=== PATIENT | female | born 1950 | race Caucasian/White ===

== ENCOUNTER 2017-05-30 09:42 | Inpatient (IN) | payer MEDICARE, MEDICAID ==
[2017-05-30 12:24] LABS: Hematocrit 31 % (35-47); Hemoglobin 10.5 g/dl (12.0-16.0); Mean Corpuscular HGB Conc 33 g/dl (31-36); Mean Corpuscular Hemoglobin 29 pg (27-31); Mean Corpuscular Volume 87 fL (80-97); Mean Platelet Volume 8 um3 (7.4-10.4); Red Blood Count 3.62 10^6/ul (4.0-5.4); Red Cell Distribution Width 16 % (10.5-15); White Blood Count 15.8 10^3/ul (3.5-10.8)
[2017-05-30 12:38] LABS: Albumin 2.9 g/dL (3.2-5.2); BUN/Creatinine Ratio 30.1 (8-20); C Reactive Protein 76.89 mg/L (< 5.00); Calcium 8.6 mg/dL (8.6-10.3); EGFR African American 101.7 (>60); Potassium 4.5 mmol/L (3.5-5.0); Total Bilirubin 0.3 mg/dL (0.2-1.0); Total Protein 5.9 g/dL (6.4-8.9)
[2017-05-30] MEDS ORDERED: Ketorolac INJ* 30 MG/ML 1 ML VIAL IV ONE (13:06)
--- NOTE | 2017-05-30 13:09 | RAD ---
INDICATION: Infection COMPARISON: None. TECHNIQUE: 4 views of the left heel were obtained. FINDINGS: The adequately corticated bones are properly aligned. Joint spaces appear maintained. Degenerative changes include enthesophyte formation at the origin of the plantar fascia on the calcaneal tubercle. No fracture, dislocation or focal bony abnormality is seen. IMPRESSION: No radiographically apparent acute abnormality of the left heel. If the patient's symptoms persist, follow-up imaging is recommended.
[2017-05-30] MEDS ORDERED: Meropenem 1 GM PREMIX(*) 1 GM/50 ML BAG IV ONE (14:19)
[2017-05-30] MEDS ORDERED: Vancomycin(*) 1,000 MG in NS 0.9% 250 ML* 250 ML IVPB ONE (14:19)
[2017-05-30] MEDS ORDERED: Dextrose 50% Syringe 50 ML* 25 GM/50 ML SYRINGE IV PUSH PRN ×2 (15:25)
[2017-05-30] MEDS ORDERED: Albuterol HFA INHALER* 8 gm MDI INH PRN (16:03)
[2017-05-30] MEDS: Furosemide TAB* 20 MG PO SCH (17:46)
[2017-05-30] MEDS: Insulin LISPRO* 1 UNITS UNIT SUBCUT SCH ×2 (17:46→17:47)
[2017-05-30] MEDS: Meropenem 1 GM PREMIX(*) 1 GM/50 ML BAG IV SCH (17:46)
[2017-05-30 18:11] LABS: Urine Bacteria Absent (Absent); Urine Bilirubin Negative (Negative); Urine Glucose Negative (Negative); Urine Nitrite Negative (Negative)
--- NOTE | 2017-05-30 18:46 | ED ---
Efrain Delgado Alfonso, scribed for Ash Joseph MD on 05/30/17 at 1137 . Skin Complaint - HPI Summary HPI Summary: This patient is a 67 year old F presenting to [facility] with a chief complaint of a left foot ulcer since one week ago. The patient rates the pain 10/10 in severity. Symptoms alleviated by nothing. Patient reports erythema and bleeding at the site. Patient denies drainage. PMHx includes DM. - History of Current Complaint Chief Complaint: EDRashSkinAbscess Time Seen by Provider: 05/30/17 11:30 Stated Complaint: LT FOOT PAIN Hx Obtained From: Patient Onset/Duration: Started Weeks Ago - 1, Still Present Timing: Constant Current Severity: Severe Pain Intensity: 10 Pain Scale Used: 0-10 Numeric Skin Location: Foot - L Character: Redness, Painful Alleviating Symptom(s): Nothing Associated Signs & Symptoms: Tenderness - Allergy/Home Medications Allergies/Adverse Reactions: Allergies Allergy/AdvReac Type Severity Reaction Status Date / Time Empagliflozin Allergy Stomach Verified 05/30/17 09:45 [From Jardiance] Cramps Penicillins Allergy Vomiting Verified 05/30/17 09:45 PMH/Surg Hx/FS Hx/Imm Hx Endocrine/Hematology History: Reports: Hx Diabetes Opthamlomology History: Denies: Hx Legally Blind EENT History: Denies: Hx Deafness Infectious Disease History: No Infectious Disease History: Denies: Traveled Outside the [place] in Last 30 Days - Social History Alcohol Use: None Hx Substance Use: No Substance Use Type: Reports: None Hx Tobacco Use: No Smoking Status (MU): Never Smoked Tobacco Review of Systems Negative: Fever Positive: Other - left foot ulcer, erythema and bleeding at the site; negative drainage All Other Systems Reviewed And Are Negative: Yes Physical Exam Triage Information Reviewed: Yes Vital Signs On Initial Exam: Initial Vitals Temp Pulse Resp BP Pulse Ox 97.9 F 71 16 135/53 96 05/30/17 09:46 05/30/17 09:46 05/30/17 09:46 05/30/17 09:46 05/30/17 09:46 Vital Signs Reviewed: Yes Appearance: Positive: Well-Appearing, No Pain Distress, Obese Skin: Positive: Warm, Skin Color Reflects Adequate Perfusion, Dry, Other - Open ulcer medial aspect of the left heal. 5-6 cm of surrounding erythema. Head/Face: Positive: Normal Head/Face Inspection Eyes: Positive: Normal ENT: Positive: Normal ENT inspection Neck: Positive: Supple, Nontender Respiratory/Lung Sounds: Positive: Clear to Auscultation, Breath Sounds Present Cardiovascular: Positive: RRR, Other - Capillary refill of 3 seconds at left foot. Abdomen Description: Positive: Nontender, Soft Bowel Sounds: Positive: Present Musculoskeletal: Positive: Other - Tenderness surrounding the ulcer. Neurological: Positive: Normal, Sensory/Motor Intact, Alert, Oriented to Person Place, Time, CN Intact II-III Psychiatric: Positive: Normal, Affect/Mood Appropriate Diagnostics - Vital Signs Vital Signs Temp Pulse Resp BP Pulse Ox 05/30/17 09:46 97.9 F 71 16 135/53 96 - Laboratory Lab Results: Lab Results 05/30/17 05/30/17 05/30/17 Range/Units 12:08 12:08 12:08 WBC 15.8 H (3.5-10.8) 10^3/ul RBC 3.62 L (4.0-5.4) 10^6/ul Hgb 10.5 L (12.0-16.0) g/dl Hct 31 L (35-47) % MCV 87 (80-97) fL MCH 29 (27-31) pg MCHC 33 (31-36) g/dl RDW 16 H (10.5-15) % Plt Count 370 (150-450) 10^3/ul MPV 8 (7.4-10.4) um3 Neut % (Auto) 79.9 (38-83) % Lymph % (Auto) 9.2 L (25-47) % Toole % (Auto) 9.0 (1-9) % Eos % (Auto) 1.3 (0-6) % Baso % (Auto) 0.6 (0-2) % Absolute Neuts (auto) 12.6 H (1.5-7.7) 10^3/ul Absolute Lymphs (auto) 1.5 (1.0-4.8) 10^3/ul Absolute Monos (auto) 1.4 H (0-0.8) 10^3/ul Absolute Eos (auto) 0.2 (0-0.6) 10^3/ul Absolute Basos (auto) 0.1 (0-0.2) 10^3/ul Absolute Nucleated RBC 0.01 10^3/ul Nucleated RBC % 0.1 INR (Anticoag Therapy) 1.14 H (0.89-1.11) Sodium 136 (133-145) mmol/L Potassium 4.5 (3.5-5.0) mmol/L Chloride 101 (101-111) mmol/L Carbon Dioxide 32 (22-32) mmol/L Anion Gap 3 (2-11) mmol/L BUN 22 (6-24) mg/dL Creatinine 0.73 (0.51-0.95) mg/dL Est GFR ( Amer) 101.7 (>60) Est GFR (Non-Af Amer) 79.0 (>60) BUN/Creatinine Ratio 30.1 H (8-20) Glucose 188 H (70-100) mg/dL Lactic Acid (0.5-2.0) mmol/L Calcium 8.6 (8.6-10.3) mg/dL Total Bilirubin 0.30 (0.2-1.0) mg/dL AST 15 (13-39) U/L ALT 23 (7-52) U/L Alkaline Phosphatase 106 H (34-104) U/L Troponin I 0.00 (<0.04) ng/mL C-Reactive Protein 76.89 H (< 5.00) mg/L Total Protein 5.9 L (6.4-8.9) g/dL Albumin 2.9 L (3.2-5.2) g/dL Globulin 3.0 (2-4) g/dL Albumin/Globulin Ratio 1.0 (1-3) 05/30/17 Range/Units 12:08 WBC (3.5-10.8) 10^3/ul RBC (4.0-5.4) 10^6/ul Hgb (12.0-16.0) g/dl Hct (35-47) % MCV (80-97) fL MCH (27-31) pg MCHC (31-36) g/dl RDW (10.5-15) % Plt Count (150-450) 10^3/ul MPV (7.4-10.4) um3 Neut % (Auto) (38-83) % Lymph % (Auto) (25-47) % Toole % (Auto) (1-9) % Eos % (Auto) (0-6) % Baso % (Auto) (0-2) % Absolute Neuts (auto) (1.5-7.7) 10^3/ul Absolute Lymphs (auto) (1.0-4.8) 10^3/ul Absolute Monos (auto) (0-0.8) 10^3/ul Absolute Eos (auto) (0-0.6) 10^3/ul Absolute Basos (auto) (0-0.2) 10^3/ul Absolute Nucleated RBC 10^3/ul Nucleated RBC % INR (Anticoag Therapy) (0.89-1.11) Sodium (133-145) mmol/L Potassium (3.5-5.0) mmol/L Chloride (101-111) mmol/L Carbon Dioxide (22-32) mmol/L Anion Gap (2-11) mmol/L BUN (6-24) mg/dL Creatinine (0.51-0.95) mg/dL Est GFR ( Amer) (>60) Est GFR (Non-Af Amer) (>60) BUN/Creatinine Ratio (8-20) Glucose (70-100) mg/dL Lactic Acid 1.4 (0.5-2.0) mmol/L Calcium (8.6-10.3) mg/dL Total Bilirubin (0.2-1.0) mg/dL AST (13-39) U/L ALT (7-52) U/L Alkaline Phosphatase (34-104) U/L Troponin I (<0.04) ng/mL C-Reactive Protein (< 5.00) mg/L Total Protein (6.4-8.9) g/dL Albumin (3.2-5.2) g/dL Globulin (2-4) g/dL Albumin/Globulin Ratio (1-3) Result Diagrams: 05/30/17 12:08 05/30/17 12:08 Lab Statement: Any lab studies that have been ordered have been reviewed, and results considered in the medical decision making process. - Radiology Heel X-ray Radiology Interpretation Completed By: Radiologist - No radiographically apparent acute abnormality of the left heel. If the patient's symptoms persist, follow-up imaging is recommended. ED physician has reviewed this radiology report and agrees. Course/Dx - Course Course Of Treatment: Ms. Henry presented with a diabetic foot ulcer that she has not had care for recently and has gotten red and painful. She looks acutely infected and was started on antibiotics and admitted to the hospitalist service. - Diagnoses Provider Diagnoses: Diabetic foot ulcer - Physician Notifications Discussed Care Of Patient With: Yoselin Dietz Time Discussed With Above Provider: 13:46 Instructed by Provider To: Other - Consulted Dr. Dietz (surgeon) at 1346 regarding the patients case. Discharge - Discharge Plan Condition: Stable Disposition: ADMITTED TO [facility] documentation as recorded by the Efrain segura Alfonso accurately reflects the service I personally performed and the decisions made by me, Ash Joseph MD.
--- NOTE | 2017-05-30 20:40 | PN ---
Progress Note - Progress Note Date of Service: 05/30/17 Note: Brief Note: (full surgery consult dictated; case discussed w/ Dr. Dietz) 67 yo w/ nonhealing painful Left heel ulcer s/p angioplasty w/ stenting of LLE ( at [facility] in the Spring of this year), with no arterial signals by handheld Doppler at bedside. Antibiotics initiated per hospitalist. Vascular lab will not do arterial study until details of above angio/stenting is available (I requested records). Will order MRI to r/o osteo (plain film was neg). May require CT angio to further define any potential options for revascularization. Will order her usual Eliquis for the present as there is no immediate anticipated indication for surgical intervention. Dr. Dietz to follow.
--- NOTE | 2017-05-30 20:41 | PN ---
Progress Note - Progress Note Date of Service: 05/30/17 Note: Obtained records from [facility] which confirm that patient is on eliquis for atrial fibrillation. There is no report of a history of TIA or stroke.
[2017-05-30] MEDS: celeCOXIB CAP* 200 MG PO SCH (22:03)
[2017-05-30] MEDS: Apixaban* 5 MG TAB PO SCH (22:03)
[2017-05-30] MEDS: Insulin GLARGINE(*) 1 UNITS UNIT SUBCUT SCH (22:04)
--- NOTE | 2017-05-30 22:21 | HP ---
CC: Andreina Meraz NP, [place]* [facility] MEDICINE HISTORY AND PHYSICAL: DATE OF ADMISSION: 05/30/17 PRIMARY CARE PHYSICIAN: Andreina Meraz NP in [place]. ATTENDING PHYSICIAN: Dr. Rohan Reed* (dictation provided by Nicole Deng NP). CHIEF COMPLAINT: Diabetic foot wound. HISTORY OF PRESENT ILLNESS: Ms. Henry is a 67-year-old female with a past medical history of diabetes, which is insulin dependent; hypertension; CHF of unknown type; and stents to her lower extremities for which she takes Xarelto, who presents to the hospital today with concern for diabetic foot ulcers. Ms. Henry has never been a patient at our hospital and is a very poor historian, but it appears from her report that she last was seen at [facility] in October or November of this year for the diabetic foot ulcer to her left heel. She states that she has no longer been able to afford wound care and other treatment for it. She has been following up with her primary care physician in [place]. She states it was healing well but then over the past week it began to look infected and become very painful. She has also noted ankle swelling and pain. She has seen some purulent drainage. She has had no fever. No chills. She denies other symptoms. She does report cough, which is nonproductive. She is a long-term smoker and continues to smoke about 5 cigarettes a day. She denies any chest pain. She has no nausea, vomiting, diarrhea, or abdominal pain. In the emergency room, Ms. Henry was confirmed to have odoriferous left medial heel ulceration. She had a heel x-ray that showed no evidence of osteomyelitis. She had an elevated white blood cell count of 15. Her CRP is elevated to 76.89. Gram stain shows polymicrobial infection with gram-positive and gram-negative bacteria. Her vitals are stable, she is afebrile. PAST MEDICAL HISTORY: 1. Type 2 diabetes, insulin dependent. 2. Hypertension. 3. Congestive heart failure, unknown type. 4. History of stents to her leg. 5. History of cataract surgery. 6. History of aortic valve surgery as a child. MEDICATIONS: 1. Apixaban 5 mg p.o. b.i.d. 2. Santyl daily p.r.n. 3. NovoLog insulin 20 units with each meal plus a sliding scale. 4. Lantus insulin 62 units subcutaneously before bed. 5. Atorvastatin 40 mg p.o. daily. 6. Diltiazem 240 mg p.o. daily. 7. Furosemide 20 mg in the p.m. and 40 mg in the a.m. 8. Metoprolol succinate 25 mg p.o. daily. 9. Celecoxib 200 mg p.o. b.i.d. ALLERGIES: To EMPAGLIFLOZIN and PENICILLINS. FAMILY HISTORY: The patient reports her mother of old age and dad related to injuries received in the war. SOCIAL HISTORY: The patient is a long-term smoker and started at age 11. She currently smokes about 5 cigarettes a day. She reports she drinks alcohol about once per year. No reported drug use. She lives alone, but states that her daughter, Blu, would be the healthcare proxy. REVIEW OF SYSTEMS: A 14-point review of systems was completed with Ms. Henry and all those not mentioned above were negative. PHYSICAL EXAMINATION GENERAL: Ms. Henry is sitting in the bed. She is in no acute distress. VITAL SIGNS: Temperature 97.9, pulse rate 71, respiratory rate 16, O2 saturation 98% on room air, blood pressure 150/29. LUNGS: Clear to auscultation bilaterally with no accessory muscle use and good aeration. HEART: S1 and S2. No murmur, rub, or gallop and regular. ABDOMEN: Soft, nontender with bowel sounds positive x4. EXTREMITIES: No cyanosis or edema. NEUROLOGIC: She is alert, she is oriented x3. She moves all extremities equally. There is no facial asymmetry or focal weakness. Extraocular movements are intact. SKIN: The patient has about a 3 cm oval diabetic foot ulcer to the medial portion of her left heel, it is purulent and odoriferous. She has some erythema on the front part of her crabtree, about half way up, which she states is new. LABORATORY DATA: WBC 15.8, hemoglobin 10.5, hematocrit 31, platelet count 370. INR 1.14. Sodium 136, potassium 4.5, chloride 101, serum bicarbonate 32, BUN 22, creatinine 0.73, glucose 188, lactic acid 1.4. Troponin 0.00. CRP 76.89. Heel x- ray shows no evidence of osteomyelitis. ASSESSMENT AND PLAN: Ms. Henry is a 67-year-old female with a past medical history of diabetes, which is insulin dependent; hypertension; peripheral vascular disease; and congestive heart failure, who presents to the hospital today with concern of a diabetic foot wound to her left heel. Plans are for inpatient admission as I expect her length of stay to be greater than 2 days for the followin. Diabetic foot wound: The patient likely has a polymicrobial infection. Plan to treat with meropenem. She will be seen in consultation by the surgical team to discuss debridement or other treatment. Plan to hold Eliquis in the event that surgical intervention is needed. She has leukocytosis, but no other markers for systemic inflammatory response syndrome and does not meet sepsis criteria today. She has no evidence of osteomyelitis on the heel x-ray. Plan to continue meropenem. 2. Suspected COPD: Patient becomes SOB when she is anxious but is not hypoxic on room air at this time. I have suggested to her that she likely has COPD based on her smoking history and have recommended that she use albuterol prn and consider follow up with Pulmonology. 3. Hypertension: Plan to continue patient's home furosemide and metoprolol. Continue diltiazem. 4. Congestive heart failure: No evidence of acute exacerbation. Continue furosemide. Plan to try to obtain records from [facility] as this is where the patient has had most of her care in the past. 5. Eliquis use: The patient states that she takes this because of her stents. I am suspicious that perhaps she has atrial fibrillation as she is on diltiazem and metoprolol as well as Eliquis. Again, we will look to obtain the records from [place]. 6. DVT prophylaxis with heparin subcu. 7. Code status is full code. TIME SPENT: Approximately 60 minutes were spent on the admission of this patient, more than half the time spent with the patient at the bedside reviewing the events leading up to this hospitalization, performing the physical examination, and reviewing the plan of care. NICOLE DENG NP [id number]/[facility] #: [id number] YUE
--- NOTE | 2017-05-31 00:11 | CONS ---
CC: [place]. [place]ina [place], [place]; V[facility] Service and Wound Clinic, [facility]* SURGICAL CONSULT NOTE: DATE OF CONSULT: 05/30/17 ATTENDING SURGEON: Yoselin Dietz MD CHIEF COMPLAINT: Left heel pain. HISTORY OF PRESENT ILLNESS: This is a 67-year-old diabetic, hypertensive, smoker, who has had a non-healing left heel ulcer since August of this year. She states that she underwent angioplasty and stenting x2 of the Left lower extremity in the Spring at [facility] with some improvement. She states that the heel ulcer had been relatively asymptomatic with gradual progression of healing, utilizing topical Santyl until approximately 1 week ago. At that time she noticed increased pain as well as some increase in size of the wound. At this point, she has pain all of the time and particularly with weightbearing or activity, i.e., walking. She denies fever or chills. She has been followed at the wound clinic in [place]. Her primary care office is in [place]. She has not had any other wound issues. She walks regularly and other than recently has not had claudication symptoms. A swab for C and S was taken in the ED; we are awaiting records from [facility]. PAST MEDICAL HISTORY: Type 2 diabetes, hypertension, CHF, hyperlipidemia, peripheral vascular disease, active smoker. She denies history of LA. She was treated as an inpatient for an arrhythmia related problem earlier this year. She denies history of chronic atrial fibrillation. She states that she is on Eliquis since her peripheral vascular intervention. She has not been seen for followup by Cardiology. PAST SURGICAL HISTORY: Left lower extremity angioplasty and stents x2 earlier this year, bilateral cataract extractions. CURRENT MEDICATIONS: Include: 1. Metoprolol. 2. Lantus. 3. NovoLog. 4. Furosemide. 5. Eliquis. 6. Celebrex. 7. Diltiazem. 8. Atorvastatin. 9. Santyl. She is on the hospitalist service and has vancomycin and meropenem ordered as well. DRUG ALLERGIES: Listed as PENICILLIN and EMPAGLIFLOZIN. I did not ask her about specific reactions. FAMILY HISTORY: Negative for bleeding or thromboembolic disease. SOCIAL HISTORY: The patient currently lives alone. She has a dog and a cat. She is a smoker of up to 2 packs per day since age 11, recently having cut down to 5 to 6 cigarettes per day, but still currently smoking. She drinks alcohol rarely and denies other drug use. REVIEW OF SYSTEMS: General: As above, no additions. Cardiovascular: As above , no additions. Respiratory: No history of asthma or COPD. Smoking history as noted. GI: No upper GI symptoms. Colonoscopy done more than 10 years ago. No interval problems reported. : No problems reported. She states that her renal function is normal. Endocrine: She is treated for type 2 diabetes. She states that her most recent A1c is 8.9, which is down from previous. She does fingersticks at home before each meal. She denies history of diabetic neuropathy. PHYSICAL EXAMINATION: Height 5 feet 2 inches, weight 233 pounds, BMI 42.6. Temperature 97.9. Blood pressure ranging from 129-150/29-70, pulse 71, respirations 16, room air saturation 98%. General: Well-nourished, obese female in no acute distress. Skin: Warm and dry. No suspicious rashes or lesions noted. See also below for extremities. Heart: Regular rate and rhythm , though heart tones are distant. No murmur appreciated. Lungs: Clear to auscultation. Abdomen: Obese. Extremities: Lower extremities noted for some dull erythema of the mid aspect of the left lower extremity which extends into the foot and toes. On the medial aspect of the left heel is an open wound measuring approximately 4.5 x 2.5 cm, is full thickness with some necrotic debris in the base. There is a rim a pallor surrounding most of the wound. There is up to 1 cm undermining along the inferior edge, but no evidence of abscess or collection. I am not specifically able to probe to bone. The area of the wound and around it are exquisitely tender to palpation. I am unable to palpate distal pulses on either foot. By Doppler, there is a weak dorsalis pedis signal on the right with absent posterior tibial. On the left, I am unable to obtain arterial signals at either DP or PT sites. There is decreased capillary refill in the left great toe as well and the toes are somewhat cool relative to the right foot. LABORATORY DATA: Of note, white blood cell count 15,800, hemoglobin 10.5, glucose 188, CRP 17. A plain film on the left foot was negative for osteomyelitis changes. She does have an osteophyte at the origin of the plantar fascia on the left. IMPRESSION: Non-healing painful left heel ulcer, likely arterial insufficiency related with possible secondary infection. PLAN: 1. Broad-spectrum antibiotics were initiated by the hospitalist team as noted above. Her case was discussed with Dr. Dietz. We will obtain non-invasive arterial studies and compare with baseline once her records from [place] are available. 2. MRI of the left heel to look for evidence of osteomyelitis. Ultimately, the patient may need additional intervention because of arterial insufficiency. The patient is aware of these findings and recommendations. ELISHA DAVIS [id number]/[facility] #: [id number] YUE
[2017-05-31] MEDS: Meropenem 1 GM PREMIX(*) 1 GM/50 ML BAG IV SCH ×2 (02:09→08:29)
[2017-05-31] MEDS ORDERED: Heparin VIAL(*) 5000 UNITS/ML VIAL (FIVE THOUSAND) SUBCUT SCH (06:00)
[2017-05-31] MEDS: Insulin LISPRO* 1 UNITS UNIT SUBCUT SCH ×6 (08:33→17:27)
[2017-05-31] MEDS: celeCOXIB CAP* 200 MG PO SCH ×2 (08:34→21:41)
[2017-05-31] MEDS: Diltiazem CD CAP* 240 MG PO SCH (08:34)
[2017-05-31] MEDS: Furosemide TAB* 40 MG PO SCH (08:34)
[2017-05-31] MEDS: Metoprolol Succinate XL TAB* 25 MG PO SCH (08:34)
[2017-05-31] MEDS: Atorvastatin* 40 MG TAB PO SCH (08:34)
[2017-05-31] MEDS: Apixaban* 5 MG TAB PO SCH ×2 (08:34→21:41)
[2017-05-31 09:23] LABS: Hematocrit 29 % (35-47); Hemoglobin 9.8 g/dl (12.0-16.0); Mean Corpuscular HGB Conc 34 g/dl (31-36); Mean Corpuscular Hemoglobin 29 pg (27-31); Mean Corpuscular Volume 86 fL (80-97); Mean Platelet Volume 8 um3 (7.4-10.4); Red Blood Count 3.41 10^6/ul (4.0-5.4); Red Cell Distribution Width 16 % (10.5-15); White Blood Count 12.4 10^3/ul (3.5-10.8)
[2017-05-31 09:49] LABS: BUN/Creatinine Ratio 38.4 (8-20); Calcium 8.1 mg/dL (8.6-10.3); EGFR African American 101.7 (>60); Potassium 4.3 mmol/L (3.5-5.0)
[2017-05-31] MEDS: oxyCODONE TAB* 5 MG TAB PO PRN ×2 (13:18→20:09)
--- NOTE | 2017-05-31 17:11 | RAD ---
INDICATION: Nonhealing ulcer. History of left SFA stent COMPARISON: None TECHNIQUE: Duplex interrogation of the left lower extremity was performed. FINDINGS: The common femoral artery and profunda femoris artery are both patent with normal waveforms and velocities of 121 and 140 cm/s. The SFA is patent although there are hemodynamically significant stenoses is noted below. There is arterial stenting of the mid and distal SFA. In the proximal SFA the velocities are 115 cm/s. More caudal proximal to the stent there velocities are 49 cm/s. Within the stent velocities of 44 cm/s are documented proximally and then there are 2 areas of stenosis, one in the midportion on the and one near the distal aspect of the stent near the joint line. Velocities of 503 and 340 cm/s, respectively, are documented. The popliteal artery is patent with a velocity 32 cm/s. There is no demonstrable flow in the posterior tibial artery. The anterior tibial artery shows slow flow of 12 cm/s. The vessels are very small in caliber. IMPRESSION: There are tandem lesions within the mid and distal aspect of an intra-arterial stent in the SFA. The two lesions are both hemodynamically significant. There is slow or absent flow within small caliber tibial vessels. Arteriography/CT angiography may be required for further characterization of these lesions and the for evaluation of the distal runoff as intervention may be required.
[2017-05-31] MEDS: Furosemide TAB* 20 MG PO SCH (17:26)
--- NOTE | 2017-05-31 17:48 | PN ---
Subjective Date of Service: 05/31/17 Interval History: Patient states that her foot hurts significantly, but that it has not increased since admission. Patient denies any systemic symptoms such as fevers, chills, nausea, vomiting. Patient denies CP, SOB, Abdominal Pain, dysuria, or other pain. Family History: Unchanged from Admission Social History: Unchanged from Admission Past Medical History: Unchanged from Admission Objective Active Medications: Albuterol (Ventolin Hfa Inhaler*) 1 puff INH Q4H PRN PRN Reason: SOB/WHEEZING Apixaban (Eliquis*) 5 mg PO BID [facility] Last Admin: 05/31/17 08:34 Dose: 5 mg Atorvastatin Calcium (Lipitor*) 40 mg PO DAILY [facility] Last Admin: 05/31/17 08:34 Dose: 40 mg Celecoxib (Celebrex Cap*) 200 mg PO BID [facility] Last Admin: 05/31/17 08:34 Dose: 200 mg Dextrose (D50w Syringe 50 Ml*) 12.5 gm IV PUSH .FOR FS < 60 - SS PRN PRN Reason: FS < 60 Diltiazem HCl (Cardizem Cd Cap*) 240 mg PO DAILY [facility] Last Admin: 05/31/17 08:34 Dose: 240 mg Furosemide (Lasix Tab*) 40 mg PO QAM [facility] Last Admin: 05/31/17 08:34 Dose: 40 mg Furosemide (Lasix Tab*) 20 mg PO QPM [facility] Last Admin: 05/31/17 17:26 Dose: 20 mg Cefepime HCl (Maxipime 2 Gm In Dextrose Duplex (*)) 2 gm in 50 mls @ 100 mls/ hr IV Q12H [facility] Insulin Glargine (Lantus(*)) 50 units SUBCUT BEDTIME [facility] Last Admin: 05/30/17 22:04 Dose: 50 unit Insulin Human Lispro (Humalog*) 0 units SUBCUT AC [facility] PRN Reason: Protocol Last Admin: 05/31/17 17:27 Dose: 3 units Insulin Human Lispro (Humalog*) 10 units SUBCUT AC [facility] Last Admin: 05/31/17 17:27 Dose: 10 units Metoprolol Succinate (Toprol Xl Tab*) 25 mg PO DAILY [facility] Last Admin: 05/31/17 08:34 Dose: 25 mg Oxycodone HCl (Roxycodone Tab*) 5 mg PO Q4H PRN PRN Reason: PAIN Last Admin: 05/31/17 13:18 Dose: 5 mg Vital Signs 05/30/17 05/30/17 05/31/17 19:14 23:25 02:28 Temperature 98.3 F 98.6 F Pulse Rate 78 77 19 Respiratory 20 16 70 Rate Blood Pressure 130/49 148/58 (mmHg) O2 Sat by Pulse 96 93 93 Oximetry 05/31/17 05/31/17 05/31/17 04:58 06:29 13:01 Temperature 98.9 F 98.3 F 98.1 F Pulse Rate 78 73 64 Respiratory 16 16 16 Rate Blood Pressure 127/40 129/38 109/44 (mmHg) O2 Sat by Pulse 92 92 96 Oximetry 05/31/17 05/31/17 13:18 13:37 Temperature Pulse Rate 100 Respiratory 19 14 Rate Blood Pressure (mmHg) O2 Sat by Pulse 93 Oximetry Oxygen Devices in Use Now: None Appearance: Patient is a 67yo female who appears stated age and is lying comfortably in the bed in [facility]. Eyes: No Scleral Icterus, PERRLA Ears/Nose/Mouth/Throat: NL Teeth, Lips, Gums, Clear Oropharnyx, Mucous Membranes Moist Neck: NL Appearance and Movements; NL JVP, Trachea Midline, No Thyroid Enlargement, Masses Respiratory: Symmetrical Chest Expansion and Respiratory Effort, Clear to Auscultation Cardiovascular: NL Sounds; No Murmurs; No JVD, RRR, No Edema Abdominal: NL Sounds; No Tenderness; No Distention, No Hepatosplenomegaly Lymphatic: No Cervical Adenopathy Extremities: No Edema, - - Approximately 2cm x 2cm ulceration with black exchar , a moist wound base and positive probe to bone on the medial aspect of the left heel. Skin: No Rash or Ulcers Neurological: Alert and Oriented x 3, - - CN II-XII intact. Result Diagrams: 05/31/17 08:26 05/31/17 08:26 Additional Lab and Data: Lab Results 05/30/17 05/30/17 05/30/17 Range/Units 12:08 12:08 12:08 WBC 15.8 H (3.5-10.8) 10^3/ul RBC 3.62 L (4.0-5.4) 10^6/ul Hgb 10.5 L (12.0-16.0) g/dl Hct 31 L (35-47) % MCV 87 (80-97) fL MCH 29 (27-31) pg MCHC 33 (31-36) g/dl RDW 16 H (10.5-15) % Plt Count 370 (150-450) 10^3/ul MPV 8 (7.4-10.4) um3 Neut % (Auto) 79.9 (38-83) % Lymph % (Auto) 9.2 L (25-47) % [place] % (Auto) 9.0 (1-9) % Eos % (Auto) 1.3 (0-6) % Baso % (Auto) 0.6 (0-2) % Absolute Neuts (auto) 12.6 H (1.5-7.7) 10^3/ul Absolute Lymphs (auto) 1.5 (1.0-4.8) 10^3/ul Absolute Monos (auto) 1.4 H (0-0.8) 10^3/ul Absolute Eos (auto) 0.2 (0-0.6) 10^3/ul Absolute Basos (auto) 0.1 (0-0.2) 10^3/ul Absolute Nucleated RBC 0.01 10^3/ul Nucleated RBC % 0.1 INR (Anticoag Therapy) 1.14 H (0.89-1.11) Sodium 136 (133-145) mmol/L Potassium 4.5 (3.5-5.0) mmol/L Chloride 101 (101-111) mmol/L Carbon Dioxide 32 (22-32) mmol/L Anion Gap 3 (2-11) mmol/L BUN 22 (6-24) mg/dL Creatinine 0.73 (0.51-0.95) mg/dL Est GFR ( Amer) 101.7 (>60) Est GFR (Non-Af Amer) 79.0 (>60) BUN/Creatinine Ratio 30.1 H (8-20) Glucose 188 H (70-100) mg/dL Lactic Acid (0.5-2.0) mmol/L Calcium 8.6 (8.6-10.3) mg/dL Total Bilirubin 0.30 (0.2-1.0) mg/dL AST 15 (13-39) U/L ALT 23 (7-52) U/L Alkaline Phosphatase 106 H (34-104) U/L Troponin I 0.00 (<0.04) ng/mL C-Reactive Protein 76.89 H (< 5.00) mg/L Total Protein 5.9 L (6.4-8.9) g/dL Albumin 2.9 L (3.2-5.2) g/dL Globulin 3.0 (2-4) g/dL Albumin/Globulin Ratio 1.0 (1-3) Assess/Plan/Problems-Billing Assessment: Patient is a 67yo female with a PMH significant for DM II with a HbA1c of 9.0, CHF, HTN, and chronic foot ulcer with previous revascularization who presents with concern for worsening pain in her foot. Will consider revascularization and continue on IV antibiotics. - Patient Problems (1) Chronic foot ulcer with necrosis of muscle Current Visit: Yes Status: Acute Code(s): L97.503 - NON-PRS CHRONIC ULCER OTH PRT UNSP FOOT W NECROSIS OF MUSCLE SNOMED Code(s): 450935820 Comment: Chronic foot ulcer with increased CRP and WBC count. No current systemic symptoms. Used to go to wound care at [place] but stopped due to financial concerns. Had previous revascularization and did not notice any improvement afterwards. Is willing to undergo repeat revascularization. Arterial ultrasound of the left leg ordered and completed per interventional radiology. Probe to bone positive in ulcer bed. Unable to MRI due to stents, will consider further imaging based on ID recommendations. Switched from Meropenum to Cefepime and vancomycin per ID, Appreciate input. (2) Diabetes mellitus Current Visit: Yes Status: Acute Code(s): E11.9 - TYPE 2 DIABETES MELLITUS WITHOUT COMPLICATIONS SNOMED Code(s): 54620132 Comment: Patient states that her FSBG is usally between 100 and 200 at home. HbA1c 9.0%. FSBG between 150 and 250 in hospital. Will increase basal insulin based on SSI dosage Continue Glargine 50u daily and SSI insulin with 10u scheduled AC. (3) Atrial fibrillation Current Visit: Yes Status: Acute Code(s): I48.91 - UNSPECIFIED ATRIAL FIBRILLATION SNOMED Code(s): 87660968 Comment: No EKG obtained at admission, will order one now. Regular rhythm on exam. Non- tachycardic. On Eliquis (4) Hypertension Current Visit: Yes Status: Acute Code(s): I10 - ESSENTIAL (PRIMARY) HYPERTENSION SNOMED Code(s): 32145083 Comment: Continue cardizem, metoprolol, and lasix. Normotensive. (5) CHF (congestive heart failure) Current Visit: Yes Status: Acute Code(s): I50.9 - HEART FAILURE, UNSPECIFIED SNOMED Code(s): 86078412 Comment: Continue lasix. Unknown type, will order echo if indicated for surgery. (6) Tobacco abuse Current Visit: Yes Status: Acute Code(s): Z72.0 - TOBACCO USE SNOMED Code( s): 478533224 Comment: Patient smokes 7 cigarettes a day, not interested in quitting at this time. Counseled that this would aid in healing of foot ulcer. (7) DVT prophylaxis Current Visit: Yes Status: Acute Code(s): TRY6393 - SNOMED Code(s): 902296075 Comment: Trinity (8) Full code status Current Visit: Yes Status: Acute Code(s): Z78.9 - OTHER SPECIFIED HEALTH STATUS SNOMED Code(s): 580800024 Status and Disposition: Patient is admitted inpatient and will be discharged when medically able.
[2017-05-31] MEDS: Cefepime 2 GM in Dextrose(*) 2 GM/50 ML BAG IV SCH (20:04)
[2017-05-31] MEDS: Insulin GLARGINE(*) 1 UNITS UNIT SUBCUT SCH (21:42)
[2017-06-01 07:10] LABS: Hematocrit 29 % (35-47); Hemoglobin 9.6 g/dl (12.0-16.0); Mean Corpuscular HGB Conc 33 g/dl (31-36); Mean Corpuscular Hemoglobin 28 pg (27-31); Mean Corpuscular Volume 86 fL (80-97); Mean Platelet Volume 8 um3 (7.4-10.4); Red Cell Distribution Width 16 % (10.5-15); White Blood Count 11.6 10^3/ul (3.5-10.8)
[2017-06-01 07:46] LABS: BUN/Creatinine Ratio 41.5 (8-20); C Reactive Protein 58.21 mg/L (< 5.00); Calcium 8.5 mg/dL (8.6-10.3); EGFR African American 116.2 (>60); EGFR Non-African American 90.4 (>60); Potassium 4.3 mmol/L (3.5-5.0)
[2017-06-01] MEDS: Furosemide TAB* 40 MG PO SCH (08:43)
[2017-06-01] MEDS: Apixaban* 5 MG TAB PO SCH ×2 (08:43→19:53)
[2017-06-01] MEDS: Metoprolol Succinate XL TAB* 25 MG PO SCH (08:45)
[2017-06-01] MEDS: Atorvastatin* 40 MG TAB PO SCH (08:45)
[2017-06-01] MEDS: celeCOXIB CAP* 200 MG PO SCH ×2 (08:46→19:55)
[2017-06-01] MEDS: Diltiazem CD CAP* 240 MG PO SCH (08:46)
[2017-06-01] MEDS: Insulin LISPRO* 1 UNITS UNIT SUBCUT SCH ×6 (08:47→17:45)
[2017-06-01] MEDS: Cefepime 2 GM in Dextrose(*) 2 GM/50 ML BAG IV SCH ×2 (08:51→19:52)
[2017-06-01] MEDS: oxyCODONE TAB* 5 MG TAB PO PRN ×3 (10:04→22:58)
--- NOTE | 2017-06-01 12:12 | CONS ---
CONSULTATION REPORT: DATE OF CONSULT: 06/01/17 REQUESTING PROVIDER: ELISHA Garrett CONSULTING SERVICE: Infectious Disease. REASON FOR CONSULT: Left heel ulcer. IMPRESSION: 1. Left medial ankle and calcaneus ulceration present for about 10 months, undoubtedly there is und erlying calcaneal chronic osteomyelitis. Also, these are polymicrobial. A PCR for methicillin-resi stant Staphylococcus aureus was negative. A Gram stain showed gram-positive cocci and gram-negative bacilli. There is no associated cellulitis. 2. Peripheral vascular disease with a history of lower extremity stenting. 3. Diabetes with neuropathy. 4. Obesity. RECOMMENDATION: We will start meropenem and vancomycin, start cefepime and oral Flagyl, and ask [facility] to see her for possible calcaneal debridement. We will plan on few weeks of IV antibiotics if we are able to get a setup after she leaves here. HISTORY OF PRESENT ILLNESS: This 67-year-old woman with diabetes and neuropathy admitted with left heel ulceration and pain. It has been there since August when she had a small blister that started from a sneaker, she thinks. Subsequently, she was followed at the wound clinic in [place] for numb er of debridements, which she states were killing her and they attempted to initiate hyperbaric ther apy, which she did not feel was appropriate and has not undertaken. She had worsening pain recently and came to the ER on 05/30/17 and x-ray of the region on that date showed no bony changes. Artery duplex scan showed lesions in the mid and distal intraarterial stent in the SFA on the left, which are hemodynamically significant. Left heel is very painful especially with weightbearing. The ulcer drains fluid. She had tried to k eep it dressed as best as she could; it has been dressed here. Sample was taken with Gram stain and PCR also above. The cultures are pending. Her blood cultures are negative here. She has been afebr ile, tolerating antibiotics well. PAST MEDICAL HISTORY: 1. Diabetes with peripheral neuropathy. 2. Peripheral vascular disease. 3. History of left SFA stent. 4. Hypertension. 5. Congestive heart failure. 6. Status post cataract surgery. 7. Status post aortic valve repair. MEDICATIONS: 1. Albuterol. 2. Eliquis. 3. Lipitor. 4. Lasix. 5. Insulin glargine. 6. Insulin lispro. 7. Metoprolol. 8. Celebrex. 9. Oxycodone. 10. Meropenem. ALLERGIES: PENICILLIN and EMPAGLIFLOZIN. FAMILY HISTORY: No recurrent infections. SOCIAL HISTORY: She lives in [place] by herself. She has a horse. She has no travel. No sic k contact. REVIEW OF SYSTEMS: All negative 14-point review of systems except as noted above. PHYSICAL EXAM: Vital Signs: Temperature 37, heart rate 60, respiratory rate 16, blood pressure 120 /50, O2 sat is 97% on room air. In general, she is awake, not in distress. Neurologic: She is ade ented x3. She has decreased sensation in both feet. HEENT: There is no thrush. Heart has regular rate and rhythm without murmurs, rubs, or gallops. Lungs are clear to auscultation bilaterally. A bdomen: Soft, nontender and nondistended. There are bowel sounds present. Skin: There are no rash es or hemorrhages. Musculoskeletal: Left medial heel, there is a 2.5- cm ulceration with some fibr inous exudate, surrounding erythema, foul odor. LABORATORY DATA: Creatinine 0.6. CRP 58. White blood cell count 11.6, hemoglobin 9.6, platelets 3 90. Urinalysis shows ketones in the blood. Please see impression and recommendations as outlined above, which I have discussed ELISHA Garrett. Thank you for asking me to see Ms. Henry in consultation. [id number]/[facility] #: [id number]
[2017-06-01] MEDS: metroNIDAZOLE TAB* 250 MG PO SCH ×2 (14:10→19:52)
[2017-06-01] MEDS: Acetaminophen TAB* 325 MG PO PRN (15:30)
--- NOTE | 2017-06-01 16:09 | PN ---
Subjective Date of Service: 06/01/17 Interval History: Patient has no acute complaints. No systemic symptoms. Pain in foot controlled with oxycodone and tylenol. No CP, SOB, N/V, Abdominal Pain, F/C, or numbness or tingling in the extremities, diarrhea, dysuria, or other pain. Family History: Unchanged from Admission Social History: Unchanged from Admission Past Medical History: Unchanged from Admission Objective Active Medications: Acetaminophen (Tylenol Tab*) 650 mg PO Q6H PRN PRN Reason: PAIN Last Admin: 06/01/17 15:30 Dose: 650 mg Albuterol (Ventolin Hfa Inhaler*) 1 puff INH Q4H PRN PRN Reason: SOB/WHEEZING Apixaban (Eliquis*) 5 mg PO BID [facility] Last Admin: 06/01/17 08:43 Dose: 5 mg Atorvastatin Calcium (Lipitor*) 40 mg PO DAILY [facility] Last Admin: 06/01/17 08:45 Dose: 40 mg Celecoxib (Celebrex Cap*) 200 mg PO BID [facility] Last Admin: 06/01/17 08:46 Dose: 200 mg Dextrose (D50w Syringe 50 Ml*) 12.5 gm IV PUSH .FOR FS < 60 - SS PRN PRN Reason: FS < 60 Diltiazem HCl (Cardizem Cd Cap*) 240 mg PO DAILY [facility] Last Admin: 06/01/17 08:46 Dose: 240 mg Furosemide (Lasix Tab*) 40 mg PO QAM [facility] Last Admin: 06/01/17 08:43 Dose: 40 mg Furosemide (Lasix Tab*) 20 mg PO QPM [facility] Last Admin: 05/31/17 17:26 Dose: 20 mg Cefepime HCl (Maxipime 2 Gm In Dextrose Duplex (*)) 2 gm in 50 mls @ 100 mls/ hr IV Q12H [facility] Last Admin: 06/01/17 08:51 Dose: 100 mls/hr Insulin Glargine (Lantus(*)) 50 units SUBCUT BEDTIME [facility] Last Admin: 05/31/17 21:42 Dose: 50 unit Insulin Human Lispro (Humalog*) 0 units SUBCUT AC [facility] PRN Reason: Protocol Last Admin: 06/01/17 12:12 Dose: Not Given Insulin Human Lispro (Humalog*) 10 units SUBCUT AC [facility] Last Admin: 06/01/17 12:45 Dose: 10 units Metoprolol Succinate (Toprol Xl Tab*) 25 mg PO DAILY [facility] Last Admin: 06/01/17 08:45 Dose: 25 mg Metronidazole (Flagyl Tab*) 500 mg PO TID [facility] Last Admin: 06/01/17 14:10 Dose: 500 mg Oxycodone HCl (Roxycodone Tab*) 5 mg PO Q4H PRN PRN Reason: PAIN Last Admin: 06/01/17 10:04 Dose: 5 mg Vital Signs 05/31/17 05/31/17 05/31/17 19:02 20:09 22:09 Temperature 98.0 F Pulse Rate 73 Respiratory 20 22 18 Rate Blood Pressure 115/44 (mmHg) O2 Sat by Pulse 94 Oximetry 06/01/17 06/01/17 06/01/17 00:11 00:34 00:35 Temperature 97.7 F Pulse Rate 68 Respiratory 16 16 18 Rate Blood Pressure 106/39 (mmHg) O2 Sat by Pulse 90 Oximetry 06/01/17 06/01/17 06/01/17 03:45 08:00 08:19 Temperature 98.0 F 98.3 F Pulse Rate 65 65 Respiratory 16 16 Rate Blood Pressure 104/42 120/53 (mmHg) O2 Sat by Pulse 92 97 Oximetry 06/01/17 06/01/17 10:04 12:04 Temperature Pulse Rate Respiratory 16 16 Rate Blood Pressure (mmHg) O2 Sat by Pulse Oximetry Oxygen Devices in Use Now: None Appearance: Patient is a 67yo female who appears stated age and is sitting in the exam bed in [facility]. Eyes: No Scleral Icterus, PERRLA Ears/Nose/Mouth/Throat: NL Teeth, Lips, Gums, Clear Oropharnyx, Mucous Membranes Moist Neck: NL Appearance and Movements; NL JVP Respiratory: Symmetrical Chest Expansion and Respiratory Effort, Clear to Auscultation Cardiovascular: NL Sounds; No Murmurs; No JVD, RRR, No Edema Abdominal: NL Sounds; No Tenderness; No Distention, No Hepatosplenomegaly Lymphatic: No Cervical Adenopathy Extremities: - - 1+ edema slightly worse in left leg than right. Skin: No Nodules or Sclerosis, - - Approximately 2cm x 2cm x 1cm deep wound on left heel with no surrounding cellulitis. Positive probe to bone. Neurological: Alert and Oriented x 3, NL Gait, - - CN II-XII intact. Result Diagrams: 06/01/17 06:46 06/01/17 06:46 Additional Lab and Data: Lab Results Abnormal Lab Results 05/30/17 05/31/17 06/01/17 12:08 17:10 06:46 WBC 11.6 H RBC 3.40 L Hgb 9.6 L Hct 29 L MCV 86 MCH 28 MCHC 33 RDW 16 H Plt Count 390 MPV 8 Neut % (Auto) 69.5 Lymph % (Auto) 15.[address] [place] % (Auto) 11.4 H Eos % (Auto) 2.8 Baso % (Auto) 1.1 Absolute Neuts (auto) 8.0 H Absolute Lymphs (auto) 1.8 Absolute Monos (auto) 1.3 H Absolute Eos (auto) 0.3 Absolute Basos (auto) 0.1 Absolute Nucleated RBC 0 Nucleated RBC % 0 Sodium Potassium Chloride Carbon Dioxide Anion Gap BUN Creatinine Est GFR ( Amer) Est GFR (Non-Af Amer) BUN/Creatinine Ratio Glucose POC Glucose (mg/dL) 178 H Hemoglobin A1c 9.0 H Calcium C-Reactive Protein B-Natriuretic Peptide 06/01/17 06/01/17 06/01/17 06:46 06:46 07:47 WBC RBC Hgb Hct MCV MCH MCHC RDW Plt Count MPV Neut % (Auto) Lymph % (Auto) [place] % (Auto) Eos % (Auto) Baso % (Auto) Absolute Neuts (auto) Absolute Lymphs (auto) Absolute Monos (auto) Absolute Eos (auto) Absolute Basos (auto) Absolute Nucleated RBC Nucleated RBC % Sodium 139 Potassium 4.3 Chloride 105 Carbon Dioxide 30 Anion Gap 4 BUN 27 H Creatinine 0.65 Est GFR ( Amer) 116.2 Est GFR (Non-Af Amer) 90.4 BUN/Creatinine Ratio 41.5 H Glucose 82 POC Glucose (mg/dL) 87 Hemoglobin A1c Calcium 8.5 L C-Reactive Protein 58.21 H B-Natriuretic Peptide 76 06/01/17 11:56 WBC RBC Hgb Hct MCV MCH MCHC RDW Plt Count MPV Neut % (Auto) Lymph % (Auto) [place] % (Auto) Eos % (Auto) Baso % (Auto) Absolute Neuts (auto) Absolute Lymphs (auto) Absolute Monos (auto) Absolute Eos (auto) Absolute Basos (auto) Absolute Nucleated RBC Nucleated RBC % Sodium Potassium Chloride Carbon Dioxide Anion Gap BUN Creatinine Est GFR ( Amer) Est GFR (Non-Af Amer) BUN/Creatinine Ratio Glucose POC Glucose (mg/dL) 74 Hemoglobin A1c Calcium C-Reactive Protein B-Natriuretic Peptide Microbiology and Other Data: Microbiology 05/30/17 12:08 Aerobic Blood Culture - Preliminary Blood Venous Anaerobic Blood Culture - Preliminary No Growth Day 2 Blood Culture - Final 05/30/17 12:12 Aerobic Blood Culture - Preliminary Blood Venous No Growth Day 2 Anaerobic Blood Culture - Preliminary No Growth Day 2 Blood Culture - Final 05/30/17 12:08 Skin and Soft Tissue MRSA/MSSA (PCR - Final Foot Left Mrsa Negative S.aureus Negative Gram Stain - Final Wound Culture - Preliminary [place] Species Assess/Plan/Problems-Billing Assessment: Patient is a 67yo female with a PMH significant for DM II with a HbA1c of 9.0, CHF, HTN, and chronic foot ulcer with previous revascularization who presents with concern for worsening pain in her foot secondary to chronic ulcer. Will consider revascularization inpatient or outpatient and continue on IV antibiotics. 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 No current systemic symptoms. Used to go to wound care at [place] but stopped due to financial concerns. Had previous revascularization and did not notice any improvement afterwards. Is willing to undergo repeat revascularization. Positive probe to bone with presumed osteomyelitis. Appreciate ID input. Continue to IV Cefepime and Oral Flagyl. Arterial ultrasound of the left leg ordered and completed per interventional radiology. (2) Osteomyelitis Current Visit: Yes Status: Acute Code(s): M86.9 - OSTEOMYELITIS, UNSPECIFIED SNOMED Code(s): 74955287 Comment: Presumed, of Calcaneus. No need for MRI or bone scan per ID. Treat empirically with Cefepime and Flagyl. Surgery Consulted for possible debridement of calcaneus. Gram Positive Bacilli present in aerobic blood culture. Will await sensitivities. (3) Diabetes mellitus Current Visit: Yes Status: Acute Code(s): E11.9 - TYPE 2 DIABETES MELLITUS WITHOUT COMPLICATIONS SNOMED Code(s): 38548771 Comment: Patient states that her FSBG is usally between 100 and 200 at home. HbA1c 9.0%. FSBG well controlled aorund 100. Continue Glargine 50u daily and SSI insulin with 10u scheduled AC. Will decrease if symptomatic for hypoglycemia. (4) Atrial fibrillation Current Visit: Yes Status: Acute Code(s): I48.91 - UNSPECIFIED ATRIAL FIBRILLATION SNOMED Code(s): 85774806 Comment: EKG shows NSR. Non-tachycardic. Patient was very aware when she went into Afib due to SOB and chest pressure. Was cardioverted out and has had no repeat symptoms since then. On Eliquis (5) Hypertension Current Visit: Yes Status: Acute Code(s): I10 - ESSENTIAL (PRIMARY) HYPERTENSION SNOMED Code(s): 24923394 Comment: Continue cardizem, metoprolol, and lasix. Normotensive. (6) CHF (congestive heart failure) Current Visit: Yes Status: Acute Code(s): I50.9 - HEART FAILURE, UNSPECIFIED SNOMED Code(s): 49237571 Comment: Continue lasix. Unknown type, will order echo if indicated for surgery. (7) Tobacco abuse Current Visit: Yes Status: Acute Code(s): Z72.0 - TOBACCO USE SNOMED Code( s): 833093986 Comment: Patient smokes 7 cigarettes a day, not interested in quitting at this time. Counseled that this would aid in healing of foot ulcer. (8) DVT prophylaxis Current Visit: Yes Status: Acute Code(s): GCE6191 - SNOMED Code(s): 380472634 Comment: Trinity (9) Full code status Current Visit: Yes Status: Acute Code(s): Z78.9 - OTHER SPECIFIED HEALTH STATUS SNOMED Code(s): 984340490 Status and Disposition: Patient is admitted inpatient and will be discharged when medically able. Estimated 1-2 days.
[2017-06-01] MEDS: Furosemide TAB* 20 MG PO SCH (17:44)
--- NOTE | 2017-06-01 19:39 | PN ---
Progress Note - Progress Note Date of Service: 06/01/17 Note: Surgery Progress: S: states she feels about the same, i.e., pain in the L heel is still significant. ID consult note reviewed as well as wound care nurse. Outside records from [facility] from 09/17/16 also reviewed, including the fact that patient has single-vessel runoff (peroneal) which is also stenosed. O: Vital Signs - 8 hr 06/01/17 06/01/17 06/01/17 12:04 14:36 15:10 Temperature 99.1 F 99.1 F Pulse Rate 66 66 Respiratory 16 12 12 Rate Blood Pressure 120/47 120/47 (mmHg) O2 Sat by Pulse 92 92 Oximetry 06/01/17 16:37 Temperature Pulse Rate Respiratory 16 Rate Blood Pressure (mmHg) O2 Sat by Pulse Oximetry No PE performed. A: ischemic Left LE wound w/ osteomyelitis (presumed by hx) P: agree w/ IV abx, but patient also needs arterial flow which at present is very limited; I discussed w/ ELISHA Phillip; there is a consult request for IR ( consideration for CT angio vs on-table angio w/ intervention); patient understands that she may need bypass, if that is even feasible.
[2017-06-01] MEDS: Insulin GLARGINE(*) 1 UNITS UNIT SUBCUT SCH (19:56)
[2017-06-02 07:49] LABS: Hematocrit 30 % (35-47); Hemoglobin 9.3 g/dl (12.0-16.0); Mean Corpuscular HGB Conc 32 g/dl (31-36); Mean Corpuscular Hemoglobin 28 pg (27-31); Mean Corpuscular Volume 88 fL (80-97); Red Blood Count 3.38 10^6/ul (4.0-5.4); Red Cell Distribution Width 16 % (10.5-15); White Blood Count 12.6 10^3/ul (3.5-10.8)
[2017-06-02 07:50] LABS: Add Diff/Slide Review? Slide Review Added; Comments Flag Yes
[2017-06-02] MEDS: Insulin LISPRO* 1 UNITS UNIT SUBCUT SCH ×6 (08:02→17:39)
[2017-06-02 08:10] LABS: BUN/Creatinine Ratio 40.9 (8-20); Calcium 8.5 mg/dL (8.6-10.3); EGFR African American 114.2 (>60); EGFR Non-African American 88.8 (>60); Potassium 4.6 mmol/L (3.5-5.0)
[2017-06-02 08:22] LABS: Mean Platelet Volume 8 um3 (7.4-10.4)
[2017-06-02] MEDS: Diltiazem CD CAP* 240 MG PO SCH (08:38)
[2017-06-02] MEDS: celeCOXIB CAP* 200 MG PO SCH ×2 (08:39→20:24)
[2017-06-02] MEDS: Apixaban* 5 MG TAB PO SCH ×2 (08:39→20:24)
[2017-06-02] MEDS: Atorvastatin* 40 MG TAB PO SCH (08:39)
[2017-06-02] MEDS: Metoprolol Succinate XL TAB* 25 MG PO SCH (08:39)
[2017-06-02] MEDS: Furosemide TAB* 40 MG PO SCH (08:39)
[2017-06-02] MEDS: metroNIDAZOLE TAB* 250 MG PO SCH ×3 (08:39→20:24)
[2017-06-02] MEDS: oxyCODONE TAB* 5 MG TAB PO PRN ×3 (08:40→21:11)
[2017-06-02] MEDS: Cefepime 2 GM in Dextrose(*) 2 GM/50 ML BAG IV SCH ×3 (08:42→22:51)
--- NOTE | 2017-06-02 08:51 | CONSULT ---
Consult Consult: Date of Service: 06/02/17 Reason for Consultation: Non-healing left heel ulcer in a vasculopath (Focused) HPI: Mrs. Xavier is a 67 yof admitted to the hospital with non-healing left heel ulcer and signs of sepsis. She has a long cigarette smoking history (currently smokes ~5 cigarettes daily) and subsequent vasculopathy. Over the past winter she was experiencing claudication symptoms and On 09/20/16 she underwent LLE angiography with bare metal stenting of the distal left SFA and balloon agnioplasty of the popliteal artery and single runoff peroneal artery. About a month ago she noticed a painful wound at the left heel that progressively worsened prompting admission to the hospital. PAST MEDICAL HISTORY: 1. Type 2 diabetes, insulin dependent. 2. Hypertension. 3. Congestive heart failure, unknown type. 4. History of stents to her leg. 5. History of cataract surgery. 6. History of aortic valve surgery as a child. MEDICATIONS: 1. Apixaban 5 mg p.o. b.i.d. 2. Santyl daily p.r.n. 3. NovoLog insulin 20 units with each meal plus a sliding scale. 4. Lantus insulin 62 units subcutaneously before bed. 5. Atorvastatin 40 mg p.o. daily. 6. Diltiazem 240 mg p.o. daily. 1 of 3 PE: Selected Entries 06/02/17 06/02/17 07:13 08:40 Temperature 97.9 F Temperature Oral Source Pulse Rate 66 Respiratory 18 Rate Blood Pressure 111/89 (mmHg) Blood Pressure 94 Mean O2 Sat by Pulse 94 Oximetry Patient on Room Yes Air NAD, AAO x 3 RRR, 2/6 SFM CTAB with vesicular breath sounds Abdomen is soft,nontender 2+ pulses at BUE, BL [employer] LLE pop and pedal pulses nonpalpable Malodorous left heel wound was not undressed Data: Laboratory Tests 05/30/17 05/31/17 06/01/17 12:08 08:26 06:46 WBC 15.8 H 12.4 H 11.6 H RBC Hgb Hct 06/02/17 06:32 WBC 12.6 H RBC 3.38 L Hgb 9.3 L Hct 30 L Patient Name: PRESLEY XAVIER Medical Record#: [id number] Ordering Physician: Noé TELLO Acct.#: [id number] : 1950 Age: 67 Sex: F Location: [address] [place] [address] Exam Date: 05/31/17 1352 ADM Status: ADM IN Order Information: VL LOWER EXT ART DUPLEX LEFT Accession Number: [id number] CPT: 83922 INDICATION: Nonhealing ulcer. History of left SFA stent COMPARISON: None TECHNIQUE: Duplex interrogation of the left lower extremity was performed. FINDINGS: The common femoral artery and profunda femoris artery are both patent with normal waveforms and velocities of 121 and 140 cm/s. The SFA is patent although there are hemodynamically significant stenoses is noted below. There is arterial stenting of the mid and distal SFA. In the proximal SFA the velocities are 115 cm/s. More caudal proximal to the stent there velocities are 49 cm/s. Within the stent velocities of 44 cm/s are documented proximally and then there are 2 areas of stenosis, one in the midportion on the and one near the distal aspect of the stent near the joint line. Velocities of 503 and 340 cm/s, respectively, are documented. The popliteal artery is patent with a velocity 32 cm/s. There is no demonstrable flow in the posterior tibial artery. The anterior tibial artery shows slow flow of 12 cm/s. The vessels are very small in caliber. IMPRESSION: There are tandem lesions within the mid and distal aspect of an intra-arterial stent in the SFA. The two lesions are both hemodynamically significant. There is slow or absent flow within small caliber tibial vessels. Arteriography/CT angiography may be required for further characterization of these lesions and the for evaluation of the distal runoff as intervention may be required. <Electronically signed by Noé Chilel MD in OV> 05/31/171706 Dictated By: Noé Chilel MD Dictated Date/Time: 05/31/171706 Transcribed Date/Time: 05/31/171655 Copy to: CC:Yoselin Dietz MD; Brian Morales MD; Rohan Reed MD; Non Staff,Doctor ; Noé Phillip ND Imaging - [facility] Imaging - [facility] Imaging - [facility] [address] [address] ph [phone]) ph ([phone]) ph ([phone]) Assessment: 67 year old vasculopath with left heel critical limb ischemia with evidence in stent restenosis of left SFA stent placed 09/20/16 and infrapopliteal arterial insufficiency. At this time it appears feasible to recannulate the left SFA stent and perform arteriography to determine if infrapopliteal revascularization is possible. Ideally part or all of the pedal loop could be re-established. Plan: 1. Continue antibiotic as an outpatient. 2. According to the patient's preference she can return to [facility] for endovascular care or can be treated either by myself of Dr. Bunch.
--- NOTE | 2017-06-02 10:49 | PN ---
Progress Note - Progress Note Date of Service: 06/02/17 SOAP: Subjective: CC: wound HPI: 67 year old woman with wound on left lateral heel for 9 months, painful and red with fluid drainage. Had followed at [facility]. No fever, rash, or diarrhea. Pain improved with narcotics. Objective: [] Vital Signs Temp 36.6 C 06/02/17 07:13 Pulse 68 06/02/17 08:58 Resp 16 06/02/17 10:35 BP 111/89 06/02/17 07:13 Pulse Ox 96 06/02/17 08:58 Intake & Output 06/01/17 06/02/17 06/02/17 18:59 06:59 18:59 Intake Total 288 525 Balance 288 525 Intake: IV Fluids 58 30 NS (0.9%) 30 cefepime 58 IVPB 55 cefepime 55 Oral 230 440 Other: Estimated Void Medium Large # Bowel Movements 0 # Voids 3 3 Gen:awake, no distress HEENT:PERRL Heart:RRR no murmur Lungs:CTA BL Abd:+BS NTND soft Skin: no rash MSK: Left lateral heel wound w surrounding erythema Microbiology 05/30/17 12:12 Aerobic Blood Culture - Preliminary Blood Venous No Growth Day 2 Anaerobic Blood Culture - Preliminary No Growth Day 2 Blood Culture - Final 05/30/17 12:08 Aerobic Blood Culture - Final Blood Venous Corynebacterium Species Anaerobic Blood Culture - Preliminary No Growth Day 2 Blood Culture - Final 05/30/17 12:08 Skin and Soft Tissue MRSA/MSSA (PCR - Final Foot Left Mrsa Negative S.aureus Negative Gram Stain - Final Wound Culture - Preliminary Alcaligenes Species Assessment: 1. chronic non pressure related left lateral heel wound, complicated by cellulitis and wound infection 2. chronic osteomyelitis left calcaneous 3. t2 diabetes 4. obesity Plan: 1. cefepime 2 gm IV Q12hrs/flagyl 500 mg PO Q12hrs day with weekly CBC, CMP , CRP. She prefers SNF for IV antibiotics. Discussed with Noé TELLO and Dr Matta
[2017-06-02] MEDS: Acetaminophen TAB* 325 MG PO PRN (12:16)
--- NOTE | 2017-06-02 14:46 | PN ---
Subjective Date of Service: 06/02/17 Interval History: Patient's pain is steady from yesterday, responsive to pain medication. Patient denies any other acute complaints including F/C, N/V, CP, SOB, Dizziness, abdominal pain, dysuria, back pain, or other pain. Family History: Unchanged from Admission Social History: Unchanged from Admission Past Medical History: Unchanged from Admission Objective Active Medications: Acetaminophen (Tylenol Tab*) 650 mg PO Q6H PRN PRN Reason: PAIN Last Admin: 06/02/17 12:16 Dose: 650 mg Albuterol (Ventolin Hfa Inhaler*) 1 puff INH Q4H PRN PRN Reason: SOB/WHEEZING Apixaban (Eliquis*) 5 mg PO BID [facility] Last Admin: 06/02/17 08:39 Dose: 5 mg Atorvastatin Calcium (Lipitor*) 40 mg PO DAILY [facility] Last Admin: 06/02/17 08:39 Dose: 40 mg Celecoxib (Celebrex Cap*) 200 mg PO BID [facility] Last Admin: 06/02/17 08:39 Dose: 200 mg Dextrose (D50w Syringe 50 Ml*) 12.5 gm IV PUSH .FOR FS < 60 - SS PRN PRN Reason: FS < 60 Diltiazem HCl (Cardizem Cd Cap*) 240 mg PO DAILY [facility] Last Admin: 06/02/17 08:38 Dose: 240 mg Furosemide (Lasix Tab*) 40 mg PO QAM [facility] Last Admin: 06/02/17 08:39 Dose: 40 mg Furosemide (Lasix Tab*) 20 mg PO QPM [facility] Last Admin: 06/01/17 17:44 Dose: 20 mg Cefepime HCl (Maxipime 2 Gm In Dextrose Duplex (*)) 2 gm in 50 mls @ 100 mls/ hr IV Q12H [facility] Last Admin: 06/02/17 08:42 Dose: 100 mls/hr Insulin Glargine (Lantus(*)) 50 units SUBCUT BEDTIME [facility] Last Admin: 06/01/17 19:56 Dose: 50 unit Insulin Human Lispro (Humalog*) 0 units SUBCUT AC [facility] PRN Reason: Protocol Last Admin: 06/02/17 12:17 Dose: 3 units Insulin Human Lispro (Humalog*) 10 units SUBCUT AC [facility] Last Admin: 06/02/17 12:18 Dose: 10 units Metoprolol Succinate (Toprol Xl Tab*) 25 mg PO DAILY [facility] Last Admin: 06/02/17 08:39 Dose: 25 mg Metronidazole (Flagyl Tab*) 500 mg PO TID [facility] Last Admin: 06/02/17 13:58 Dose: 500 mg Oxycodone HCl (Roxycodone Tab*) 5 mg PO Q4H PRN PRN Reason: PAIN Last Admin: 06/02/17 14:33 Dose: 5 mg Vital Signs 06/01/17 06/01/17 06/01/17 15:10 16:37 18:37 Temperature 99.1 F Pulse Rate 66 Respiratory 12 16 18 Rate Blood Pressure 120/47 (mmHg) O2 Sat by Pulse 92 Oximetry 06/01/17 06/01/17 06/01/17 19:38 20:00 22:58 Temperature 97.4 F Pulse Rate 69 Respiratory 20 20 18 Rate Blood Pressure 138/65 (mmHg) O2 Sat by Pulse 93 Oximetry 06/01/17 06/02/17 06/02/17 23:14 00:00 00:43 Temperature 98.1 F Pulse Rate 66 Respiratory 16 Rate Blood Pressure 143/43 (mmHg) O2 Sat by Pulse 95 95 98 Oximetry 06/02/17 06/02/17 06/02/17 00:58 04:56 07:13 Temperature 97.7 F 97.9 F Pulse Rate 65 66 Respiratory 15 16 18 Rate Blood Pressure 137/30 111/89 (mmHg) O2 Sat by Pulse 93 94 Oximetry 06/02/17 06/02/17 06/02/17 08:00 08:40 08:58 Temperature Pulse Rate 68 Respiratory 16 18 14 Rate Blood Pressure (mmHg) O2 Sat by Pulse 96 Oximetry 06/02/17 06/02/17 06/02/17 10:35 13:59 14:21 Temperature 98.2 F 98.0 F Pulse Rate 65 64 Respiratory 16 18 16 Rate Blood Pressure 119/43 114/42 (mmHg) O2 Sat by Pulse 92 94 Oximetry 06/02/17 14:33 Temperature Pulse Rate Respiratory 16 Rate Blood Pressure (mmHg) O2 Sat by Pulse Oximetry Oxygen Devices in Use Now: None Appearance: Patient is a 67yo female who appears stated age and is sitting in the bed in [facility]. Eyes: No Scleral Icterus, PERRLA Ears/Nose/Mouth/Throat: NL Teeth, Lips, Gums, Clear Oropharnyx, Mucous Membranes Moist Neck: NL Appearance and Movements; NL JVP, Trachea Midline Respiratory: Symmetrical Chest Expansion and Respiratory Effort, Clear to Auscultation, - - Diminished breath sounds. Cardiovascular: NL Sounds; No Murmurs; No JVD, RRR, - - 1+ pitting edema in B/L lower extremities. Pulses 2+ in the bilateral radial areas. Pulses trace in Bilateral DP, PT areas Abdominal: NL Sounds; No Tenderness; No Distention, No Hepatosplenomegaly Lymphatic: No Cervical Adenopathy Skin: - - Decreased necrotic tissue from yesterday in foot wound. Neurological: Alert and Oriented x 3, NL Gait - CN II-XII intact. Result Diagrams: 06/02/17 06:32 06/02/17 06:39 Additional Lab and Data: Lab Results Abnormal Lab Results Microbiology and Other Data: Microbiology 05/30/17 12:08 Aerobic Blood Culture - Preliminary Blood Venous Anaerobic Blood Culture - Preliminary No Growth Day 2 Blood Culture - Final 05/30/17 12:12 Aerobic Blood Culture - Preliminary Blood Venous No Growth Day 2 Anaerobic Blood Culture - Preliminary No Growth Day 2 Blood Culture - Final 05/30/17 12:08 Skin and Soft Tissue MRSA/MSSA (PCR - Final Foot Left Mrsa Negative S.aureus Negative Gram Stain - Final Wound Culture - Preliminary Alcaligenes Species Assess/Plan/Problems-Billing Assessment: Patient is a 67yo female with a PMH significant for DM II with a HbA1c of 9.0, CHF, HTN, and chronic foot ulcer with previous revascularization who presents with concern for worsening pain in her foot secondary to chronic ulcer. Will consider revascularization and debridement outpatient and continue on IV antibiotics for 6 weeks per ID. - Patient Problems (1) Chronic foot ulcer with necrosis of muscle Current Visit: Yes Status: Acute Code(s): L97.503 - NON-PRS CHRONIC ULCER OTH PRT UNSP FOOT W NECROSIS OF MUSCLE SNOMED Code(s): 443285190 Comment: Chronic foot ulcer with increased CRP and WBC count. No current systemic symptoms. Used to go to wound care at [facility] but stopped due to financial concerns. Had previous revascularization and did not notice any improvement afterwards. Is willing to undergo repeat revascularization. Positive probe to bone with presumed osteomyelitis. Appreciate ID input. Continue to IV Cefepime and Oral Flagyl. Arterial ultrasound of the left leg ordered and completed per interventional radiology. Appreciate IR consult, will follow up outpatient for intervention. (2) Osteomyelitis Current Visit: Yes Status: Acute Code(s): M86.9 - OSTEOMYELITIS, UNSPECIFIED SNOMED Code(s): 39536102 Comment: Presumed, of Calcaneus. No need for MRI or bone scan per ID. Treat empirically with Cefepime and Flagyl for 6 weeks. Will set up either home infusion or NH treatment based on patient preference. Surgery Consulted for possible debridement of calcaneus, will follow up after revascularization. Gram Positive Bacilli present in aerobic blood culture. Corynebacterium, probably skin contaminant. (3) Diabetes mellitus Current Visit: Yes Status: Acute Code(s): E11.9 - TYPE 2 DIABETES MELLITUS WITHOUT COMPLICATIONS SNOMED Code(s): 38405778 Comment: Patient states that her FSBG is usally between 100 and 200 at home. HbA1c 9.0%. FSBG well controlled 100-150 today Continue Glargine 50u daily and SSI insulin with 10u scheduled AC. Will decrease if symptomatic for hypoglycemia. (4) Atrial fibrillation Current Visit: Yes Status: Acute Code(s): I48.91 - UNSPECIFIED ATRIAL FIBRILLATION SNOMED Code(s): 09114541 Comment: EKG shows NSR. Non-tachycardic on cardizem 240 and Toprol 25. Patient was very aware when she went into Afib due to SOB and chest pressure. Was cardioverted out and has had no repeat symptoms since then. On Eliquis (5) Hypertension Current Visit: Yes Status: Acute Code(s): I10 - ESSENTIAL (PRIMARY) HYPERTENSION SNOMED Code(s): 55649022 Comment: Continue cardizem, metoprolol, and lasix. Normotensive. (6) CHF (congestive heart failure) Current Visit: Yes Status: Acute Code(s): I50.9 - HEART FAILURE, UNSPECIFIED SNOMED Code(s): 72716250 Comment: Continue lasix. Unknown type, will order echo if indicated for surgery. (7) Tobacco abuse Current Visit: Yes Status: Acute Code(s): Z72.0 - TOBACCO USE SNOMED Code( s): 143328609 Comment: Patient smokes 7 cigarettes a day, not interested in quitting at this time. Counseled that this would aid in healing of foot ulcer. (8) DVT prophylaxis Current Visit: Yes Status: Acute Code(s): GKQ0832 - SNOMED Code(s): 777966797 Comment: Trinity (9) Full code status Current Visit: Yes Status: Acute Code(s): Z78.9 - OTHER SPECIFIED HEALTH STATUS SNOMED Code(s): 500762917 Status and Disposition: Patient is admitted inpatient and will be discharged when able to set up a way to get IV antibiotics.
[2017-06-02] MEDS: Furosemide TAB* 20 MG PO SCH (17:40)
--- NOTE | 2017-06-02 18:17 | CONS ---
ORTHOPEDIC CONSULT NOTE: DATE OF CONSULT: DATE OF DICTATION: 06/02/2017. REQUESTING SERVICE: Hospitalist. CONSULTING SERVICE: Orthopedics. CHIEF COMPLAINT: Left foot pain and ulcer. HISTORY OF PRESENT ILLNESS: Danielle is a 67-year-old woman with diabetes, insulin dependent; hypertension; CHF, on Xarelto; 4 lower extremity stents. She reports that she has had a left heel ulcer for about a year. Initially, it was medially and laterally; the lateral part had healed up, but the medial part has persisted. She does find it painful. Pain is described as daily, mild, burning. It is worsened with weightbearing, improved with rest. Denies associated bruising or swelling. PAST MEDICAL HISTORY: Type 2 diabetes, insulin dependent; hypertension; CHF; stents in the leg; cataract surgery; aortic valve surgery as a child. MEDICATIONS: 1. Apixaban. 2. Santyl. 3. NovoLog. 4. Lantus insulin. 5. Atorvastatin. 6. Diltiazem. 7. Furosemide. 8. Metoprolol. 9. Celecoxib. ALLERGIES: EMPAGLIFLOZIN and PENICILLIN. FAMILY HISTORY: Mother of old age and father from injuries of war. SOCIAL HISTORY: She is a 6-jpzzxidzx-jxi-day smoker. She is a long-term smoker. Minimal alcohol use. No illicit drug use. At baseline, she does use a cane for ambulation. REVIEW OF SYSTEMS: As noted in the HPI. PHYSICAL EXAM: General: Danielle is well appearing and in no apparent distress. Examination of her left lower extremity reveals there is a ulcer about the medial heel. Minimal surrounding erythema. No ecchymosis. DP and PT pulses are not palpable. Toes are warm now and apparently have good perfusion. She is able to flex and extend all of her toes. She has pain with active range of motion of the ankle. There is no exposed bone at the ulcer, but given the location likely does track right down to bone. DIAGNOSTIC STUDIES/LAB DATA: Imaging: X-rays of the left heel were independently interpreted and reviewed by me. They do not show any obvious osteomyelitis. No fractures. White blood count 12.6. ASSESSMENT AND PLAN: Danielle is a 67-year-old woman with a diabetic heel ulcer for about 1 year. Danielle and I discussed this diagnosis and prognosis at length today. The etiology is probably multifactorial from diabetic neuropathy, peripheral vascular disease, as well as mechanical pressure on the heel. We discussed possible treatment options, both nonoperative and operative. Nonoperative could include wound care and antibiotics. Additionally given her poor blood flow, I think it is reasonable to discuss a revascularization procedure to see if we could increase blood flow and the potential for healing in this area. We also discussed what surgery would entail and would likely involve partial calcanectomy to take pressure off the wound as well as debridement and possible closure of the wound. This is quite an extensive surgery and understandably so she would like to avoid this if possible. I think there is a big chance this could heal with wound care, antibiotics, assuming she does get improvement of her blood flow. In the meantime, I think it will be a good idea to get a bone scan of the area to assess the extent of infection given that she cannot get an MRI because of the stents. The heel should be offloaded from pressure at all times, so when she is bed, she either needs to have her heel hanging free or be in Prevalon boots that offload the heel. Antibiotics will be guided by the infectious disease service. We will continue to follow along and will be of assistance if needed. TIME SPENT: Over 35 minutes was spent [id number] with the patient during this consultation, over which more than half of the time was spent in counseling and coordination of care. [id number]/[facility] #: [id number] YUE
[2017-06-02] MEDS: Insulin GLARGINE(*) 1 UNITS UNIT SUBCUT SCH (20:24)
[2017-06-03 06:21] LABS: Hematocrit 29 % (35-47); Hemoglobin 9.6 g/dl (12.0-16.0); Mean Corpuscular HGB Conc 33 g/dl (31-36); Mean Corpuscular Hemoglobin 28 pg (27-31); Mean Corpuscular Volume 87 fL (80-97); Mean Platelet Volume 7 um3 (7.4-10.4); Red Blood Count 3.36 10^6/ul (4.0-5.4); Red Cell Distribution Width 16 % (10.5-15)
[2017-06-03 06:41] LABS: BUN/Creatinine Ratio 39.7 (8-20); Calcium 8.5 mg/dL (8.6-10.3); EGFR African American 101.7 (>60); Potassium 4.4 mmol/L (3.5-5.0)
[2017-06-03] MEDS: Cefepime 2 GM in Dextrose(*) 2 GM/50 ML BAG IV SCH ×2 (08:28→18:45)
[2017-06-03] MEDS: Atorvastatin* 40 MG TAB PO SCH (08:31)
[2017-06-03] MEDS: celeCOXIB CAP* 200 MG PO SCH ×2 (08:31→21:12)
[2017-06-03] MEDS: Metoprolol Succinate XL TAB* 25 MG PO SCH (08:31)
[2017-06-03] MEDS: Furosemide TAB* 40 MG PO SCH (08:31)
[2017-06-03] MEDS: Diltiazem CD CAP* 240 MG PO SCH (08:31)
[2017-06-03] MEDS: Apixaban* 5 MG TAB PO SCH ×2 (08:31→21:12)
[2017-06-03] MEDS: Insulin LISPRO* 1 UNITS UNIT SUBCUT SCH ×6 (08:32→17:54)
[2017-06-03] MEDS: metroNIDAZOLE TAB* 250 MG PO SCH ×3 (08:32→21:13)
[2017-06-03] MEDS ORDERED: Furosemide TAB* 40 MG PO ONE (14:21)
--- NOTE | 2017-06-03 16:12 | PN ---
Subjective Date of Service: 06/03/17 Interval History: Patient has no acute complaints. Pain in foot decreased and feels somewhat "numb." Patient denies any other complaints including F/C, N/V, CP, Abdominal Pain, Dysuria, or other pain. Family History: Unchanged from Admission Social History: Unchanged from Admission Past Medical History: Unchanged from Admission Objective Active Medications: Acetaminophen (Tylenol Tab*) 650 mg PO Q6H PRN PRN Reason: PAIN Last Admin: 06/02/17 12:16 Dose: 650 mg Albuterol (Ventolin Hfa Inhaler*) 1 puff INH Q4H PRN PRN Reason: SOB/WHEEZING Apixaban (Eliquis*) 5 mg PO BID [facility], [facility] Last Admin: 06/03/17 08:31 Dose: 5 mg Atorvastatin Calcium (Lipitor*) 40 mg PO DAILY [facility], [facility] Last Admin: 06/03/17 08:31 Dose: 40 mg Celecoxib (Celebrex Cap*) 200 mg PO BID [facility], [facility] Last Admin: 06/03/17 08:31 Dose: 200 mg Dextrose (D50w Syringe 50 Ml*) 12.5 gm IV PUSH .FOR FS < 60 - SS PRN PRN Reason: FS < 60 Diltiazem HCl (Cardizem Cd Cap*) 240 mg PO DAILY [facility], [facility] Last Admin: 06/03/17 08:31 Dose: 240 mg Furosemide (Lasix Tab*) 40 mg PO QAM [facility] Last Admin: 06/03/17 08:31 Dose: 40 mg Furosemide (Lasix Tab*) 20 mg PO QPM [facility] Last Admin: 06/02/17 17:40 Dose: 20 mg Cefepime HCl (Maxipime 2 Gm In Dextrose Duplex (*)) 2 gm in 50 mls @ 100 mls/ hr IV Q12H [facility], [facility] Last Admin: 06/03/17 08:28 Dose: 100 mls/hr Insulin Glargine (Lantus(*)) 50 units SUBCUT BEDTIME [facility], [facility] Last Admin: 06/02/17 20:24 Dose: 50 unit Insulin Human Lispro (Humalog*) 0 units SUBCUT AC [facility] PRN Reason: Protocol Last Admin: 06/03/17 12:29 Dose: 6 units Insulin Human Lispro (Humalog*) 10 units SUBCUT AC [facility] Last Admin: 06/03/17 12:29 Dose: 10 units Metoprolol Succinate (Toprol Xl Tab*) 25 mg PO DAILY [facility] Last Admin: 06/03/17 08:31 Dose: 25 mg Metronidazole (Flagyl Tab*) 500 mg PO TID [facility] Last Admin: 06/03/17 13:01 Dose: 500 mg Oxycodone HCl (Roxycodone Tab*) 5 mg PO Q4H PRN PRN Reason: PAIN Last Admin: 06/02/17 21:11 Dose: 5 mg Vital Signs 06/02/17 06/02/17 06/02/17 16:31 18:33 19:11 Temperature 98.2 F Pulse Rate 68 Respiratory 16 18 20 Rate Blood Pressure 135/53 (mmHg) O2 Sat by Pulse 93 Oximetry 06/02/17 06/02/17 06/02/17 20:00 21:11 23:11 Temperature Pulse Rate 69 Respiratory 16 18 18 Rate Blood Pressure (mmHg) O2 Sat by Pulse 94 Oximetry 06/02/17 06/03/17 06/03/17 23:21 00:00 04:10 Temperature 98.1 F 98.2 F Pulse Rate 69 69 Respiratory 16 20 Rate Blood Pressure 143/52 120/49 (mmHg) O2 Sat by Pulse 94 94 92 Oximetry 06/03/17 06/03/17 06/03/17 07:55 08:00 11:30 Temperature 97.8 F 98.0 F Pulse Rate 64 65 Respiratory 17 16 17 Rate Blood Pressure 120/40 138/43 (mmHg) O2 Sat by Pulse 95 97 Oximetry Oxygen Devices in Use Now: None Appearance: Patient is a 67yo female who appears stated age and is sitting in the bed in [facility]. Eyes: No Scleral Icterus, PERRLA Ears/Nose/Mouth/Throat: NL Teeth, Lips, Gums, Clear Oropharnyx, Mucous Membranes Moist Neck: NL Appearance and Movements; NL JVP, Trachea Midline Respiratory: Symmetrical Chest Expansion and Respiratory Effort, Clear to Auscultation, - - Diminished breath sounds B/L. Cardiovascular: NL Sounds; No Murmurs; No JVD, RRR Abdominal: NL Sounds; No Tenderness; No Distention, No Hepatosplenomegaly Lymphatic: No Cervical Adenopathy Extremities: - - 2+ Pitting Edema in the B/L LE. Skin: No Nodules or Sclerosis, - - Ulcer on foot consistent with previous exam except with less slough. Neurological: Alert and Oriented x 3 Result Diagrams: 06/03/17 05:44 06/03/17 05:44 Additional Lab and Data: Lab Results Abnormal Lab Results Microbiology and Other Data: Microbiology 05/30/17 12:08 Aerobic Blood Culture - Preliminary Blood Venous Anaerobic Blood Culture - Preliminary No Growth Day 2 Blood Culture - Final 05/30/17 12:12 Aerobic Blood Culture - Preliminary Blood Venous No Growth Day 2 Anaerobic Blood Culture - Preliminary No Growth Day 2 Blood Culture - Final 05/30/17 12:08 Skin and Soft Tissue MRSA/MSSA (PCR - Final Foot Left Mrsa Negative S.aureus Negative Gram Stain - Final Wound Culture - Preliminary Alcaligenes Species Assess/Plan/Problems-Billing Assessment: Patient is a 67yo female with a PMH significant for DM II with a HbA1c of 9.0, CHF, HTN, and chronic foot ulcer with previous revascularization who presents with concern for worsening pain in her foot secondary to chronic ulcer. Will consider revascularization and debridement outpatient and continue on IV antibiotics for 6 weeks per ID. - Patient Problems (1) Chronic foot ulcer with necrosis of muscle Current Visit: Yes Status: Acute Code(s): L97.503 - NON-PRS CHRONIC ULCER OTH PRT UNSP FOOT W NECROSIS OF MUSCLE SNOMED Code(s): 956518308 Comment: Chronic foot ulcer with increased CRP and WBC count. No current systemic symptoms. Used to go to wound care at [facility] but stopped due to financial concerns. Had previous revascularization and did not notice any improvement afterwards. Is willing to undergo repeat revascularization. Positive probe to bone with presumed osteomyelitis. No need for bone scan if no orthopedic intervention planned at this time. Appreciate Orthopedic input. Appreciate ID input. Continue to IV Cefepime and Oral Flagyl. Arterial ultrasound of the left leg ordered and completed per interventional radiology. Appreciate IR consult, will follow up outpatient for intervention. (2) Osteomyelitis Current Visit: Yes Status: Acute Code(s): M86.9 - OSTEOMYELITIS, UNSPECIFIED SNOMED Code(s): 61856628 Comment: Presumed, of Calcaneus. No need for MRI or bone scan per ID. Treat with Cefepime and Flagyl for 6 weeks. Home infusions set up to begin on 06/05. Wound culture grew Alcaligenes susceptible to Cefepime. Surgery Consulted for possible debridement of calcaneus, will follow up after revascularization. Appreciate input. Corynebacterium present in aerobic blood culture. Probably skin contaminant. (3) Diabetes mellitus Current Visit: Yes Status: Acute Code(s): E11.9 - TYPE 2 DIABETES MELLITUS WITHOUT COMPLICATIONS SNOMED Code(s): 60658111 Comment: Patient states that her FSBG is usally between 100 and 200 at home. HbA1c 9.0%. FSBG at 150-200 today Increase Glargine to 60u daily and SSI insulin with 10u scheduled AC. (4) Atrial fibrillation Current Visit: Yes Status: Acute Code(s): I48.91 - UNSPECIFIED ATRIAL FIBRILLATION SNOMED Code(s): 67190337 Comment: EKG shows NSR. Non-tachycardic on cardizem 240 and Toprol 25. Patient was very aware when she went into Afib due to SOB and chest pressure. Was cardioverted out and has had no repeat symptoms since then. On Eliquis (5) Hypertension Current Visit: Yes Status: Acute Code(s): I10 - ESSENTIAL (PRIMARY) HYPERTENSION SNOMED Code(s): 90938188 Comment: Continue cardizem, metoprolol, and lasix. Normotensive. (6) CHF (congestive heart failure) Current Visit: Yes Status: Acute Code(s): I50.9 - HEART FAILURE, UNSPECIFIED SNOMED Code(s): 11217565 Comment: Continue lasix. Unknown type, will order echo if indicated for surgery. Patient gained over 10 pounds this morning over last known home weight, will order Lasix 40mg PO x1 today in addition to daily lasix. Strict I+O and daily weight. (7) Tobacco abuse Current Visit: Yes Status: Acute Code(s): Z72.0 - TOBACCO USE SNOMED Code( s): 116435336 Comment: Patient smokes 7 cigarettes a day, not interested in quitting at this time. Counseled that this would aid in healing of foot ulcer. (8) DVT prophylaxis Current Visit: Yes Status: Acute Code(s): GQN7036 - SNOMED Code(s): 539428105 Comment: Trinity (9) Full code status Current Visit: Yes Status: Acute Code(s): Z78.9 - OTHER SPECIFIED HEALTH STATUS SNOMED Code(s): 961740313 Status and Disposition: Patient is admitted inpatient and will be discharged on 06/04 after second dose of cefepime. Will continue at home with self infusions.
[2017-06-03] MEDS: Furosemide TAB* 20 MG PO SCH (17:54)
[2017-06-03] MEDS ORDERED: Insulin GLARGINE(*) 1 UNITS UNIT SUBCUT SCH (21:00)
[2017-06-03] MEDS: oxyCODONE TAB* 5 MG TAB PO PRN (23:36)
[2017-06-04] MEDS: Cefepime 2 GM in Dextrose(*) 2 GM/50 ML BAG IV SCH ×2 (06:01→14:45)
[2017-06-04] MEDS: Acetaminophen TAB* 325 MG PO PRN (06:16)
[2017-06-04 06:21] LABS: Hematocrit 28 % (35-47); Hemoglobin 9.5 g/dl (12.0-16.0); Mean Corpuscular HGB Conc 33 g/dl (31-36); Mean Corpuscular Hemoglobin 29 pg (27-31); Mean Corpuscular Volume 86 fL (80-97); Mean Platelet Volume 7 um3 (7.4-10.4); Red Blood Count 3.31 10^6/ul (4.0-5.4); Red Cell Distribution Width 16 % (10.5-15); White Blood Count 10.9 10^3/ul (3.5-10.8)
[2017-06-04 06:35] LABS: BUN/Creatinine Ratio 36.5 (8-20); Calcium 8.5 mg/dL (8.6-10.3); EGFR African American 100.1 (>60); EGFR Non-African American 77.8 (>60); Potassium 4.4 mmol/L (3.5-5.0)
[2017-06-04] MEDS: Insulin LISPRO* 1 UNITS UNIT SUBCUT SCH ×4 (09:09→12:37)
[2017-06-04] MEDS: Metoprolol Succinate XL TAB* 25 MG PO SCH (09:10)
[2017-06-04] MEDS: celeCOXIB CAP* 200 MG PO SCH (09:10)
[2017-06-04] MEDS: Furosemide TAB* 40 MG PO SCH (09:11)
[2017-06-04] MEDS: Atorvastatin* 40 MG TAB PO SCH (09:11)
[2017-06-04] MEDS: metroNIDAZOLE TAB* 250 MG PO SCH ×2 (09:11→14:47)
[2017-06-04] MEDS: Diltiazem CD CAP* 240 MG PO SCH (09:11)
[2017-06-04] MEDS: Apixaban* 5 MG TAB PO SCH (09:11)
--- NOTE | 2017-06-04 09:17 | PN ---
Subjective Date of Service: 06/04/17 Interval History: Pt is feeling well. She states her foot pain is ok for the most part. She notices the most pain when she gets up to walk to the bathroom as she is having a hard time keeping the weight off her heel. She denies any diarrhea. No SOB. She is ready to go home-she got her PICC yesterday. Family History: Unchanged from Admission Social History: Unchanged from Admission Past Medical History: Unchanged from Admission Objective Active Medications: Acetaminophen (Tylenol Tab*) 650 mg PO Q6H PRN PRN Reason: PAIN Last Admin: 06/04/17 06:16 Dose: 650 mg Albuterol (Ventolin Hfa Inhaler*) 1 puff INH Q4H PRN PRN Reason: SOB/WHEEZING Apixaban (Eliquis*) 5 mg PO BID [facility] Last Admin: 06/03/17 21:12 Dose: 5 mg Atorvastatin Calcium (Lipitor*) 40 mg PO DAILY [facility] Last Admin: 06/03/17 08:31 Dose: 40 mg Celecoxib (Celebrex Cap*) 200 mg PO BID [facility] Last Admin: 06/03/17 21:12 Dose: 200 mg Dextrose (D50w Syringe 50 Ml*) 12.5 gm IV PUSH .FOR FS < 60 - SS PRN PRN Reason: FS < 60 Diltiazem HCl (Cardizem Cd Cap*) 240 mg PO DAILY [facility] Last Admin: 06/03/17 08:31 Dose: 240 mg Furosemide (Lasix Tab*) 40 mg PO QAM [facility] Last Admin: 06/03/17 08:31 Dose: 40 mg Furosemide (Lasix Tab*) 20 mg PO QPM [facility] Last Admin: 06/03/17 17:54 Dose: 20 mg Heparin Sodium (Porcine) (Heparin Flush Picc/Ml/Cvc(*)) 1 - 3 ml FLUSH 0600, 1800 JAILYN PRN Reason: Protocol Last Admin: 06/04/17 06:52 Dose: 1 ml Cefepime HCl (Maxipime 2 Gm In Dextrose Duplex (*)) 2 gm in 50 mls @ 100 mls/ hr IV Q12H [facility] Last Admin: 06/04/17 06:01 Dose: 100 mls/hr Insulin Glargine (Lantus(*)) 60 units SUBCUT BEDTIME [facility] Last Admin: 06/03/17 21:14 Dose: 60 units Insulin Human Lispro (Humalog*) 0 units SUBCUT AC [facility] PRN Reason: Protocol Last Admin: 06/03/17 17:54 Dose: 3 units Insulin Human Lispro (Humalog*) 10 units SUBCUT AC [facility] Last Admin: 06/03/17 17:54 Dose: 10 units Metoprolol Succinate (Toprol Xl Tab*) 25 mg PO DAILY [facility] Last Admin: 06/03/17 08:31 Dose: 25 mg Metronidazole (Flagyl Tab*) 500 mg PO TID [facility] Last Admin: 06/03/17 21:13 Dose: 500 mg Oxycodone HCl (Roxycodone Tab*) 5 mg PO Q4H PRN PRN Reason: PAIN Last Admin: 06/03/17 23:36 Dose: 5 mg Vital Signs 06/03/17 06/03/17 06/03/17 11:30 15:10 16:46 Temperature 98.0 F 98.2 F Pulse Rate 65 67 67 Respiratory 17 18 16 Rate Blood Pressure 138/43 125/45 (mmHg) O2 Sat by Pulse 97 96 94 Oximetry 06/03/17 06/03/17 06/03/17 19:09 20:00 23:16 Temperature 97.9 F 98.6 F Pulse Rate 69 68 Respiratory 16 18 20 Rate Blood Pressure 139/51 142/50 (mmHg) O2 Sat by Pulse 95 95 Oximetry 06/03/17 06/04/17 06/04/17 23:36 00:00 01:36 Temperature Pulse Rate Respiratory 20 16 Rate Blood Pressure (mmHg) O2 Sat by Pulse 97 Oximetry 06/04/17 06/04/17 03:28 07:33 Temperature 98.3 F 97.4 F Pulse Rate 63 61 Respiratory 16 16 Rate Blood Pressure 112/39 122/45 (mmHg) O2 Sat by Pulse 97 97 Oximetry Oxygen Devices in Use Now: None Appearance: Middle aged obese female sitting on the edge of the bed, NAD Eyes: No Scleral Icterus Ears/Nose/Mouth/Throat: Mucous Membranes Moist Respiratory: Symmetrical Chest Expansion and Respiratory Effort, Clear to Auscultation Cardiovascular: NL Sounds; No Murmurs; No JVD, RRR, No Edema Abdominal: NL Sounds; No Tenderness; No Distention Extremities: No Clubbing, Cyanosis Skin: - - will evaluate heel when nursing does dressing change later this AM Neurological: Alert and Oriented x 3 Result Diagrams: 06/04/17 06:00 06/04/17 06:00 Additional Lab and Data: Lab Results Abnormal Lab Results Microbiology and Other Data: Microbiology 05/30/17 12:08 Aerobic Blood Culture - Preliminary Blood Venous Anaerobic Blood Culture - Preliminary No Growth Day 2 Blood Culture - Final 05/30/17 12:12 Aerobic Blood Culture - Preliminary Blood Venous No Growth Day 2 Anaerobic Blood Culture - Preliminary No Growth Day 2 Blood Culture - Final 05/30/17 12:08 Skin and Soft Tissue MRSA/MSSA (PCR - Final Foot Left Mrsa Negative S.aureus Negative Gram Stain - Final Wound Culture - Preliminary Alcaligenes Species Assess/Plan/Problems-Billing Ms Henry is a 67yo female with a PMHx significant for DM II with a HbA1c of 9.0 , CHF (unspecified type), HTN, and chronic L foot ulcer with previous revascularization to the L LE who presents with concern for worsening pain in her foot secondary to worsened chronic ulcer. - Patient Problems (1) Diabetic foot ulcer with osteomyelitis Current Visit: Yes Status: Acute Code(s): E11.621 - TYPE 2 DIABETES MELLITUS WITH FOOT ULCER; E11.69 - TYPE 2 DIABETES MELLITUS WITH OTHER SPECIFIED COMPLICATION; L97.509 - NON-PRESSURE CHRONIC ULCER OTH PRT UNSP FOOT W UNSP SEVERITY; M86.9 - OSTEOMYELITIS, UNSPECIFIED SNOMED Code(s): 19621012 Comment: The patient's presumed polymicrobial diabetic foot ulcer with underlying osteomyelitis has reportedly been improving on cefepime and flagyl. Today is D#6/42 of Abx therapy. She had a PICC placed yesterday and is ready for d/c home this afternoon. She will need to be re-evaluated as an outpatient for repeat attempt at revascularization as she was found to have hemodynamically significant in-stent restenosis. Will ask the patient where she would like to go for follow up. We are treating the osteomyelitis empirically as the wound could be probed to bone therefore no MRI or bone scan was performed. Check weekly CBC, CMP, CRP. (2) Diabetes mellitus Current Visit: Yes Status: Acute Code(s): E11.9 - TYPE 2 DIABETES MELLITUS WITHOUT COMPLICATIONS SNOMED Code(s): 49476172 Comment: Blood sugars are moderately elevated will increase lantus to 65 units SQ daily and continue insulin aspart 20 units AC. Pt needs improved blood sugar control. Follow up with PCP for further adjustments. (3) Anemia Current Visit: Yes Status: Acute Code(s): D64.9 - ANEMIA, UNSPECIFIED SNOMED Code(s): 896047820 Comment: The patient is anemic but H/H stable. I suspect her anemia is secondary to CKD. Will check iron and B12 studies. (4) Atrial fibrillation Current Visit: Yes Status: Acute Code(s): I48.91 - UNSPECIFIED ATRIAL FIBRILLATION SNOMED Code(s): 03879749 Comment: Pt remains in NSR. Continue diltiazem CD 240mg daily and metoprolol XL 25mg daily. Continue eliquis. (5) CHF (congestive heart failure) Current Visit: Yes Status: Acute Code(s): I50.9 - HEART FAILURE, UNSPECIFIED SNOMED Code(s): 37750457 Comment: Unknown type. Continue daily lasix dose. Pt appears to be euvolemic. Monitor labs as outpatient. (6) Hypertension Current Visit: Yes Status: Acute Code(s): I10 - ESSENTIAL (PRIMARY) HYPERTENSION SNOMED Code(s): 79558509 Comment: BP is under good control. Continue diltiazem, metoprolol and lasix. (7) Tobacco abuse Current Visit: Yes Status: Acute Code(s): Z72.0 - TOBACCO USE SNOMED Code( s): 587187163 Comment: Encourage smoking cessation though pt is not motivated to quit. (8) DVT prophylaxis Current Visit: Yes Status: Acute Code(s): IFQ0999 - SNOMED Code(s): 412977832 Comment: Trinity (9) Full code status Current Visit: Yes Status: Acute Code(s): Z78.9 - OTHER SPECIFIED HEALTH STATUS SNOMED Code(s): 662482986 Status and Disposition: d/c home
[2017-06-04] MEDS ORDERED: Insulin GLARGINE(*) 1 UNITS UNIT SUBCUT SCH (09:25)
[2017-06-04 10:07] LABS: Ferritin 38.7 ng/mL (11-307)
--- NOTE | 2017-06-04 10:53 | PN ---
Progress Note - Progress Note Date of Service: 06/04/17 Note: I went back to evaluate the patient's wound. Looks healthy, no foul smell. Picture taken at time of d/c.
[2017-06-04] MEDS: oxyCODONE TAB* 5 MG TAB PO PRN (11:02)
[2017-06-04 15:11] VITALS: BP 125/85
--- NOTE | 2017-06-04 23:11 | DS ---
CC: Dr. Morales; Andreina Meraz NP * DISCHARGE SUMMARY: DATE OF ADMISSION: 05/30/17 DATE OF DISCHARGE: 06/04/17 PRIMARY CARE PROVIDER: Andreina Meraz NP PRINCIPAL DIAGNOSIS: Left diabetic foot ulcer with underlying osteomyelitis - likely polymicrobial. SECONDARY DIAGNOSES: 1. Type 2 diabetes - poor control. 2. Hypertension. 3. Unknown type congestive heart failure. 4. Peripheral arterial disease, status post stenting to the left lower extremity, now with in-stent restenosis. DISCHARGE MEDICATIONS: 1. Santyl apply topically daily to wound with dressing change. 2. Lantus 65 units subcutaneous daily (increased dose). 3. Insulin aspart 20 units subcutaneous a.c. 4. Metoprolol XL 25 mg p.o. daily. 5. Lasix 40 mg p.o. q.a.m., 20 mg p.o. q.p.m. 6. Eliquis 5 mg p.o. b.i.d. 7. Celebrex 200 mg p.o. b.i.d. 8. Diltiazem CD 240 mg p.o. daily. 9. Lipitor 40 mg p.o. daily. 10. Oxycodone 5 mg p.o. q.4 hours p.r.n. pain. 11. Flagyl 500 mg p.o. t.i.d. 12. Cefepime 2 g IV q.12 hours x36 more days. 13. Heparin flush per PICC protocol. 14. Ferrous sulfate 325 mg p.o. daily. 15. Tylenol 650 mg p.o. q.6 hours p.r.n. pain. HOSPITAL COURSE: Ms. Henry is a 67-year-old female who reports a history of left foot ulceration that has been present for at least 9 to 10 months. She had been attending wound clinic; however, stopped this. She noted that prior to admission the wound appeared to look infected and became very painful. This was over the week prior to admission. She also noted ankle swelling and pain. She noticed some purulent drainage. She had no fever or chills, however. The patient presented to the emergency room where she was found to have left medial heel ulceration that was foul smelling. An x-ray was performed that did not reveal any evidence of osteomyelitis. The wound was able to be probed down to bone therefore making osteomyelitis likely. The patient is a known diabetic with poor glucose control. Her most recent hemoglobin A1c was obtained on and elevated at 9%. The patient was admitted and seen in consultation by Dr. Morales who recommended placing the patient on cefepime and Flagyl for a presumed polymicrobial diabetic foot ulceration with underlying osteomyelitis. Additionally, it was recommended that surgery evaluated the patient for possible debridement. Both General Surgery and Orthopedics did not feel that this was necessary at this time. Of note, the patient did have a stent placed to her distal left SFA and balloon angioplasty of the popliteal artery in September 2016. Repeat evaluation via arterial duplex of the left lower extremity revealed tandem lesions within the mid and distal aspect of the intra- arterial stent in the SFA. The 2 lesions are felt to both be hemodynamically significant. There was slow or absent flow within the small caliber tibial vessels. It was recommended that arteriography or CT angiography be considered for further characterization of the lesions and for evaluation of distal run- off as intervention may be required. The patient was seen in consultation by Dr. Wallace who did feel that the patient would need intervention; however, it was felt that this could be performed as an outpatient. It is recommended that she follow up either with the provider that performed her initial stent procedure through [place] or by Dr. Wallace or Dr. Bunch at [facility]. The patient has been given this information and understands that she needs to follow up with either of these providers to take care of the poor blood flow to the left foot at this point. Overall, the patient has improved during the course of her hospitalization. She continues to have pain in her left foot; however, it is mostly when she puts weight on this. It is recommended that she have as little pressure on the heel as possible. A family member was able to obtain a rollator walker for her, which should help. At this point, the patient was felt to be stable for discharge home. She will be continued on cefepime 2 g IV q.12 hours for another 36 days and Flagyl 500 mg p.o. 3 times daily for another 36 days. The patient will need to have a weekly CBC, CMP, and CRP. She will need to follow up with Dr. Morales in approximately 1 month. The patient has been instructed to return to the emergency room if she has any worsened pain, redness, or signs of infection that is worse or any other concerning symptoms. FOLLOWUP CONCERNS: The patient is being discharged home today, 06/04/17. ACTIVITY LEVEL: As tolerated. DIET: Diabetic, heart healthy. CONDITION ON DISCHARGE: Stable. FOLLOWUP: The patient should follow up with Andreina Meraz in the next [address] Morales in the next 2 to 4 weeks. She will be receiving IV antibiotics via [facility] ([facility] TIME SPENT: 35 minutes were spent discharging this patient. [id number]/CPS #: [id number] MTDD
== END 2017-06-04 16:50 | disposition home health service (06) | DRG 638 ==
LOC: ED 09:42 → MED 15:06
PROVIDERS: ADMIT Internal Medicine; ATTEND Hospitalist
DX: E11.621 Type 2 diabetes mellitus with foot ulcer (principal); M86.8X7 Other osteomyelitis, ankle and foot; E11.42 Type 2 diabetes mellitus with diabetic polyneuropathy; E11.51 Type 2 diabetes mellitus with diabetic peripheral angiopathy without gangrene; I48.91 Unspecified atrial fibrillation; L03.116 Cellulitis of left lower limb; L97.423 Non-pressure chronic ulcer of left heel and midfoot with necrosis of muscle; T82.858A Stenosis of other vascular prosthetic devices, implants and grafts, initial encounter; Z68.41 Body mass index [BMI] 40.0-44.9, adult; E11.69 Type 2 diabetes mellitus with other specified complication; I11.0 Hypertensive heart disease with heart failure; I50.9 Heart failure, unspecified; F17.210 Nicotine dependence, cigarettes, uncomplicated; E78.5 Hyperlipidemia, unspecified; E66.9 Obesity, unspecified; E11.65 Type 2 diabetes mellitus with hyperglycemia; D64.9 Anemia, unspecified; Y82.8 Other medical devices associated with adverse incidents; Y92.009 Unspecified place in unspecified non-institutional (private) residence as the place of occurrence of the external cause; Z88.8 Allergy status to other drugs, medicaments and biological substances; Z98.42 Cataract extraction status, left eye; Z88.0 Allergy status to penicillin; Z98.41 Cataract extraction status, right eye; Z79.82 Long term (current) use of aspirin
CPT/HCPCS: 36415; 80048; 80053; 81003; 81015; 82607; 82728; 83036; 83540; 83550; 83605; 83880; 84484; 85025; 85610; 86140; 87040; 87070; 87077; 87186; 87205; 87640; 87641; 93005; 94760; 99406; A9270-GY; C1751; J0692; J1885; J2185; J3370

== ENCOUNTER → 2017-06-15 06:53 | Day surgery (SDC) | payer MEDICARE, MEDICAID ==
[~2017-06-15 06:53] MED LIST: Clindamycin 900 MG IVPREMIX(* 900 MG/50 ML SDV IV ONE; Heparin 2 UNITS/ML IVPREMIX* 2,000 ML IV ONE; Heparin(*) 1000 UNIT/ML 10 ML VIAL CATH LAB IV ONE; Iohexol 350 (CONTRAST) 200 ML MDV IV ONE; LORazepam TAB(*) 1 MG ONE; Lidocaine 1% INJ* 10 MG/ML 30 ML SDV ONE; Midazolam* 1 MG/ML 10 ML VIAL (10 MG) ONE; Ondansetron INJ* 2 MG/ML VIAL ONE; Ticagrelor* 90 MG TAB PO ONE; fentaNYL* 50 MCG/ML 2 ML VIAL (100 MCG VIAL) ONE; nitroGLYCERIN DRIP* 25,000 MCG/250 ML BTL ONE
--- NOTE | 2017-06-15 14:11 | PN ---
Progress Note - Progress Note Date of Service: 06/15/17 SOAP: Subjective: Mild low back pain from laying flat. No abdominal, groin or left leg pain. No nausea. Objective: 130/60, 58, 93%(ra) NAD, AAO x 3 Abd is soft, NT Right groin is soft, nontender, non-ecchymotic Mild serous drainage on dressing left foot is warm and pink possible palpable left DPA pulse? +Doppler NM is grossly intact at BLE Assessment: 67 YOF status post pelvic and LLE arteriogram, revascularization of mostly occluded left SFA (including 2 mostly occluded stents) and balloon angioplasty of the entire left SFA with 6mm paclitaxel coated ImPact balloons. Plan: 1. Brilinta 90 mg PO BID x 6 months. 2. Patient strongly encouraged to stop smoking. 3. 2 week US follow up of left leg 4. Possible further intervention to revascularize left MARY if SFA remains patient. If not, surgical consideration. 5. Abx therapy per ID (Dr. Morales) 6. Patient encouraged to engage [facility] to left foot.
--- NOTE | 2017-06-15 20:35 | RAD ---
CPT II Codes: 6045F Procedure(s) performed: 1. Right iliac arteriogram. 2. Pelvic arteriogram 3. Left lower extremity arteriogram. 4. Revascularization of occluded left superficial femoral artery including 2 mostly occluded left superficial femoral artery stents. 5. Serial balloon angioplasty of the left superficial femoral artery. Date of service: June 15, 2017 Indication for procedure: Critical limb ischemia with worsening left heel wound. Comparison: Left lower extremity arterial duplex ultrasound May 31, 2017 Contrast: 140 mL Omnipaque 300 Fluoroscopy Time: 30.4 minutes Vessels Accessed: Percutaneous access was obtained with ultrasound guidance in the right common femoral artery in the retrograde direction towards the heart. Catheter arteriography, with the catheter tip located within the lumen of the following arteries, was performed at the right external iliac artery, aorta, left common iliac artery, right common femoral artery, right superficial femoral artery and popliteal artery Anesthesia: Conscious sedation with IV Fentanyl and Versed as well as local 1% lidocaine injected locally at the arteriotomy site. Conscious sedation time: Timeout: 9:15 hours Case end: 11:38 hours Total conscious sedation time: 2 hours and 23 minutes Additional medications: * IV heparin 9000 Units to achieve a goal ACT of 250-300. * The patient received 1 mg of p.o. Ativan prior to the onset of the procedure. * The patient received Brilinta 90 mg p.o. prior to the procedure. * Zofran 8 mg IV. PROCEDURE NOTE AND INTRAPROCEDURAL IMAGING FINDINGS: Immediately prior to the procedure the patient signed consent after thoroughly discussing all risks, benefits and alternative therapies. The patient was positioned on the fluoroscopy table in the supine position and the bilateral groins were shaved, prepped and the patient was draped in standard sterile fashion. The left dorsalis pedis artery was also prepped and draped. Using fluoroscopic imaging the location of the right common femoral head was marked externally with a skin marker on the patient's groin. Utilizing sonographic guidance and palpation, the right common femoral artery was cannulated overlying the femoral head with a 21-gauge needle. An ultrasound image was saved. A microwire was slowly and smoothly advanced into the common femoral artery under fluoroscopic imaging. No buckling of the wire was visualized to indicate dissection. With the wire securing percutaneous arterial access, the needle was removed and a 5-Bangladeshi sheath was advanced under fluoroscopic control into the common femoral artery retrograde into the right external iliac artery securing access. The microwire was removed and exchanged for a 0.035 inch Bentson wire. Over the Bentson wire a 5-Bangladeshi SideArm sheath was advanced until the tip was in the right external iliac artery. Through the side arm of the access sheath arteriography of the right iliac arteries and common femoral artery demonstrated an appropriate puncture of the common femoral artery above the bifurcation and below the inferior epigastric artery. Over the Bentson wire a flush catheter was advanced to the aorta and contrast aortogram was performed to provide detailed characterization of the aortoiliac arterial system. Relevant to the patient's current presentation is high-grade stenosis at the proximal most right superficial femoral artery. The wire was reinserted and utilizing a reverse curve 5-Bangladeshi catheter and hydrophilic 0.035 inch wire, access was obtained to the contralateral left iliac arterial system. Contrast arteriography with the tip of the catheter in the left common iliac artery was performed to better delineate the course of the left iliac arteries. Utilizing a combination of a hydrophilic wire and curved tip catheter access was obtained into the left femoral arterial system. The catheter followed by the short 7-Bangladeshi sheath were removed and replaced with a 55 cm, 6-Bangladeshi Ansell sheath. This was advanced under fluoroscopic control until the tip was in the distal left external iliac artery. Contrast arteriogram performed from this point further confirmed high-grade stenosis at the origin of the left superficial femoral artery and abrupt occlusion more distally at the more superior of the 2 superficial femoral arterial stents. Contrast arteriography performed or distally in the superficial femoral artery demonstrated high-grade stenosis and/or complete occlusion through both the superior and inferior superficial femoral artery stents with the distal most left superficial femoral artery filling by reconstituted flow into the popliteal artery and then with in-line flow into the tibioperoneal trunk and peroneal artery. The left anterior tibial artery exhibits stenosis at its origin but is patent at its proximal portion. Utilizing a combination of a hydrophilic 0.035 inch wire and a curved tip 5-Bangladeshi catheter wire cannulization was achieved throughout the length of the left superficial femoral artery with the wire terminating in the superior peroneal artery. Over the wire balloon dilatation was performed throughout the length of the left superficial femoral artery extending into the popliteal artery with a 5 mm x 150 mm Passeo-35 balloon. At each level of inflation the balloon remained inflated for minimum of 2 minutes to address arterial spasm. After this the 5-Bangladeshi catheter could be advanced to the popliteal artery allowing complete arteriography of the tibial arteries. The peroneal artery is the only artery providing direct in-line flow to the level of the ankle. The proximal left anterior tibial artery is patent but becomes occluded. The distal anterior tibial artery and dorsalis pedis artery fill by collateralized flow. There is essentially no filling in the left posterior tibial artery. Indication chronic [employer]SEM[employer]ER occlusion is seen by robust hypertrophied collateralization provided by geniculate arteries as well as branch arteries of the peroneal. Arteriography performed from the left common femoral artery demonstrates improved patency of the left superficial femoral artery but with persistent stenoses. The 6-Bangladeshi sheath was exchanged for a long 7-Bangladeshi 55 cm and cell sheath to accommodate drug coated balloon's. Balloon angioplasty was then performed along the entire length of the superior popliteal artery and superficial femoral artery utilizing (three )6 mm by 120 mm paclitaxel coated InPact balloons. During each inflation the balloon remained inflated for minimum of 3 minutes to ensure adequate drug delivery. Arteriography performed through the long 7-Bangladeshi sheath demonstrated a small dissection at the proximal superficial femoral artery. After balloon dilatation was performed at this site with a 6 mm x 120 mm InPact balloon the dissection was no longer visible and brisk arterial flow was demonstrated from the bifurcation of the femoral arteries through the left superficial femoral artery, including both stents, into the tibial arteries. Prior to removing the long 7-Bangladeshi sheath arteriography was performed with the tip in the right common iliac artery demonstrating patency of the distal aorta and iliac arteries. Over the wire the access sheath was exchanged for a new 7-Bangladeshi, 11 cm length access sheath intended specifically for percutaneous arterial closure. After an appropriate resterilization of the arteriotomy and exchange for new sterile gloves, a Minx closure device was deployed at the common femoral arteriotomy and pressure held for approximately 15 minutes. There were no signs of bleeding at the percutaneous arterial access site and the site was dressed with sterile gauze and Tegaderm. The patient tolerated the procedure well and was transferred to angiography holding bay for standard post procedural observation. SUMMARY OF PROCEDURE, IMAGING FINDINGS AND INTERVENTIONS PERFORMED: 1. Diagnostic studies performed: * Arterial access was obtained at the right common femoral artery in the retrograde direction (i.e. towards the heart) with ultrasound guidance. A sonographic image was recorded. * Diagnostic catheter angiography (necessary to perform the appropriate interventions) was performed with the catheter tip in the right external iliac artery, right common iliac artery, aorta, left common iliac artery, left external iliac artery, left common femoral artery, left superficial femoral artery and left popliteal artery.. * Catheter arteriography was performed of the lower abdominal aorta and bilateral iliac arterial system as far as the bilateral femoral bifurcation as well as arteriography of the entire left lower extremity from the common femoral artery to the proximal pedal branches. 2. Interpretation of diagnostic studies performed: * High-grade stenosis at the proximal most portion of the left superficial femoral artery. * Series of stenoses and complete occlusions of the left superficial femoral artery including the 2 previously placed left superficial femoral artery stents. * The left popliteal artery fills by collateralized flow provided by branches of the femoral profundus. * The left anterior tibial artery becomes occluded at the proximal left lower leg with collateralized filling more distally of the left MARY and dorsalis pedis artery. * The peroneal artery provides in-line flow to the ankle. * The posterior tibial artery is essentially nonexistent. * Arteriography performed for the purpose of deploying a percutaneous arterial closure device demonstrates adequately patent right external iliac artery, common femoral artery and proximal superficial femoral artery and femoral profundus. 3. Surgical interventions performed: * Catheter wire revascularization of the occluded left superficial femoral artery. * Balloon angioplasty of the left superficial femoral and popliteal arteries first with a 5 mm x 150 mm Passeo-35 balloon followed by (three) 6 mm x 120 mm paclitaxel coated InPact balloons * Closure of the right common femoral artery was achieved with a Minx closure device followed by 15 minutes of gentle manual pressure. 4. Interpretation of interventions performed: * Final arteriography demonstrated improved brisk arterial flow throughout the entire length of the left superficial femoral and popliteal arteries into the proximal left tibial arteries.. Plan: 1. Aspirin 81 mg p.o. daily for life. 2. Brilinta 90 mg PO b.i.d. daily x 6 months. 3. Clinical and imaging follow-up will include complex ultrasound examination in approximately 2 weeks to determine patency of left superficial femoral artery and left superficial femoral artery stents. 4. The patient experienced nausea and neck and back pain during the procedure that prevented time to attempt to revascularize the left anterior tibial artery. Should the left SFA remains patent on follow-up imaging the patient will be offered the chance to have left MARY revascularization. This also depends on the status of the patient's left heel wound.
== END | disposition home or self-care (01) ==
LOC: CHICATH 06:53
PROVIDERS: ATTEND Radiology Diagnostic Radiology
DX: I70.262 Atherosclerosis of native arteries of extremities with gangrene, left leg (principal); E11.9 Type 2 diabetes mellitus without complications; Z79.4 Long term (current) use of insulin; I10 Essential (primary) hypertension; F17.210 Nicotine dependence, cigarettes, uncomplicated
CPT/HCPCS: 75625; 76937; 99156; 99157; A9270-GY; C1725; C1760; C1769; C1887; C1894; C2623; J0696; J1644; J2001; J2250; J2405; J3010

== ENCOUNTER 2017-07-09 00:51 | Inpatient (IN) | payer MEDICARE, MEDICAID ==
--- OUTSIDE RECORDS SUMMARY | 2017-07-09 01:01 | XMS REPORT ---
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 [address] [place] [address] [facility] Expires: 2017 Policy Number: [id number] Medicare Danielle Henry PayID: [id number] [address] [facility] [place] [address] Medigap Part B Policy Number: [id number] Medicaid Danielle Henry Group Name: 1 1 [address] PayID: [id number] [place] [address] Problems Description No Information Social History Type Date Description Comments Smoking Patient is a current smoker, smokes every day smoked x 56 years Allergies, Adverse Reactions, Alerts Date Description Reaction Status Severity Comments 07/05/2017 Penicillin Anaphylaxis active 07/05/2017 Sitagliptin abdominal pain active 07/05/2017 Dapagliflozin abdominal pains active Medications Medication Date Status Form Strength Qnty SIG Indications Ordering Provider Ceftriaxone 06/14/ Active Solution 2gm iv every 24 Brian 2016 Rec hours x 36 D. days through [place] Infusion Plavix 10/30/ Active Tablets 75mg 90tab start plavix Candelario Gaona 2016 s 75 mg by Politi, mouth daily M.D. one week before endovascular surgery with dr. beebe. (pt reports she is not taking this) Lantus 00// Active Solution 100Unit/M 65 units Unknown 0000 L daily Insulin 00/00/ Active Solution 100Unit/M 20 units Unknown 0000 Cartridge L subcu ac Metoprolol / Active Tablets ER 25mg 1 by mouth Unknown Succinate ER 0000 24HR every day Lasix / Active Tablets 20mg 2 by mouth in Unknown 0000 the Am, 1 by mouth in the PM Eliquis / Active Tablets 5mg 1 by mouth Unknown 0000 twice a day Celebrex / Active Capsules 200mg 1 by mouth Unknown 0000 twice daily Diltiazem CD / Active Caps ER 240mg 1 by mouth Unknown 0000 24HR every day Lipitor / Active Tablets 40mg 1 by mouth at Unknown 0000 bedtime Flagyl / Active Tablets 500mg 1 tab by Brian 0000 mouth 2 times D. daily Jovany Owens Tylenol 8 / Active Tablets ER 650mg 1 by mouth Unknown Hour 0000 every 6 hrs as needed for pain Brilinta / Active Tablets 90mg 1 tab by Unknown 0000 mouth twice a day Oxycodone HCL / Hx Capsules 5mg 1 tab by Unknown 0000 - mouth every 4 07/04/ hours as 2017 needed pain Ferrous / Hx Tablets 325mg 1 by mouth Unknown Sulfate 0000 - every day 2016 Medications Administered in Office Medication Date Status Form Strength Qnty SIG Indications Ordering Provider Influenza,Unsp Administered Injection Unknown ecified 017 Immunizations CPT Code Status Date Vaccine Lot # [id number] Given 04/11/2017 Zoster (Zostavax) Vital Signs Date Vital Result Comment 07/05/2017 Height 62 inches 5'2" Weight 247.00 lb Heart Rate 72 /min BP Systolic Sitting 118 mmHg BP Diastolic Sitting 54 mmHg Respiratory Rate 14 /min Body Temperature 97.0 F BMI (Body Mass Index) 45.2 kg/m2 Results Description No Information Procedures Date CPT Code Description Status 06/15/2017 68350 Moderate Sedation Services; Same Phys Each Additional Completed 15 Mins 06/15/2017 51945 Moderate Sedation Services; Same Phys Intl 15 Mins; PT Completed >=5 Years 06/15/2017 20692 Ultrasound Guidance For Vascular Access Completed 06/15/2017 19004 Angio Extremity, Bilateral Completed 06/15/2017 25265 Revascularization,Endovascular,Transluminal Angioplasty Completed Encounters Type Date Location Provider CPT E/M Dx Office Visit 06/04/2017 [facility], Rosalinda Hernandez, 03832 E11.621 1:27p Hospitalists Jovany L97.429 I50.9 I10 Office Visit 06/03/2017 1:26p [facility], Noé Phillip, 67885 E11.621 Hospitalists ELISHA L97.429 I50.9 I10 Office Visit 06/02/2017 8:59a [facility] Brian Owens, 53129 E11.69 Infectious Diseases Jovany M86.672 E11.621 L97.429 L03.032 Office Visit 06/02/2017 8:06a [facility] [place] [address] E11.621 C.M.Tamera L97.329 Office Visit 06/02/2017 1:25p [facility], Noé Phlilip, 20279 E11.621 Hospitalists ELISHA L97.429 I50.9 I10 Office Visit 06/02/2017 10:47a [facility] Vascular Medicine Candelario Beebe, 23137 E11.621 Of Isaac Manzo L97.429 Office Visit 06/01/2017 7:00a [facility] Conner [facility], [address]608 I70.262 Of [facility] Office Visit 06/01/2017 8:44a [facility] Brian Owens, 64477 E11.622 Infectious Diseases Jovany L97.329 L97.429 E11.40 E11.51 Office Visit 06/01/2017 1:23p [facility], Noé Phillip, 00188 E11.621 Hospitalists ELISHA L97.429 I50.9 I10 Office Visit 05/31/2017 1:22p [facility] Noé Phillip, 95297 E11.621 Hospitalists ELISHA L97.429 I50.9 I10 Office Visit 05/30/2017 1:21p [facility] Nicole Deng N.[facility]. [address]2669 E11.621 Hospitalists L97.429 I50.9 I10 Office Visit 05/30/2017 7:00a [facility] La Rosa, [address]3593 E11.621 Of [facility] L97.429 Plan of Care Future Appointment(s):07/26/2017 11:10 am - Brian Owens M.D. at [facility]/06/2017 1:00 pm - Candelario Beebe M.D. at [facility] Vascular Medicine [facility]07/05/2017 - Brian Owens M.D.M86.672 Other chronic osteomyelitis, left ankle and footComments:IV abx until 07/16 then DC PICC , tolerating well, not missing doses. After thatZ79.2 longterm (current) use of antibioticsFollow up:3-4 nntepE52.9 Peripheral vascular disease, olmscyzryqyS64.621 Type 2 diabetes mellitus with foot ulcerFollow up:lisa appt chang Arreaga who [place] [facility] [place]
[2017-07-09] MEDS ORDERED: Furosemide IV* 10 MG/ML VIAL (40 MG) IV ONE ×2 (01:17→03:26)
[2017-07-09] MEDS ORDERED: Aspirin Low Dose CHEW TAB* 81 MG PO ONE (01:17)
[2017-07-09 02:18] LABS: Hematocrit 25 % (35-47); Hemoglobin 8.1 g/dl (12.0-16.0); Mean Corpuscular HGB Conc 33 g/dl (31-36); Mean Corpuscular Hemoglobin 28 pg (27-31); Mean Corpuscular Volume 86 fL (80-97); Mean Platelet Volume 7 um3 (7.4-10.4); Red Blood Count 2.88 10^6/ul (4.0-5.4); Red Cell Distribution Width 19 % (10.5-15); White Blood Count 14.3 10^3/ul (3.5-10.8)
[2017-07-09 02:31] LABS: Albumin 2.8 g/dL (3.2-5.2); BUN/Creatinine Ratio 46.2 (8-20); Calcium 8.2 mg/dL (8.6-10.3); EGFR African American 150.4 (>60); EGFR Non-African American 116.9 (>60); Globulin 2.8 g/dL (2-4); Magnesium 2.4 mg/dL (1.9-2.7); Potassium 3.6 mmol/L (3.5-5.0); Total Bilirubin 0.3 mg/dL (0.2-1.0); Total Protein 5.6 g/dL (6.4-8.9)
[2017-07-09 02:33] LABS: Troponin I 0.01 ng/mL (<0.04)
--- NOTE | 2017-07-09 03:08 | ED ---
Roney Delgado Thomas, scribed for Saroj Damon MD on 07/09/17 at 0130 . Shortness of Breath - HPI Summary HPI Summary: The pt is a 67 y/o F with a Hx of presenting to the ED c/o chest heaviness and SOB that has worsened over the last month but especially in the last few days. The SOB is aggravated by lying flat and is alleviated by nothing. She is not on home oxygen. Pt additionally c/o diarrhea (chronic). Pt denies N/V, diaphoresis. She is on antibiotics for a wound on her left foot. She is on Lasix 20mg BID. - History of Current Complaint Chief Complaint: EDShortnessOfBreath Time Seen by Provider: 07/09/17 01:11 Hx Obtained From: Patient Onset/Duration: Lasting Weeks - onset, Still Present Timing: Constant Dyspnea At: Rest Aggrevating Factors: Recumbent Position Alleviating Factors: Nothing Associated Signs & Symptoms: Chest Pain Unrelated to Cough Related History: Obesity - Allergy/Home Medications Allergies/Adverse Reactions: Allergies Allergy/AdvReac Type Severity Reaction Status Date / Time Empagliflozin Allergy Stomach Verified 05/30/17 09:45 [From Jardiance] Cramps Penicillins Allergy Vomiting Verified 05/30/17 09:45 PMH/Surg Hx/FS Hx/Imm Hx Previously Healthy: No Endocrine/Hematology History: Reports: Hx Diabetes Cardiovascular History: Reports: Hx Angioplasty - 2017, Hx Congestive Heart Failure, Hx Hypercholesterolemia, Hx Hypertension, Hx Peripheral Vascular Disease Respiratory History: Reports: Hx Chronic Obstructive Pulmonary Disease (COPD) Sensory History: Reports: Hx Cataracts, Hx Contacts or Glasses Denies: Hx Legally Blind, Hx Deafness, Hx Hearing Aid Opthamlomology History: Reports: Hx Cataracts, Hx Contacts or Glasses Denies: Hx Legally Blind - Surgical History Surgery Procedure, Year, and Place: angioplasty 2017, cataracts Infectious Disease History: No Infectious Disease History: Denies: Traveled Outside the [place] in Last 30 Days - Family History Known Family History: Negative: Seizure Disorder - Social History Alcohol Use: None Alcohol Amount: holidays Hx Substance Use: No Substance Use Type: Reports: None Hx Tobacco Use: Yes Smoking Status (MU): Light Every Day Tobacco Smoker Type: Cigarettes Length of Time of Smoking/Using Tobacco: 57 years Have You Smoked in the Last Year: Yes Review of Systems Negative: Skin Diaphoresis Positive: Chest Pain Positive: Shortness Of Breath Positive: Diarrhea - chronic. Negative: Vomiting, Nausea All Other Systems Reviewed And Are Negative: Yes Physical Exam - Summary Physical Exam Summary: VITAL SIGNS: Reviewed. GENERAL: Patient is a well-developed and nourished female who is lying comfortable in the stretcher. Patient is in mild respiratory distress. HEAD AND FACE: No signs of trauma. No ecchymosis, hematomas or skull depressions. No sinus tenderness. EYES: PERRLA, EOMI x 2, No injected conjunctiva, no nystagmus. EARS: Hearing grossly intact. Ear canals and tympanic membranes are within normal limits. MOUTH: Oropharynx within normal limits. NECK: Supple, trachea is midline, no adenopathy, no JVD, no carotid bruit, no c- spine tenderness, neck with full ROM. CHEST: Symmetric, no tenderness at palpation LUNGS: Mild respiratory distress. There are rales bialterally up to the middle lung larios. CVS: Regular rate and rhythm, S1 and S2 present, no murmurs or gallops appreciated. ABDOMEN: Soft, non-tender. No signs of distention. No rebound no guarding, and no masses palpated. Bowel sounds are normal. EXTREMITIES: There is bilateral pitting edema 1+. She has a chronic ulcer over her left foot that is wrapped. There is a PICC line on the right upper arm. FROM in all major joints, no cyanosis or clubbing. NEURO: Alert and oriented x 3. No acute neurological deficits. Speech is normal and follows commands. SKIN: Dry and warm Triage Information Reviewed: Yes Vital Signs On Initial Exam: Initial Vitals Temp Pulse Resp BP Pulse Ox 97.9 F 83 14 161/54 97 07/09/17 01:04 07/09/17 01:04 07/09/17 01:04 07/09/17 01:04 07/09/17 01:04 Vital Signs Reviewed: Yes Diagnostics - Vital Signs Vital Signs Temp Pulse Resp BP Pulse Ox 07/09/17 01:04 97.9 F 83 14 161/54 97 - Laboratory Result Diagrams: 07/09/17 02:00 07/09/17 02:00 Lab Statement: Any lab studies that have been ordered have been reviewed, and results considered in the medical decision making process. - Radiology CXR Xray Interpretation: Positive (See Comments) - CHF Radiology Interpretation Completed By: ED Physician - EKG 01:15 Cardiac Rate: NL EKG Rhythm: Sinus Rhythm - at 82 BPM EKG Interpretation: Normal axis. Normal intervals. No ischemic change. Course/Dx - Course Assessment/Plan: The pt is a 67 y/o F with a Hx of presenting to the ED c/o chest heaviness and SOB that has worsened over the last month but especially in the last few days. The SOB is aggravated by lying flat and is alleviated by nothing. She is not on home oxygen. Pt additionally c/o diarrhea (chronic). Pt denies N/V, diaphoresis. She is on antibiotics for a wound on her left foot. She is on Lasix 20mg BID. In the ED course the patient was given ASA and Lasix. EKG, bloodwork, and CXR were obtained. The patient is diagnosed with CHF. [place] [facility] [place]. - Diagnoses Provider Diagnoses: CHF (congestive heart failure) - Physician Notifications Discussed Care of Patient With: Daisy Oh Time Discussed With Above Provider: 02:45 Instructed by Provider To: Admit As Inpatient Discharge - Discharge Plan Condition: Fair Disposition: ADMITTED TO [facility] Referrals: Andreina Meraz, [employer]PENTER LABOR SUPERVISOR [Primary Care Provider] - The documentation as recorded by the Roney segura Thomas accurately reflects the service I personally performed and the decisions made by , Saroj Damon MD.
[2017-07-09] MEDS ORDERED: Albuterol 2.5 MG/3 ML NEB.SOL* (0.083%) INH ONE (03:26)
[2017-07-09] MEDS ORDERED: Ondansetron INJ* 2 MG/ML VIAL IV PRN (03:27)
[2017-07-09] MEDS ORDERED: Al Hydrox/Mg Hydrox/Simet LIQ* 30 ML UDC PO PRN (03:27)
[2017-07-09] MEDS ORDERED: Acetaminophen TAB* 325 MG PO PRN (03:27)
[2017-07-09] MEDS ORDERED: Nitroglycerin 2% OINT* 1 GM PAK TOPICAL ONE (03:28)
[2017-07-09] MEDS ORDERED: Morphine INJ* 2 MG/ML 1 ML SYRINGE (TWO MG - NEW SYRINGE VERSION) IV PRN (03:29)
[2017-07-09] MEDS ORDERED: Dextrose 50% Syringe 50 ML* 25 GM/50 ML SYRINGE IV PUSH PRN ×2 (03:33)
[2017-07-09 05:52] LABS: Urine Bacteria Absent (Absent); Urine Bilirubin Negative (Negative); Urine Glucose 2+(150 mg/dL) (Negative); Urine Nitrite Negative (Negative)
--- NOTE | 2017-07-09 08:53 | PN ---
Subjective Date of Service: 07/09/17 Interval History: Still some SOB. Gained about 15 lbs recently at home, weighs herself. Objective Active Medications: Acetaminophen (Tylenol Tab*) 650 mg PO Q4H PRN PRN Reason: FEVER/PAIN Al Hydrox/Mg Hydrox/Simethicone (Maalox Plus*) 30 ml PO Q6H PRN PRN Reason: INDIGESTION Apixaban (Eliquis*) 5 mg PO BID [facility] Atorvastatin Calcium (Lipitor*) 40 mg PO 1700 [facility] Dextrose (D50w Syringe 50 Ml*) 12.5 gm IV PUSH .FOR FS < 60 - SS PRN PRN Reason: FS < 60 Diltiazem HCl (Cardizem Cd Cap*) 240 mg PO DAILY [facility] Ceftriaxone Sodium 2 gm/ (Sodium Chloride) 100 mls @ 200 mls/hr IVPB Q24H [facility] Insulin Glargine (Lantus(*)) 65 units SUBCUT BEDTIME [facility] Insulin Human Lispro (Humalog*) 0 units SUBCUT AC JAIL[facility] PRN Reason: Protocol Insulin Human Lispro (Humalog*) 0 units SUBCUT AC JAILYN PRN Reason: Protocol Metoprolol Succinate (Toprol Xl Tab*) 25 mg PO DAILY [facility] Metronidazole (Flagyl Tab*) 500 mg PO TID [facility] Morphine Sulfate (Morphine Inj (Syringe)*) 2 mg IV Q4H PRN PRN Reason: PAIN - MILD Ondansetron HCl (Zofran Inj*) 4 mg IV Q4H PRN PRN Reason: NAUSEA/VOMITING Ticagrelor (Brilinta*) 90 mg PO BID [facility] Torsemide (Demadex*) 60 mg PO DAILY [facility] Vital Signs 07/09/17 07/09/17 07/09/17 04:00 04:01 04:30 Temperature Pulse Rate 72 72 73 Respiratory 20 20 21 Rate Blood Pressure 120/48 117/46 (mmHg) O2 Sat by Pulse 98 100 98 Oximetry 07/09/17 07/09/17 04:58 05:30 Temperature 98 F Pulse Rate 73 Respiratory 21 21 Rate Blood Pressure 117/46 (mmHg) O2 Sat by Pulse 99 Oximetry Oxygen Devices in Use Now: Nasal Cannula Appearance: Alert, sitting on the edge of her bed, somewhat tachypneic from going to the BR. In good spirits. Eyes: No Scleral Icterus Respiratory: Symmetrical Chest Expansion and Respiratory Effort, Clear to Auscultation, Clear to Percussion Cardiovascular: NL Sounds; No Murmurs; No JVD, RRR, No Edema, - Extremities: No Clubbing, Cyanosis, - - 1-2+ edema BL L heel bandaged Skin: No Rash or Ulcers, No Nodules or Sclerosis, - Neurological: Alert and Oriented x 3, NL Sensation Result Diagrams: 07/09/17 02:00 07/09/17 02:00 Assess/Plan/Problems-Billing Assessment: - Patient Problems (1) CHF (congestive heart failure) Current Visit: No Status: Acute Code(s): I50.9 - HEART FAILURE, UNSPECIFIED SNOMED Code(s): 03945706 Comment: Unknown type. Echo 07/10. Oral torsemide 60 mg 07/09. PVR by bladder scan ordered. (2) Atrial fibrillation Current Visit: No Status: Acute Code(s): I48.91 - UNSPECIFIED ATRIAL FIBRILLATION SNOMED Code(s): 38447394 Comment: Pt remains in NSR. Continue diltiazem, metoprolol XL, apixaban. (3) Diabetes mellitus Current Visit: No Status: Acute Code(s): E11.9 - TYPE 2 DIABETES MELLITUS WITHOUT COMPLICATIONS SNOMED Code(s): 92966184 Comment: Continue Lantus and Lispro. Pt reports poor control at home. Pt needs better diet, better insulin directions. (4) Diabetic foot ulcer with osteomyelitis Current Visit: No Status: Acute Code(s): E11.621 - TYPE 2 DIABETES MELLITUS WITH FOOT ULCER; E11.69 - TYPE 2 DIABETES MELLITUS WITH OTHER SPECIFIED COMPLICATION; L97.509 - NON-PRESSURE CHRONIC ULCER OTH PRT UNSP FOOT W UNSP SEVERITY; M86.9 - OSTEOMYELITIS, UNSPECIFIED SNOMED Code(s): 34033422 Comment: Continue IV ceftriaxone. Pt reports severe diarrhea with cefepime, states Dr. Morales changed the antibiotic. Continue outpt tx plan. (5) Tobacco abuse Current Visit: No Status: Acute Code(s): Z72.0 - TOBACCO USE SNOMED Code(s ): 820112637 Comment: Pt advised to quit smoking and avoid second hand smoke. She states she smoke 1 cigarette per day. (6) Morbid obesity Current Visit: Yes Status: Acute Code(s): E66.01 - MORBID (SEVERE) OBESITY DUE TO EXCESS CALORIES SNOMED Code(s): 922945568 Comment: BMI 44.6. (7) PVD (peripheral vascular disease) Current Visit: Yes Status: Acute Code(s): I73.9 - PERIPHERAL VASCULAR DISEASE, UNSPECIFIED SNOMED Code(s): 726562726 Comment: Stents 06/15/17. Discussed with Dr. Wallace. No ASA while on ticagrelor and apixaban.
[2017-07-09] MEDS ORDERED: Torsemide TAB* 20 MG PO SCH (09:00)
[2017-07-09] MEDS ORDERED: cefTRIAXone(*) 2 GM in NS 0.9% 100 ML* 100 ML IVPB SCH (09:00)
[2017-07-09] MEDS ORDERED: metroNIDAZOLE TAB* 250 MG PO SCH (09:00)
[2017-07-09] MEDS ORDERED: Cefepime 2 GM in Dextrose(*) 2 GM/50 ML BAG IV SCH (09:00)
--- NOTE | 2017-07-09 09:36 | RAD ---
INDICATION: 1 week of shortness of breath, 30 pound weight gain and lower extremity pitting edema COMPARISON: None. TECHNIQUE: Single AP portable view of the chest was obtained. FINDINGS: Image quality is compromised due to the relative inferiority of a portable chest x-ray. The heart is mildly enlarged. The pulmonary vasculature is indistinct and engorged. There is indistinct density overlying the bilateral lungs. The left hemidiaphragm is obscured. There is bibasilar costophrenic angle blunting. Visualized bones are normal for the patient's age. IMPRESSION: The chest x-ray appearance in light of the provided clinical history is most consistent with cardiogenic pulmonary edema. Pneumonia at the left lung base is not completely excluded.
[2017-07-09] MEDS: Metoprolol Succinate XL TAB* 25 MG PO SCH (09:41)
[2017-07-09] MEDS: Diltiazem CD CAP* 240 MG PO SCH (09:41)
[2017-07-09] MEDS: Insulin LISPRO* 1 UNITS UNIT SUBCUT SCH ×6 (09:42→17:33)
[2017-07-09] MEDS: Ticagrelor* 90 MG TAB PO SCH ×2 (09:42→21:25)
[2017-07-09] MEDS: metroNIDAZOLE TAB* 250 MG PO SCH ×3 (09:42→21:25)
[2017-07-09] MEDS: Apixaban* 5 MG TAB PO SCH ×2 (09:42→21:25)
[2017-07-09] MEDS: Ferrous Sulfate TAB* 325 MG PO SCH (10:20)
--- NOTE | 2017-07-09 10:27 | HP ---
CC: Andreina Meraz NP HISTORY AND PHYSICAL: DATE OF ADMISSION: 07/09/17 TIME OF EVALUATION: 0300 PRIMARY CARE PHYSICIAN: Andreina Meraz NP. CHIEF COMPLAINT: Shortness of breath. HISTORY OF PRESENT ILLNESS: This is a 67-year-old female with a past medical history of CHF, poorly controlled diabetes, and peripheral vascular disease, who presents to the emergency room with worsening shortness of breath. The patient states her shortness of breath has gotten progressively worse over the past several days with chest pressure and heaviness. She has a persistent dry cough, that she can hear a rattle in her lungs. She has gained a significant amount of weight over the past few days. Last week, she saw Dr. Morales for followup with her osteomyelitis and he increased her morning Lasix dose from 20 mg b.i.d. to 40 mg in the morning and 20 mg in the evening. No significant change in her breathing. She states she has significant lower extremity swelling. She is unable to change her dressing from her wound due to significant shortness of breath. She does not have any chest pain right now. No nausea, no abdominal pain, no urinary symptoms. She states she has loose watery diarrhea all day long since starting her antibiotics for her osteomyelitis. She has not seen by a hostel manager and is not sure if she has ever had an echocardiogram, otherwise remaining review of systems is negative. In the emergency room, the patient had labs, imaging. She was given Lasix 40 mg IV once, aspirin 325 and was referred to the hospitalist service for further evaluation. PAST MEDICAL HISTORY: 1. Poorly controlled diabetes. 2. Chronic osteomyelitis of the left foot, followed by Dr. Morales, on IV antibiotics. 3. History of congestive heart failure. 4. Peripheral vascular disease. 5. Recent stenting of left lower extremity. 6. Hyperlipidemia. 7. Atrial fibrillation, on anticoagulation. MEDICATIONS: 1. Ceftriaxone 2 g every 24 hours x36 days. 2. Flagyl 500 mg p.o. b.i.d. 3. Lantus 65 units at bedtime. 4. NovoLog 20 units and sliding scale a.c. 5. Metoprolol succinate ER 25 mg p.o. daily. 6. Lasix recently increased to 40 mg in the morning and 20 mg in the evening. 7. Eliquis 5 mg p.o. b.i.d. 8. Celebrex 200 mg p.o. b.i.d. 9. Diltiazem CD 240 mg daily. 10. Lipitor 40 mg at bedtime. 11. Tylenol 650 mg every 6 hours as needed for pain. 12. Brilinta 90 mg p.o. b.i.d. ALLERGIES: EMPAGLIFLOZIN and PENICILLIN. FAMILY HISTORY: Mother at age 96 of malaise. Father at 69 from cancer. SOCIAL HISTORY: The patient lives at home alone with her dog and her cat. She ambulates with a cane. Her healthcare proxy is Abiola Mckee. She is still smoking, she said she is down to 1 cigarette a day, she has been smoking for the past 56 years, her peak was up to 3 packs per day. Rare alcohol use. No illicit drug use. Her code status is full code. REVIEW OF SYSTEMS: A 14-point review of systems as mentioned in the HPI. Pertinent positives and negatives were reviewed and otherwise negative. PHYSICAL EXAMINATION GENERAL: Some mild conversation dyspnea, no significant acute distress. VITAL SIGNS: Temp 97.9, pulse rate 71, respiratory rate 17, oxygen saturation 99% on 2 L, blood pressure 140/81. HEENT: Head normocephalic. Pupils equal and reactive. Anicteric. Oropharynx : Mucous membranes moist. No erythema or exudate. NECK: Supple. No lymphadenopathy. RESPIRATORY: Rhonchorous rales bilaterally with expiratory wheezing, prolonged expiratory phase, diminished breath sounds. CARDIAC: Regular rate and rhythm. Soft systolic murmur heard throughout. ABDOMEN: Soft, nontender. Distended. EXTREMITIES: +2 pretibial edema. Distant pulses. DERM: The patient with a 3 to 4 cm open wound on the medial aspect of her left lower foot with surrounding erythema, some mild tenderness to palpation. Wound is exposing subcutaneous tissue. No purulent drainage. NEUROLOGIC: Alert and oriented x3. No focal neurologic deficits. DIAGNOSTIC STUDIES/LAB DATA: White count 14.3, hemoglobin 8.1, hematocrit 25, platelet 332. INR is 1.35. Sodium 135, potassium 3.6, chloride 100, bicarb 29 , BUN 24, creatinine 0.52, glucose 247. Troponin 0.01. BNP 165. Chest x-ray shows prominent interstitial markings with cardiomegaly. EKG shows normal sinus rhythm with flattened T waves. ASSESSMENT: This is a 67-year-old female with past medical history of congestive heart failure, poorly controlled diabetes, and chronic osteomyelitis , on IV antibiotics, who presents to the emergency room with acute onset of worsening shortness of breath, chest pressure in the setting of weight gain. 1. Shortness of breath and chest pressure. Assessment: The patient's history and physical is most consistent with acute decompensated congestive heart failure. It is possible she also has underlying chronic obstructive pulmonary disease exacerbation with her wheezing, however, I would treat primarily for heart failure. Plan: We will admit her to telemetry. We will give another 40 of IV Lasix down in the emergency room for a total of 80 as she has not had any urine output yet. Monitor I's and O's. Low-salt diet. Fluid restriction. We will place her on 60 mg IV daily. Check an echocardiogram. Trend her troponin. Lipid panel. We will also give her DuoNeb and nitro paste if her urine output improves. If she is still having respiratory issues, we will consider underlying chronic obstruction pulmonary disease exacerbation as well. 2. Leukocytosis. Assessment: It could be an acute phase reactant, however, the patient with loose diarrhea and on antibiotics. Plan: We will check a C. diff and monitor, check followup on her urine as well. 3. Chronic osteomyelitis. We will resume her medications and place a wound care consult and for dressing change recommendations. CHRONIC MEDICAL PROBLEMS: 1. We will resume her home medications as prescribed for peripheral vascular disease, which includes Brilinta. 2. Atrial fibrillation. Resume her Eliquis. She is currently in normal sinus rhythm. 3. Congestive heart failure. As mentioned, we will continue metoprolol. We will increase her Lasix as described and continue diltiazem and follow up on her echocardiogram. 4. FEN. We will place her on heart-healthy, low-salt diet. Fluid restricted. 5. DVT prophylaxis. The patient scores high risk. She is on Eliquis. 6. Code status. Full code. PATIENT TIME: Greater than 60 minutes spent doing the history and physical, more than half the time spent in direct patient contact. [id number]/[facility] #: [id number] MTDD
[2017-07-09 12:49] LABS: HDL Cholesterol 28.1 mg/dL
[2017-07-09] MEDS: Atorvastatin* 40 MG TAB PO SCH (17:32)
[2017-07-09] MEDS ORDERED: Insulin GLARGINE(*) 1 UNITS UNIT SUBCUT SCH (21:00)
[2017-07-09] MEDS: cefTRIAXone(*) 2 GM in D5W 100 ML BAG* 100 ML IVPB SCH (21:28)
[2017-07-10] MEDS ORDERED: Nitroglycerin TAB 0.4 MG* 0.4 MG TAB ONE (05:12)
[2017-07-10 05:23] LABS: Hematocrit 24 % (35-47); Hemoglobin 7.6 g/dl (12.0-16.0); Mean Corpuscular HGB Conc 32 g/dl (31-36); Mean Corpuscular Hemoglobin 28 pg (27-31); Mean Corpuscular Volume 86 fL (80-97); Mean Platelet Volume 7 um3 (7.4-10.4); Red Blood Count 2.74 10^6/ul (4.0-5.4); Red Cell Distribution Width 18 % (10.5-15); White Blood Count 9.1 10^3/ul (3.5-10.8)
--- NOTE | 2017-07-10 05:23 | PN ---
Progress Note - Progress Note Date of Service: 07/10/17 Note: CAT call for diaphoresis, not feeling well and chest pain. Glucose: 40. Amp of D50 given. EKG unremarkable. Patient initially answering with one word sentences. ABG and labs ordered. Patient states she takes Lantus 68 units at bedtime, often wakes up feeling horrible with low glucose, often finds herself passed out with her dog lying on her. Will decrease Lantus to 15 units BID for now.
[2017-07-10 05:38] LABS: BUN/Creatinine Ratio 40.9 (8-20); EGFR African American 114.2 (>60); EGFR Non-African American 88.8 (>60); Potassium 3.2 mmol/L (3.5-5.0)
[2017-07-10 05:41] LABS: Troponin I 0.01 ng/mL (<0.04)
[2017-07-10] MEDS ORDERED: Potassium Chlor TAB* 20 MEQ TAB.ER PO SCH (05:48)
[2017-07-10 05:50] LABS: FIO2 60; PCO2 Arterial 46 mmHg (35-45)
[2017-07-10 06:10] LABS: Magnesium 2.3 mg/dL (1.9-2.7)
--- NOTE | 2017-07-10 07:46 | PN ---
Subjective Date of Service: 07/10/17 Interval History: Pt had severe diaphoresis at 5 AM today. She states she didn't eat her usual amount here yesterday. She still feels washed out from the hypoglycemia. ALso still SOB/FELIX. Objective Active Medications: Acetaminophen (Tylenol Tab*) 650 mg PO Q4H PRN PRN Reason: FEVER/PAIN Al Hydrox/Mg Hydrox/Simethicone (Maalox Plus*) 30 ml PO Q6H PRN PRN Reason: INDIGESTION Apixaban (Eliquis*) 5 mg PO BID [facility] Last Admin: 07/09/17 21:25 Dose: 5 mg Atorvastatin Calcium (Lipitor*) 40 mg PO 1700 [facility] Last Admin: 07/09/17 17:32 Dose: 40 mg Dextrose (D50w Syringe 50 Ml*) 12.5 gm IV PUSH .FOR FS < 60 - SS PRN PRN Reason: FS < 60 Last Admin: 07/10/17 05:07 Dose: 25 gm Diltiazem HCl (Cardizem Cd Cap*) 240 mg PO DAILY [facility] Last Admin: 07/09/17 09:41 Dose: 240 mg Ferrous Sulfate (Ferrous Sulfate Tab*) 325 mg PO DAILY [facility] Last Admin: 07/09/17 10:20 Dose: 325 mg Ceftriaxone Sodium 2 gm/ (Dextrose) 100 mls @ 200 mls/hr IVPB Q24H [facility] Last Admin: 07/09/17 21:28 Dose: 200 mls/hr Insulin Glargine (Lantus(*)) 40 units SUBCUT BEDTIME [facility] Insulin Human Lispro (Humalog*) 0 units SUBCUT AC [facility] PRN Reason: Protocol Last Admin: 07/09/17 17:32 Dose: 3 units Insulin Human Lispro (Humalog*) 0 units SUBCUT AC [facility] PRN Reason: Protocol Last Admin: 07/09/17 17:33 Dose: 3 units Metolazone (Zaroxolyn Tab*) 5 mg PO ONCE ONE Stop: 07/10/17 08:31 Metoprolol Succinate (Toprol Xl Tab*) 25 mg PO DAILY [facility] Last Admin: 07/09/17 09:41 Dose: 25 mg Metronidazole (Flagyl Tab*) 500 mg PO TID [facility] Last Admin: 07/09/17 21:25 Dose: 500 mg Morphine Sulfate (Morphine Inj (Syringe)*) 2 mg IV Q4H PRN PRN Reason: PAIN - MILD Ondansetron HCl (Zofran Inj*) 4 mg IV Q4H PRN PRN Reason: NAUSEA/VOMITING Potassium Chloride (Klor Con Er Tab*) 20 meq PO BID [facility] Last Admin: 07/10/17 07:14 Dose: 20 meq Ticagrelor (Brilinta*) 90 mg PO BID [facility] Last Admin: 07/09/17 21:25 Dose: 90 mg Torsemide (Demadex*) 80 mg PO DAILY [facility] Vital Signs 07/09/17 07/09/17 07/09/17 10:30 11:53 15:43 Temperature 98.0 F 98.4 F Pulse Rate 73 74 Respiratory 20 20 20 Rate Blood Pressure 131/57 126/49 (mmHg) O2 Sat by Pulse 100 97 Oximetry 07/09/17 07/09/17 07/10/17 19:54 20:00 00:54 Temperature 98.9 F 99.1 F Pulse Rate 72 72 Respiratory 22 22 20 Rate Blood Pressure 124/47 106/61 (mmHg) O2 Sat by Pulse 99 90 Oximetry 07/10/17 04:07 Temperature 97.4 F Pulse Rate 87 Respiratory 20 Rate Blood Pressure 137/47 (mmHg) O2 Sat by Pulse 99 Oximetry Oxygen Devices in Use Now: Nasal Cannula Appearance: Alert, head partly up in bed. In fair spirits. Looks fatigued. Respiratory: Symmetrical Chest Expansion and Respiratory Effort, Clear to Auscultation, Clear to Percussion Cardiovascular: NL Sounds; No Murmurs; No JVD, RRR, No Edema, - Extremities: No Clubbing, Cyanosis, - - 1+ edema BL. L heel bandaged. Skin: No Rash or Ulcers, No Nodules or Sclerosis, - Neurological: Alert and Oriented x 3, NL Sensation Result Diagrams: 07/10/17 05:16 07/10/17 05:16 Microbiology and Other Data: Microbiology 07/09/17 21:40 Stool Occult Blood (QUYNH) - Final Stool Assess/Plan/Problems-Billing Assessment: - Patient Problems (1) CHF (congestive heart failure) Current Visit: No Status: Acute Code(s): I50.9 - HEART FAILURE, UNSPECIFIED SNOMED Code(s): 72528043 Comment: Unknown type. Echo 07/10. Mediocre response to torsemide 60 mg 07/09. PVR by bladder scan was low. Metolazone 5 mg once 07/10, increase daily torsemide to 80 mg. BMP 07/11. (2) Atrial fibrillation Current Visit: No Status: Acute Code(s): I48.91 - UNSPECIFIED ATRIAL FIBRILLATION SNOMED Code(s): 36965378 Comment: Pt remains in NSR. Continue diltiazem, metoprolol XL, apixaban. (3) Diabetes mellitus Current Visit: No Status: Acute Code(s): E11.9 - TYPE 2 DIABETES MELLITUS WITHOUT COMPLICATIONS SNOMED Code(s): 24022624 Comment: Reduce Lantus to 40 U hs, continue Lispro by SS. Pt reports poor control at home. Pt needs better diet, better insulin directions. Transportation as outpt to certified diabetes educator might be a problem. (4) Diabetic foot ulcer with osteomyelitis Current Visit: No Status: Acute Code(s): E11.621 - TYPE 2 DIABETES MELLITUS WITH FOOT ULCER; E11.69 - TYPE 2 DIABETES MELLITUS WITH OTHER SPECIFIED COMPLICATION; L97.509 - NON-PRESSURE CHRONIC ULCER OTH PRT UNSP FOOT W UNSP SEVERITY; M86.9 - OSTEOMYELITIS, UNSPECIFIED SNOMED Code(s): 61367733 Comment: Continue IV ceftriaxone. Pt reports severe diarrhea with cefepime, states Dr. Morales changed the antibiotic. Continue outpt tx plan. (5) Tobacco abuse Current Visit: No Status: Acute Code(s): Z72.0 - TOBACCO USE SNOMED Code(s ): 731938611 Comment: Pt advised to quit smoking and avoid second hand smoke. She states she smoke 1 cigarette per day. (6) Morbid obesity Current Visit: Yes Status: Acute Code(s): E66.01 - MORBID (SEVERE) OBESITY DUE TO EXCESS CALORIES SNOMED Code(s): 148066991 Comment: BMI 44.6. (7) PVD (peripheral vascular disease) Current Visit: Yes Status: Acute Code(s): I73.9 - PERIPHERAL VASCULAR DISEASE, UNSPECIFIED SNOMED Code(s): 232947724 Comment: Stents 06/15/17. Discussed with Dr. Wallace. No ASA while on ticagrelor and apixaban.
--- NOTE | 2017-07-10 07:54 | PN ---
Subjective Date of Service: 07/10/17 Interval History: Addendum to earlier note today: Pt had severe diaphoresis at 5 AM today. She states she didn't eat her usual amount here yesterday. She still feels washed out from the hypoglycemia. ALso still SOB/FELIX. Objective Active Medications: Acetaminophen (Tylenol Tab*) 650 mg PO Q4H PRN PRN Reason: FEVER/PAIN Al Hydrox/Mg Hydrox/Simethicone (Maalox Plus*) 30 ml PO Q6H PRN PRN Reason: INDIGESTION Apixaban (Eliquis*) 5 mg PO BID [facility] Last Admin: 07/09/17 21:25 Dose: 5 mg Atorvastatin Calcium (Lipitor*) 40 mg PO 1700 [facility] Last Admin: 07/09/17 17:32 Dose: 40 mg Dextrose (D50w Syringe 50 Ml*) 12.5 gm IV PUSH .FOR FS < 60 - SS PRN PRN Reason: FS < 60 Last Admin: 07/10/17 05:07 Dose: 25 gm Diltiazem HCl (Cardizem Cd Cap*) 240 mg PO DAILY [facility] Last Admin: 07/09/17 09:41 Dose: 240 mg Ferrous Sulfate (Ferrous Sulfate Tab*) 325 mg PO DAILY [facility] Last Admin: 07/09/17 10:20 Dose: 325 mg Ceftriaxone Sodium 2 gm/ (Dextrose) 100 mls @ 200 mls/hr IVPB Q24H [facility] Last Admin: 07/09/17 21:28 Dose: 200 mls/hr Insulin Glargine (Lantus(*)) 40 units SUBCUT BEDTIME [facility] Insulin Human Lispro (Humalog*) 0 units SUBCUT AC [facility] PRN Reason: Protocol Last Admin: 07/09/17 17:32 Dose: 3 units Insulin Human Lispro (Humalog*) 0 units SUBCUT AC [facility] PRN Reason: Protocol Last Admin: 07/09/17 17:33 Dose: 3 units Metolazone (Zaroxolyn Tab*) 5 mg PO ONCE ONE Stop: 07/10/17 08:31 Metoprolol Succinate (Toprol Xl Tab*) 25 mg PO DAILY [facility] Last Admin: 07/09/17 09:41 Dose: 25 mg Metronidazole (Flagyl Tab*) 500 mg PO TID [facility] Last Admin: 07/09/17 21:25 Dose: 500 mg Morphine Sulfate (Morphine Inj (Syringe)*) 2 mg IV Q4H PRN PRN Reason: PAIN - MILD Ondansetron HCl (Zofran Inj*) 4 mg IV Q4H PRN PRN Reason: NAUSEA/VOMITING Potassium Chloride (Klor Con Er Tab*) 20 meq PO BID [facility] Last Admin: 07/10/17 07:14 Dose: 20 meq Ticagrelor (Brilinta*) 90 mg PO BID [facility] Last Admin: 07/09/17 21:25 Dose: 90 mg Torsemide (Demadex*) 80 mg PO DAILY [facility] Vital Signs 07/09/17 07/09/17 07/09/17 10:30 11:53 15:43 Temperature 98.0 F 98.4 F Pulse Rate 73 74 Respiratory 20 20 20 Rate Blood Pressure 131/57 126/49 (mmHg) O2 Sat by Pulse 100 97 Oximetry 07/09/17 07/09/17 07/10/17 19:54 20:00 00:54 Temperature 98.9 F 99.1 F Pulse Rate 72 72 Respiratory 22 22 20 Rate Blood Pressure 124/47 106/61 (mmHg) O2 Sat by Pulse 99 90 Oximetry 07/10/17 04:07 Temperature 97.4 F Pulse Rate 87 Respiratory 20 Rate Blood Pressure 137/47 (mmHg) O2 Sat by Pulse 99 Oximetry Oxygen Devices in Use Now: Nasal Cannula Result Diagrams: 07/10/17 05:16 07/10/17 05:16 Microbiology and Other Data: Microbiology 07/09/17 21:40 Stool Occult Blood (QUYNH) - Final Stool Assess/Plan/Problems-Billing Assessment: - Patient Problems (1) CHF (congestive heart failure) Current Visit: No Status: Acute Code(s): I50.9 - HEART FAILURE, UNSPECIFIED SNOMED Code(s): 56198658 Comment: Unknown type. Echo 07/10. Mediocre response to torsemide 60 mg 07/09. PVR by bladder scan was low. Metolazone 5 mg once 07/10, increase daily torsemide to 80 mg. BMP 07/11. (2) Atrial fibrillation Current Visit: No Status: Acute Code(s): I48.91 - UNSPECIFIED ATRIAL FIBRILLATION SNOMED Code(s): 28169537 Comment: Pt remains in NSR. Continue diltiazem, metoprolol XL, apixaban. (3) Diabetes mellitus Current Visit: No Status: Acute Code(s): E11.9 - TYPE 2 DIABETES MELLITUS WITHOUT COMPLICATIONS SNOMED Code(s): 69269293 Comment: Reduce Lantus to 40 U hs, continue Lispro by SS. Pt reports poor control at home. Pt needs better diet, better insulin directions. Transportation as outpt to cover mat machine operator might be a problem. (4) Diabetic foot ulcer with osteomyelitis Current Visit: No Status: Acute Code(s): E11.621 - TYPE 2 DIABETES MELLITUS WITH FOOT ULCER; E11.69 - TYPE 2 DIABETES MELLITUS WITH OTHER SPECIFIED COMPLICATION; L97.509 - NON-PRESSURE CHRONIC ULCER OTH PRT UNSP FOOT W UNSP SEVERITY; M86.9 - OSTEOMYELITIS, UNSPECIFIED SNOMED Code(s): 58330036 Comment: Continue IV ceftriaxone. Pt reports severe diarrhea with cefepime, states Dr. Morales changed the antibiotic. Continue outpt tx plan. (5) Tobacco abuse Current Visit: No Status: Acute Code(s): Z72.0 - TOBACCO USE SNOMED Code(s ): 799266577 Comment: Pt advised to quit smoking and avoid second hand smoke. She states she smoke 1 cigarette per day. (6) Morbid obesity Current Visit: Yes Status: Acute Code(s): E66.01 - MORBID (SEVERE) OBESITY DUE TO EXCESS CALORIES SNOMED Code(s): 785567233 Comment: BMI 44.6. (7) PVD (peripheral vascular disease) Current Visit: Yes Status: Acute Code(s): I73.9 - PERIPHERAL VASCULAR DISEASE, UNSPECIFIED SNOMED Code(s): 074116509 Comment: Stents 06/15/17. Discussed with Dr. Wallace. No ASA while on ticagrelor and apixaban. (8) Anemia Current Visit: No Status: Acute Code(s): D64.9 - ANEMIA, UNSPECIFIED SNOMED Code(s): 363612424 Comment: B12 wnl. Iron sat 7%. Ferritin 38,7 on 06/03/17 may be due to acute inflmmatory repsonse. FeSO4 started 07/09/17. CBC 07/11. (9) Hypokalemia Current Visit: Yes Status: Acute Code(s): E87.6 - HYPOKALEMIA SNOMED Code( s): 99753624 Comment: Start KCL 20 meq tid, 3 doses on 07/10, BMP 07/11.
[2017-07-10] MEDS ORDERED: Metolazone TAB* 5 MG PO ONE (08:30)
[2017-07-10] MEDS: Apixaban* 5 MG TAB PO SCH ×2 (08:36→20:55)
[2017-07-10] MEDS: Ticagrelor* 90 MG TAB PO SCH ×2 (08:37→20:54)
[2017-07-10] MEDS: Ferrous Sulfate TAB* 325 MG PO SCH (08:37)
[2017-07-10] MEDS: Potassium Chlor TAB* 10 MEQ TAB.ER PO SCH ×3 (08:37→20:55)
[2017-07-10] MEDS: Metoprolol Succinate XL TAB* 25 MG PO SCH (08:37)
[2017-07-10] MEDS: Diltiazem CD CAP* 240 MG PO SCH (08:37)
[2017-07-10] MEDS: metroNIDAZOLE TAB* 250 MG PO SCH ×3 (08:37→20:55)
[2017-07-10] MEDS: Insulin LISPRO* 1 UNITS UNIT SUBCUT SCH ×6 (08:42→17:52)
[2017-07-10] MEDS ORDERED: Furosemide IV* 10 MG/ML 10 ML VIAL (100 MG) IV SCH (09:00)
[2017-07-10] MEDS ORDERED: Torsemide TAB* 20 MG PO SCH (09:00)
[2017-07-10] MEDS: Atorvastatin* 40 MG TAB PO SCH (17:52)
[2017-07-10] MEDS: Collagenase 250 MG/GM OINT* 30 GM TOPICAL SCH (18:18)
[2017-07-10] MEDS: cefTRIAXone(*) 2 GM in D5W 100 ML BAG* 100 ML IVPB SCH (20:52)
[2017-07-10] MEDS: Insulin GLARGINE(*) 1 UNITS UNIT SUBCUT SCH (20:56)
[2017-07-10] MEDS ORDERED: Insulin GLARGINE(*) 1 UNITS UNIT SUBCUT SCH ×3 (21:00)
[2017-07-10 23:37] LABS: BUN/Creatinine Ratio 34.9 (8-20); Calcium 8.7 mg/dL (8.6-10.3); EGFR African American 87.7 (>60); EGFR Non-African American 68.2 (>60); Potassium 3.8 mmol/L (3.5-5.0)
[2017-07-11 05:25] LABS: Hematocrit 23 % (35-47); Hemoglobin 7.6 g/dl (12.0-16.0); Mean Corpuscular HGB Conc 33 g/dl (31-36); Mean Corpuscular Hemoglobin 28 pg (27-31); Mean Corpuscular Volume 86 fL (80-97); Mean Platelet Volume 7 um3 (7.4-10.4); Red Blood Count 2.73 10^6/ul (4.0-5.4); Red Cell Distribution Width 18 % (10.5-15); White Blood Count 10.1 10^3/ul (3.5-10.8)
[2017-07-11 05:35] LABS: Albumin 2.5 g/dL (3.2-5.2); BUN/Creatinine Ratio 35.5 (8-20); Calcium 8.5 mg/dL (8.6-10.3); EGFR Non-African American 75.5 (>60); Globulin 2.8 g/dL (2-4); Potassium 3.7 mmol/L (3.5-5.0); Total Bilirubin 0.3 mg/dL (0.2-1.0); Total Protein 5.3 g/dL (6.4-8.9)
[2017-07-11] MEDS: Collagenase 250 MG/GM OINT* 30 GM TOPICAL SCH (07:16)
[2017-07-11] MEDS: metroNIDAZOLE TAB* 250 MG PO SCH ×3 (08:14→19:44)
[2017-07-11] MEDS: Torsemide TAB* 20 MG PO SCH (08:14)
[2017-07-11] MEDS: Ticagrelor* 90 MG TAB PO SCH ×2 (08:14→19:44)
[2017-07-11] MEDS: Potassium Chlor TAB* 10 MEQ TAB.ER PO SCH ×3 (08:15→19:44)
[2017-07-11] MEDS: Apixaban* 5 MG TAB PO SCH ×2 (08:15→19:44)
[2017-07-11] MEDS: Metoprolol Succinate XL TAB* 25 MG PO SCH (08:15)
[2017-07-11] MEDS: Ferrous Sulfate TAB* 325 MG PO SCH (08:16)
[2017-07-11] MEDS: Diltiazem CD CAP* 240 MG PO SCH (08:16)
[2017-07-11] MEDS: Insulin LISPRO* 1 UNITS UNIT SUBCUT SCH ×6 (09:53→18:39)
--- NOTE | 2017-07-11 13:36 | ECHO ---
Patient: PRESLEY XAVIER [facility] Rec#: [id number] : 1950 Date: 07/11/2017 Age: 67y Height: 157.48 cm / 62.0 in Weight: 112.04 kg / 246.9 lbs Sex: F BSA: 2.09 Room#: 440 Admit Date#: 07/09/2017 Type: Inpatient Referring: Daisy Oh Reading: Ayaz Nelson MD Supervisor [employer]: Loni TeranRDCS,RDMS Transthoracic Echocardiogram Indication: CHF BP: 112/57 HR: 90 Rhythm: NSR with PVCs Findings History: HTN, HLD, DM, CHF, PVD, COPD Technical Comments: The study quality is good. Left Ventricle: The left ventricular chamber size is normal. Mild concentric left ventricular hypertrophy is observed. Global left ventricular wall motion and contractility are within normal limits. There is normal left ventricular systolic function. The estimated ejection fraction is 55-60%. The left ventricular diastolic filling pattern is consistent with pseudonormalization. Left Atrium: The left atrium is mildly dilated. Right Ventricle: The right ventricle wall thickness is mildly increased. The right ventricular cavity size is normal. The right ventricular global systolic function is normal. Right Atrium: The right atrium is mildly dilated. Aortic Valve: The aortic valve is trileaflet. The aortic valve leaflets are mildly thickened. There is no evidence of aortic regurgitation. There is mild aortic stenosis. The mean gradient of the aortic valve is 11 mmHg. The aortic valve area, by peak velocities, is calculated at 1.9 cm2. Mitral Valve: The mitral valve leaflets are mildly thickened. There is mild mitral regurgitation. There is no evidence of mitral stenosis. Tricuspid Valve: There is trace tricuspid regurgitation. There is evidence of mild pulmonary hypertension. Pulmonic Valve: There is no evidence of pulmonic valve thickening. There is a trace pulmonic regurgitation. Pericardium: There is no significant pericardial effusion. Aorta: The aortic root appears normal. The aortic arch is not well visualized. Pulmonary Artery: The main pulmonary artery is not well visualized. Venous: The inferior vena cava appears normal in size. There is a greater than 50% respiratory change in the inferior vena cava dimension. Conclusions Global left ventricular wall motion and contractility are within normal limits. There is normal left ventricular systolic function. The estimated ejection fraction is 55-60%. The right ventricular global systolic function is normal. The aortic valve leaflets are mildly thickened. There is mild aortic stenosis. There is mild mitral regurgitation. There is trace tricuspid regurgitation. There is evidence of mild pulmonary hypertension. There is no significant pericardial effusion. Measurements Name Value Normal Range RVIDd (AP) 2D 3.4 cm (0.9 - 2.6) RVDdMajor (2D) 2.6 cm (2.2 - 4.4) RAd ISD 4CH 5.6 cm (3.4 - 4.9) RA (A4C)W 3.7 cm (2.9 - 4.6) IVSd (2D) 1.2 cm (0.6 - 1) LVPWd (2D) 1.2 cm (0.6 - 1) LVIDd (2D) 4.8 cm (3.6 - 5.4) LVIDs (2D) 3.3 cm - LV FS (2D) 32 % (25 - 45) Aortic Annulus 2 cm (1.4 - 2.6) Ao root diameter (2D) 2.7 cm (2.1 - 3.5) Ascending Ao 3 cm (2.1 - 3.4) LA dimension (AP) 2D 4 cm (2.3 - 3.8) LAd ISD 4CH 5.9 cm (2.9 - 5.3) LA ISD 4CH W 4.2 cm (2.5 - 4.5) Name Value Normal Range LA ESV SP 4CH (A/L) 48.2 ml - LA ESV SP 2CH (A/L) 78.23 ml - LA ESV BP (A/L) 61.58 ml - LA ESV BP (A/L) index 29.5 ml/m2 - LA ESV SP 4CH (MOD) 44.76 ml - LA ESV SP 2CH (MOD) 73.46 ml - Name Value Normal Range MV E-wave Vmax 1.3 m/sec - MV deceleration time 189 msec - MV A-wave Vmax 1 m/sec - MV E:A ratio 1.2 ratio - P. vein S-wave Vmax 0.7 m/sec - P. vein D-wave Vmax 0.8 m/sec - P. vein S:D Vmax ratio 0.8 ratio - P. vein A-wave duration 93.4 msec - LV septal e' Vmax 0.05 m/sec - LV lateral e' Vmax 0.08 m/sec - LV E:e' septal ratio 26 ratio - LV E:e' lateral ratio 16 ratio - Name Value Normal Range AV Vmax 2.1 m/sec - AV VTI 51.4 cm - AV peak gradient 18 mmHg - AV mean gradient 11 mmHg - LVOT diameter 2 cm - LVOT Vmax 1.3 m/sec - LVOT VTI 29.5 cm - LVOT peak gradient 7 mmHg - LVOT mean gradient 3.5 mmHg - DOI (VTI) 0.6 ratio - MARCELO (continuity Vmax) 1.9 cm2 - MARCELO (continuity VTI) 1.8 cm2 - EMANUEL Vmax 0.8 m/sec - Name Value Normal Range MV Vmax 1.3 m/sec - MV VTI 43.1 cm - MV peak gradient 7 mmHg - MV mean gradient 2.8 mmHg - MV PHT 72 msec - MVA (PHT) 3.1 cm2 - MVA (continuity VTI) 2.1 cm2 - Name Value Normal Range TR Vmax 3.1 m/sec - TR peak gradient 37 mmHg - RAP 3 mmHg - RVSP 40 mmHg - IVC diameter 1.8 cm - Name Value Normal Range PV Vmax 1 m/sec - PV peak gradient 4 mmHg -
[2017-07-11] MEDS: Atorvastatin* 40 MG TAB PO SCH (18:40)
[2017-07-11] MEDS: cefTRIAXone(*) 2 GM in D5W 100 ML BAG* 100 ML IVPB SCH (19:39)
[2017-07-11] MEDS: Insulin GLARGINE(*) 1 UNITS UNIT SUBCUT SCH (20:03)
--- NOTE | 2017-07-11 21:36 | PN ---
Subjective Date of Service: 07/11/17 Interval History: Patient less SOB but still feels she is full of fluid. She does not feel ready to go home yet. Objective Active Medications: Acetaminophen (Tylenol Tab*) 650 mg PO Q4H PRN PRN Reason: FEVER/PAIN Al Hydrox/Mg Hydrox/Simethicone (Maalox Plus*) 30 ml PO Q6H PRN PRN Reason: INDIGESTION Apixaban (Eliquis*) 5 mg PO BID [facility] Last Admin: 07/11/17 19:44 Dose: 5 mg Atorvastatin Calcium (Lipitor*) 40 mg PO 1700 [facility] Last Admin: 07/11/17 18:40 Dose: 40 mg Collagenase (Santyl 250 Mg/Gm Oint*) 1 applic TOPICAL DAILY [facility] Last Admin: 07/11/17 07:16 Dose: 1 applic Dextrose (D50w Syringe 50 Ml*) 12.5 gm IV PUSH .FOR FS < 60 - SS PRN PRN Reason: FS < 60 Last Admin: 07/10/17 05:07 Dose: 25 gm Diltiazem HCl (Cardizem Cd Cap*) 240 mg PO DAILY [facility] Last Admin: 07/11/17 08:16 Dose: 240 mg Ferrous Sulfate (Ferrous Sulfate Tab*) 325 mg PO DAILY [facility] Last Admin: 07/11/17 08:16 Dose: 325 mg Ceftriaxone Sodium 2 gm/ (Dextrose) 100 mls @ 200 mls/hr IVPB Q24H [facility] Last Admin: 07/11/17 19:39 Dose: 200 mls/hr Insulin Glargine (Lantus(*)) 40 units SUBCUT BEDTIME [facility] Last Admin: 07/11/17 20:03 Dose: 40 unit Insulin Human Lispro (Humalog*) 0 units SUBCUT AC [facility] PRN Reason: Protocol Last Admin: 07/11/17 18:39 Dose: 2 units Insulin Human Lispro (Humalog*) 0 units SUBCUT AC [facility] PRN Reason: Protocol Last Admin: 07/11/17 18:39 Dose: 6 units Metolazone (Zaroxolyn Tab*) 2.5 mg PO TUTHSA [facility] Metoprolol Succinate (Toprol Xl Tab*) 25 mg PO DAILY [facility] Last Admin: 07/11/17 08:15 Dose: 25 mg Metronidazole (Flagyl Tab*) 500 mg PO TID [facility] Last Admin: 07/11/17 19:44 Dose: 500 mg Morphine Sulfate (Morphine Inj (Syringe)*) 2 mg IV Q4H PRN PRN Reason: PAIN - MILD Ondansetron HCl (Zofran Inj*) 4 mg IV Q4H PRN PRN Reason: NAUSEA/VOMITING Potassium Chloride (Klor Con Er Tab*) 20 meq PO TID [facility] Last Admin: 07/11/17 19:44 Dose: 20 meq Ticagrelor (Brilinta*) 90 mg PO BID [facility] Last Admin: 07/11/17 19:44 Dose: 90 mg Torsemide (Demadex*) 60 mg PO DAILY [facility] Last Admin: 07/11/17 08:14 Dose: 60 mg Vital Signs 07/10/17 07/11/17 07/11/17 23:51 03:51 07:49 Temperature 99.5 F 99.3 F Pulse Rate 71 70 68 Respiratory 20 20 Rate Blood Pressure 113/49 112/57 (mmHg) O2 Sat by Pulse 100 99 100 Oximetry 07/11/17 07/11/17 07/11/17 07:51 07:59 11:46 Temperature 98.0 F 100.4 F Pulse Rate 65 68 Respiratory 20 18 18 Rate Blood Pressure 114/43 128/49 (mmHg) O2 Sat by Pulse 100 97 Oximetry 07/11/17 07/11/17 15:40 19:34 Temperature 99.0 F 97.5 F Pulse Rate 68 78 Respiratory 20 22 Rate Blood Pressure 132/50 106/40 (mmHg) O2 Sat by Pulse 96 95 Oximetry Oxygen Devices in Use Now: Nasal Cannula Eyes: No Scleral Icterus, PERRLA Ears/Nose/Mouth/Throat: Mucous Membranes Moist Neck: No Thyroid Enlargement, Masses Respiratory: Clear to Auscultation Cardiovascular: - - S1S2 karina B/L +2 pitting edema Abdominal: NL Sounds; No Tenderness; No Distention, No Hepatosplenomegaly Lymphatic: No Cervical Adenopathy Skin: No Rash or Ulcers Neurological: Alert and Oriented x 3 Result Diagrams: 07/11/17 05:06 07/11/17 05:06 Microbiology and Other Data: Microbiology 07/09/17 21:40 Stool Occult Blood (QUYNH) - Final Stool Assess/Plan/Problems-Billing Assessment: - Patient Problems (1) CHF (congestive heart failure) Current Visit: No Status: Acute Code(s): I50.9 - HEART FAILURE, UNSPECIFIED SNOMED Code(s): 68761679 Comment: Echo 07/10 was fairly unremarkable.. Mediocre response to torsemide 60 mg 07/09. PVR by bladder scan was low. Metolazone 5 mg once 07/10, increase daily torsemide to 80 mg. Not convinced she has CHF but other reasons for peripheral edema possible. Her BNP is not impressive either. (2) Atrial fibrillation Current Visit: No Status: Acute Code(s): I48.91 - UNSPECIFIED ATRIAL FIBRILLATION SNOMED Code(s): 57201233 Comment: Pt remains in NSR. Continue diltiazem, metoprolol XL, apixaban. (3) Hypokalemia Current Visit: Yes Status: Acute Code(s): E87.6 - HYPOKALEMIA SNOMED Code( s): 42466413 Comment: Would like K > 4. Replete again (4) Morbid obesity Current Visit: Yes Status: Acute Code(s): E66.01 - MORBID (SEVERE) OBESITY DUE TO EXCESS CALORIES SNOMED Code(s): 235653951 Comment: BMI 44.6. Encouraged weight loss. (5) Anemia Current Visit: No Status: Acute Code(s): D64.9 - ANEMIA, UNSPECIFIED SNOMED Code(s): 121329964 Comment: B12 wnl. Iron sat 7%. Ferritin 38,7 on 06/03/17 may be due to acute inflmmatory repsonse. FeSO4 started 07/09/17. CBC 07/11. (6) Diabetes mellitus Current Visit: No Status: Acute Code(s): E11.9 - TYPE 2 DIABETES MELLITUS WITHOUT COMPLICATIONS SNOMED Code(s): 63982242 Comment: Lantus is 40 U hs, continue Lispro by SS.but sugars too high. Pt reports poor control at home. Pt needs better diet, better insulin directions. Transportation as outpt to primary special educator might be a problem. (7) Diabetic foot ulcer with osteomyelitis Current Visit: No Status: Acute Code(s): E11.621 - TYPE 2 DIABETES MELLITUS WITH FOOT ULCER; E11.69 - TYPE 2 DIABETES MELLITUS WITH OTHER SPECIFIED COMPLICATION; L97.509 - NON-PRESSURE CHRONIC ULCER OTH PRT UNSP FOOT W UNSP SEVERITY; M86.9 - OSTEOMYELITIS, UNSPECIFIED SNOMED Code(s): 88833838 Comment: Continue IV ceftriaxone. Pt reports severe diarrhea with cefepime, states Dr. Morales changed the antibiotic. Continue outpt tx plan. (8) Tobacco abuse Current Visit: No Status: Acute Code(s): Z72.0 - TOBACCO USE SNOMED Code(s ): 366025539 Comment: Encouraged pt to quit smoking and avoid second hand smoke. She states she smoke 1 cigarette per day. (9) DVT prophylaxis Current Visit: No Status: Acute Code(s): ESG7164 - SNOMED Code(s): 043482461 Comment: [place]
[2017-07-11] MEDS: KCL 10 MEQ/50 ML IVPREMIX* 10 MEQ/50 ML BAG IV SCH ×2 (22:01→23:32)
[2017-07-12] MEDS: KCL 10 MEQ/50 ML IVPREMIX* 10 MEQ/50 ML BAG IV SCH ×2 (00:41→02:03)
[2017-07-12] MEDS: Collagenase 250 MG/GM OINT* 30 GM TOPICAL SCH (08:39)
[2017-07-12] MEDS: Metoprolol Succinate XL TAB* 25 MG PO SCH (08:46)
[2017-07-12] MEDS: Potassium Chlor TAB* 10 MEQ TAB.ER PO SCH ×2 (08:46→13:01)
[2017-07-12] MEDS: Torsemide TAB* 20 MG PO SCH (08:46)
[2017-07-12] MEDS: Diltiazem CD CAP* 240 MG PO SCH (08:46)
[2017-07-12] MEDS: Apixaban* 5 MG TAB PO SCH (08:46)
[2017-07-12] MEDS: metroNIDAZOLE TAB* 250 MG PO SCH ×2 (08:46→13:01)
[2017-07-12] MEDS: Ferrous Sulfate TAB* 325 MG PO SCH (08:46)
[2017-07-12] MEDS: Ticagrelor* 90 MG TAB PO SCH (08:46)
[2017-07-12] MEDS: Insulin LISPRO* 1 UNITS UNIT SUBCUT SCH ×4 (08:47→13:00)
[2017-07-12 08:50] LABS: BUN/Creatinine Ratio 38.9 (8-20); Calcium 8.8 mg/dL (8.6-10.3); EGFR African American 103.3 (>60); EGFR Non-African American 80.3 (>60); Potassium 4.1 mmol/L (3.5-5.0)
[2017-07-12 15:40] VITALS: BP 119/44
[2017-07-12] MEDS ORDERED: Metolazone TAB* 5 MG PO SCH (17:19)
--- NOTE | 2017-07-13 03:13 | DS ---
CC: Andreina Meraz NP * DISCHARGE SUMMARY: DATE OF ADMISSION: 07/09/17 DATE OF DISCHARGE: 07/12/17 PRIMARY CARE PROVIDER: Andreina Meraz NP ADMISSION DIAGNOSES: 1. Shortness of breath. 2. Possible congestive heart failure. 3. Leukocytosis. 4. Chronic osteomyelitis. 5. Atrial fibrillation. 6. Diabetes mellitus. 7. Peripheral vascular disease. 8. Hyperlipidemia. DISCHARGE DIAGNOSES: 1. Volume overload. 2. Leukocytosis. 3. Chronic osteomyelitis. 4. Atrial fibrillation. 5. Diabetes mellitus. 6. Hyperlipidemia. 7. Peripheral vascular disease. HOSPITAL COURSE: The patient is a 67-year-old woman who presented to [facility] with a chief complaint of shortness of breath. Please see H and P for further details. The initial diagnosis was decompensated congestive heart failure. She was placed on 40 IV of Lasix, low-salt diet. An echocardiogram was obtained. The echo-cardiogram was not that remarkable. It did take quite a bit of medication to diurese her. She did feel somewhat better. She was not requiring any supplemental oxygen. She did have some edema. Her BNP was only 165 on admission. Discussion was had with the patient. She was not requiring any supplemental oxygen on the date of discharge. She did have some edema. We gave her Lasix to take p.r.n. if she gains more than 3 pounds and was told to follow up with her primary care doctor. She was in agreement with this plan. PHYSICAL EXAMINATION ON DAY OF DISCHARGE: An overweight woman, sitting up in bed, in no acute distress. Vital Signs: Temperature 98 degrees, heart rate 65 beats per minute, respiratory rate 16 breaths per minute, pulse ox 93%, and blood pressure 129/51. HEENT: Normocephalic and atraumatic. Pupils are equal , round, and reactive to light. Moist mucous membranes. Neck: Supple. No JVD , bruits, palpable thyroid or lymphadenopathy. Chest: Clear to auscultation. Cardiovascular Exam: S1 and S2 appreciated. Abdominal Exam: Positive bowel sounds in all 4 quadrants. Soft, nontender, and nondistended. Extremities: Bilateral pitting edema. Neuro: Alert and oriented x3, moves all extremities. Skin: No rashes or abnormalities. STUDIES DONE WHILE IN THE HOSPITAL: Chest x-ray 07/09/17. Impression: The chest x-ray appearance in light of the provided clinical history is most suggestive of cardiac pulmonary edema. Pneumonia in the left lung base is not entirely excluded. Transthoracic echocardiogram on 07/09/17. Impression: Global left ventricular wall motion and contractility within normal limits. Normal left ventricular systolic function. Estimated ejection fraction 55% to 60%. Right ventricular global systolic function is normal. Aortic valve leaflets are mildly thickened. Mild aortic stenosis. Mild mitral regurgitation. Trace tricuspid regurgitation. Evidence of mild pulmonary hypertension. No significant pericardial effusion. DISCHARGE MEDICATIONS: 1. Lipitor 40 mg daily. 2. Eliquis 5 mg twice daily. 3. Albuterol inhaler 1 puff inhaled every 4 hours as needed. 4. Acetaminophen 650 mg every 6 hours as needed. 5. Collagenase 250 mg per gram ointment applied topically daily as needed. 6. Cefepime 2 g IV daily. 7. Heparin flush 1 to 3 cc flush twice daily. 8. Furosemide 20 mg twice daily. 9. Diltiazem CD 240 mg daily. 10. Lantus insulin 65 units subcu at bedtime. 11. Flagyl 500 mg 3 times a day. 12. Metoprolol succinate 25 mg daily. 13. mg twice daily. 14. Brilinta 90 mg twice daily. 15. Furosemide 40 mg as needed for 3-pound weight gain in 1 day. TIME SPENT: Over 40 minutes was spent on this discharge, more than 25 minutes of which was spent in direct [id number] contact with the patient evaluation, physical exam , counselling, and coordination of care. [id number]/[facility] #: [id number] MTDD
== END 2017-07-12 16:15 | disposition home or self-care (01) | DRG 292 ==
LOC: ED 00:51 → MEDTELE 03:27
PROVIDERS: ADMIT Pediatrics; ATTEND Internal Medicine
DX: I50.9 Heart failure, unspecified (principal); Z68.41 Body mass index [BMI] 40.0-44.9, adult; E11.621 Type 2 diabetes mellitus with foot ulcer; E11.51 Type 2 diabetes mellitus with diabetic peripheral angiopathy without gangrene; E66.01 Morbid (severe) obesity due to excess calories; M86.672 Other chronic osteomyelitis, left ankle and foot; I48.91 Unspecified atrial fibrillation; E87.6 Hypokalemia; D64.9 Anemia, unspecified; L97.521 Non-pressure chronic ulcer of other part of left foot limited to breakdown of skin; E11.65 Type 2 diabetes mellitus with hyperglycemia; F17.210 Nicotine dependence, cigarettes, uncomplicated; D72.829 Elevated white blood cell count, unspecified; E11.649 Type 2 diabetes mellitus with hypoglycemia without coma; E78.5 Hyperlipidemia, unspecified; Z79.4 Long term (current) use of insulin; Z79.01 Long term (current) use of anticoagulants; Z79.1 Long term (current) use of non-steroidal anti-inflammatories (NSAID); Z79.899 Other long term (current) drug therapy; Z88.0 Allergy status to penicillin; Z88.8 Allergy status to other drugs, medicaments and biological substances; Z80.9 Family history of malignant neoplasm, unspecified
CPT/HCPCS: 36415; 36600; 71010; 80048; 80053; 80061; 81003; 81015; 82272; 82803; 82947; 83036; 83735; 83880; 84484; 85025; 85610; 85730; 93005; 93306; 94640; 99406; A9270-GY; J0696; J1940; J3480

== ENCOUNTER 2024-04-18 11:38 | Inpatient (IN) ==
[2024-04-18 13:04] LABS: ABS Basophils 0.1 10^3/uL (0.0-0.1); ABS Eosinophils 0.2 10^3/uL (0.0-0.5); ABS Lymphocytes 0.8 10^3/uL (1.0-4.8); ABS Monocytes 0.9 10^3/uL (0.0-0.9); ABS Neutrophils 7.3 10^3/uL (1.5-7.6); Eosinophil % 2.6 %; Hematocrit 27.4 % (35-45); Hemoglobin 8.9 g/dL (11.5-14.3); Mean Corpuscular Hemoglobin 28.5 pg (27-33); Mean Corpuscular Hgb Conc 32.4 g/dL (31-36); Platelet Count 221 10^3/uL (150-450); Red Blood Count 3.11 10^6/uL (3.63-4.92); White Blood Count 9.3 10^3/uL (3.8-11.8)
[2024-04-18 13:35] LABS: Albumin 3.2 g/dL (3.2-5.2); Albumin/Globulin Ratio 1.3 (1-3); C Reactive Protein 33.58 mg/L (<8.01); Calcium 8.5 mg/dL (8.6-10.3); Creatinine, Serum 1.29 mg/dL (0.51-0.95); Globulin 2.4 g/dL (2-4); Potassium 4.6 mmol/L (3.5-5.0); Total Bilirubin 0.4 mg/dL (0.2-1.0); Total Protein 5.6 g/dL (6.4-8.9)
[2024-04-18] MEDS: Piperacillin/Tazobac 3.375 BAG 3.375 GM/100 ML BAG IV ONE (14:31)
[2024-04-18 14:43] LABS: Erythrocyte Sed Rate 31 mm/Hr (0-29)
[2024-04-18] MEDS ORDERED: Vancomycin 2,000 MG in NS 0.9% 250 ml 250 ML IVPB SCH (15:00)
[2024-04-18] MEDS: Vancomycin 1,500 MG in NS 0.9% 250 ml 250 ML IVPB ONE (16:18)
[2024-04-18] MEDS ORDERED: Senna TAB 8.6 mg TAB PO PRN (17:59)
[2024-04-18] MEDS ORDERED: Albuterol HFA INHALER 8 gm MDI INH PRN (18:02)
[2024-04-18] MEDS ORDERED: Dextrose 50% Syringe 50 ml 25 GM/50 ML SYRINGE IV PUSH PRN (18:03)
[2024-04-18] MEDS ORDERED: Zosyn per Pharmacy NOTE FOLLOW UP SCH (19:00)
[2024-04-18] MEDS ORDERED: Vancomycin per Pharmacy 1 EA NOTE FOLLOW UP SCH (19:00)
[2024-04-18] MEDS: ZOSYN 3.375 GM Q8H per EXTENDED INFUSION IV SCH (19:19)
[2024-04-18] MEDS: Enoxaparin 40 MG/0.4 ML SYR SUBCUT SCH (19:21)
[2024-04-19] MEDS: ZOSYN 3.375 GM Q8H per EXTENDED INFUSION IV SCH (03:25)
[2024-04-19] MEDS: FLUTICAS/UMECLI/VILANT 200-62.5-25 MDI (NF) INH SCH (08:05)
[2024-04-19 08:29] LABS: ABS Basophils 0.1 10^3/uL (0.0-0.1); ABS Eosinophils 0.2 10^3/uL (0.0-0.5); ABS Lymphocytes 0.6 10^3/uL (1.0-4.8); ABS Monocytes 0.8 10^3/uL (0.0-0.9); ABS Nucleated RBC 0.01 10^3/ul; Eosinophil % 3.1 %; Hematocrit 27.6 % (35-45); Hemoglobin 9.1 g/dL (11.5-14.3); Lymphocyte % 7.4 %; Mean Corpuscular Hemoglobin 29.5 pg (27-33); Mean Corpuscular Hgb Conc 32.8 g/dL (31-36); Mean Corpuscular Volume 89.7 fL (80-97); Mean Platelet Volume 8.2 fL (7.5-11.2); Nucleated Red Blood Cells % 0.1 %/100WBC (0.0-0.8); Platelet Count 208 10^3/uL (150-450); Red Blood Count 3.07 10^6/uL (3.63-4.92); Red Cell Distribution Width 17.5 % (12-17); White Blood Count 7.7 10^3/uL (3.8-11.8)
[2024-04-19 08:47] LABS: Calcium 8.3 mg/dL (8.6-10.3); Creatinine, Serum 1.18 mg/dL (0.51-0.95); Potassium 4.9 mmol/L (3.5-5.0); eGFR CKD-EPI 47.9 (>60)
[2024-04-19] MEDS: Aspirin EC 81 mg TAB.EC (enteric coated) PO SCH (08:48)
[2024-04-19] MEDS: Insulin GLARGINE 100 un/ml 10 ml VIAL SUBCUT SCH (08:49)
[2024-04-19] MEDS ORDERED: Vancomycin 750 MG in NS 0.9% 250 ML IVPB SCH (16:00)
[2024-04-19] MEDS: Vancomycin 1000 MG in NS 0.9% 250 ML IVPB SCH (17:15)
[2024-04-20 07:31] LABS: Hematocrit 28.2 % (35-45); Hemoglobin 9.4 g/dL (11.5-14.3); Mean Corpuscular Hemoglobin 29.4 pg (27-33); Mean Corpuscular Hgb Conc 33.3 g/dL (31-36); Mean Corpuscular Volume 88.5 fL (80-97); Mean Platelet Volume 8.4 fL (7.5-11.2); Platelet Count 205 10^3/uL (150-450); Red Blood Count 3.18 10^6/uL (3.63-4.92); Red Cell Distribution Width 16.9 % (12-17); White Blood Count 8.2 10^3/uL (3.8-11.8)
[2024-04-20 07:59] LABS: Calcium 8.2 mg/dL (8.6-10.3); Potassium 4.5 mmol/L (3.5-5.0); eGFR CKD-EPI 58.4 (>60)
[2024-04-20 11:04] LABS: INR 1.13 (0.85-1.14)
[2024-04-20 11:11] LABS: Albumin 3.2 g/dL (3.2-5.2); Albumin/Globulin Ratio 1.2 (1-3); Calcium 8.3 mg/dL (8.6-10.3); Creatinine, Serum 0.97 mg/dL (0.51-0.95); Globulin 2.6 g/dL (2-4); Potassium 4.6 mmol/L (3.5-5.0); Total Bilirubin 0.6 mg/dL (0.2-1.0); Total Protein 5.8 g/dL (6.4-8.9); eGFR CKD-EPI 60.6 (>60)
[2024-04-20] MEDS: Famotidine IV 10 MG/ML 2 ml VIAL (20 mg) IV SLOW PU ONE (11:18)
[2024-04-20] MEDS: cefTRIAXone 1 gm/50 mL D5W 1 GM/50 ML BAG IV SCH (11:24)
[2024-04-20] MEDS: Remdesivir 100 mg Vial 200 MG in NS 0.9% 250 ml 210 ML IV ONE (12:31)
[2024-04-20 13:46] LABS: Rapid COVID-19 Molecular Detected (Undetected)
[2024-04-20] MEDS: Polyethylene Glycol 3350 17 GM PACKET PO SCH (20:11)
[2024-04-21 09:10] LABS: Albumin 3.3 g/dL (3.2-5.2); Albumin/Globulin Ratio 1.2 (1-3); Calcium 8.7 mg/dL (8.6-10.3); Creatinine, Serum 0.74 mg/dL (0.51-0.95); Globulin 2.7 g/dL (2-4); Potassium 5.2 mmol/L (3.5-5.0); Total Bilirubin 0.5 mg/dL (0.2-1.0); eGFR CKD-EPI 83.8 (>60)
[2024-04-21 10:05] LABS: Urine Amorphous Crystals Present /HPF (Absent); Urine Appearance Clear; Urine Bacteria Absent /HPF (Absent); Urine Bilirubin Negative (Negative); Urine Blood Negative (Negative); Urine Color Colorless; Urine Glucose 4+ (>=1000 mg/dL) (Negative); Urine Ketones Negative (Negative); Urine Nitrite Negative (Negative); Urine Protein 1+ (>=30 mg/dL) (Negative); Urine Red Blood Cell Absent /HPF (0-Trace); Urine Squamous Epithelial Cell Present /HPF (Absent); Urine Urobilinogen Negative (Negative); Urine White Blood Cell 3+(>20/hpf) /HPF (0-Trace)
[2024-04-21] MEDS: Remdesivir 100 mg Vial 100 MG in NS 0.9% 250 ml 230 ML IV SCH (10:49)
[2024-04-21] MEDS: Insulin GLARGINE 100 un/ml 10 ml VIAL SUBCUT ONE (12:57)
[2024-04-21 15:52] LABS: INR 1.07 (0.85-1.14)
[2024-04-21 16:04] LABS: Creatinine, Serum 0.87 mg/dL (0.51-0.95)
[2024-04-22 05:53] LABS: ABS Lymphocytes 0.6 10^3/uL (1.0-4.8); ABS Neutrophils 9.7 10^3/uL (1.5-7.6); Eosinophil % 0.1 %; Hematocrit 28.5 % (35-45); Hemoglobin 9.6 g/dL (11.5-14.3); Lymphocyte % 5.5 %; Mean Corpuscular Hemoglobin 29.4 pg (27-33); Mean Corpuscular Hgb Conc 33.5 g/dL (31-36); Mean Corpuscular Volume 87.7 fL (80-97); Mean Platelet Volume 8.2 fL (7.5-11.2); Platelet Count 239 10^3/uL (150-450); Red Blood Count 3.26 10^6/uL (3.63-4.92); Red Cell Distribution Width 16.9 % (12-17); White Blood Count 11.4 10^3/uL (3.8-11.8)
[2024-04-22 06:02] LABS: INR 1.04 (0.85-1.14)
[2024-04-22 06:35] LABS: Albumin/Globulin Ratio 1.2 (1-3); Calcium 8.3 mg/dL (8.6-10.3); Creatinine, Serum 0.8 mg/dL (0.51-0.95); Globulin 2.5 g/dL (2-4); Magnesium 2.2 mg/dL (1.9-2.7); Total Bilirubin 0.3 mg/dL (0.2-1.0); Total Protein 5.5 g/dL (6.4-8.9); eGFR CKD-EPI 76.3 (>60)
[2024-04-22] MEDS: Insulin GLARGINE 100 un/ml 10 ml VIAL SUBCUT SCH ×2 (08:08→11:12)
[2024-04-22] MEDS: Insulin GLARGINE 100 un/ml 10 ml VIAL SUBCUT ONE (11:08)
[2024-04-22] MEDS ORDERED: Vancomycin Trough Check NOTE FOLLOW UP ONE (15:30)
[2024-04-23 06:44] LABS: INR 1.07 (0.85-1.14)
[2024-04-23 07:21] LABS: Albumin 3.2 g/dL (3.2-5.2); Calcium 8.6 mg/dL (8.6-10.3); Creatinine, Serum 0.92 mg/dL (0.51-0.95); Potassium 4.7 mmol/L (3.5-5.0); Total Protein 5.8 g/dL (6.4-8.9); eGFR CKD-EPI 64.5 (>60)
[2024-04-23 07:22] LABS: Albumin/Globulin Ratio 1.2 (1-3); Globulin 2.6 g/dL (2-4); Total Bilirubin 0.3 mg/dL (0.2-1.0)
[2024-04-23] MEDS: Insulin GLARGINE 100 un/ml 10 ml VIAL SUBCUT SCH (08:58)
[2024-04-23] MEDS: Insulin GLARGINE 100 un/ml 10 ml VIAL SUBCUT ONE (12:12)
[2024-04-24 06:42] LABS: INR 1.04 (0.85-1.14)
[2024-04-24 06:53] LABS: Albumin 3.2 g/dL (3.2-5.2); Albumin/Globulin Ratio 1.2 (1-3); Calcium 8.7 mg/dL (8.6-10.3); Creatinine, Serum 0.94 mg/dL (0.51-0.95); Globulin 2.7 g/dL (2-4); Potassium 4.9 mmol/L (3.5-5.0); Total Bilirubin 0.4 mg/dL (0.2-1.0); Total Protein 5.9 g/dL (6.4-8.9); eGFR CKD-EPI 62.9 (>60)
[2024-04-24] MEDS: Insulin GLARGINE 100 un/ml 10 ml VIAL SUBCUT SCH (08:48)
[2024-04-24 09:49] VITALS: BP 160/93
[2024-04-24] MEDS: Influenza Vaccine *TRI* 2024-25* 0.5 ML SYRINGE IM ONE (11:26)
== END 2024-04-24 12:00 | DRG 564 ==
LOC: ED 11:38 → EDHOLD 11:38 → MED 04-19 00:09 → SUATTDRO 04-21 15:16
PROVIDERS: ADMIT Internal Medicine; ATTEND Student in an Organized Health Care Education/Training Program